=== PATIENT | female | born 1965 | race Caucasian/White ===

== ENCOUNTER 2017-02-21 11:59 | Inpatient (IN) ==
[2017-02-21] MEDS ORDERED: 0.9 % Sodium Chloride 1,000 ML IVC ONE ×3 (12:15→15:14)
--- NOTE | 2017-02-21 12:40 | Emergency Department Note ---
Disposition Clinical Impression: Lactic acidosis Umbilical hernia Qualifiers: Obstruction and gangrene presence: without obstruction or gangrene Qualified Code(s): K42.9 - Umbilical hernia without obstruction or gangrene Disposition: Admitted As Inpatient Condition: Good Time of Disposition: 15:36 Abdominal Pain HPI - General Chief Complaint: ED Abdominal Pain Stated Complaint: abd pain Time Seen by Provider: 02/21/17 12:14 Source: patient Mode of arrival: ambulatory Limitations: no limitations Nursing Notes Reviewed: Yes Vital Signs Reviewed: Yes - History of Present Illness HPI Narrative: 51 [place] old female presnets to the ED with complaints of umbilical hernia pain. She has had a cholecystectomy in the past by Dr. Bergeron a few years ago and has started to feel is come out. It is reducible and does not appear to be strangulated or incarcerated. Atinet vital signs are stable and she states that she has some nausea associated with it. Marija states that her children have had hernias in the past and they think it is simliar to what they have had. She has nausea now. she is able ot pass stool and gas without a prblems. Denies heamturia, bloody stools or fevers. Pain Scale: 8 - Related Data Home Medications Medication Instructions Recorded Confirmed Lisinopril [Zestril] 20 mg PO DAILY 11/09/14 11/09/14 Metformin [Glucophage] 500 mg PO BIDWM 11/09/14 11/09/14 Metoprolol [Lopressor] 25 mg PO BID 11/09/14 11/09/14 l-Norgest/E.estradiol-E.estrad 1 each PO 11/09/14 11/09/14 [Seasonique 0.15-0.03-0.01 Tab] Previous Rx's Medication Instructions Recorded GuaiFENesin ER [Mucinex] 1,200 mg PO BID #20 tbbp.12hr 05/10/15 Albuterol Sulfate [Albuterol 2 puff IH Q4HR PRN #1 unit 05/27/15 Inhaler] Amoxicillin/Clavulanate [Augmentin] 875 mg PO BIDWM #20 tablet 05/27/15 Fluconazole [Diflucan] 150 mg PO Q72H #3 tablet 05/27/15 Ipratropium/Albuterol Neb [Duoneb] 3 ml IH Q4HR PRN #100 vial.neb 05/27/15 Nebulizer Accessories [Pillow Mask] 1 each MC PRN PRN #1 each 05/27/15 Promethazine/Codeine 5 ml PO Q4HR PRN #120 ml 05/27/15 [Phenergan/Codeine] Allergies Allergy/AdvReac Type Severity Reaction Status Date / Time meloxicam Allergy Hives Verified 02/21/17 12:11 metoclopramide [From Reglan] Allergy Hives Verified 02/21/17 12:11 morphine Allergy Fever Verified 02/21/17 12:11 ondansetron Allergy Hives Verified 02/21/17 12:11 [From Zofran (as hydrochloride)] Constitutional: Denies: fever, chills, weakness, weight change Eyes: Denies: eye pain, eye discharge, vision change ENT ED: Denies: ear pain, throat pain, dental pain, hearing loss, epistaxis, congestion, dysphagia Cardiovascular: Denies: chest pain, palpitations, dyspnea on exertion, edema, syncope Respiratory: Denies: cough, dyspnea, wheezes, hemoptysis, stridor Gastrointestinal: Reports: abdominal pain, nausea. Denies: vomiting, diarrhea, constipation, hematemesis, melena, hematochezia Genitourinary: Denies: dysuria, frequency, hematuria, discharge Musculoskeletal: Denies: back pain, neck pain, arthralgia, myalgia Integumentary: Denies: rash, abrasion, lesions Neurological: Denies: headache, weakness, numbness, paresthesias, confusion, abnormal gait, vertigo Psychiatric: Denies: anxiety, depression, suicidal thoughts, homicidal thoughts , auditory hallucinations, visual hallucinations Endocrine: Denies: fatigue Hematological/Lymphatic: Denies: easy bleeding, easy bruising Allergic/Immunologic: Denies: facial swelling, urticaria Abdominal Pain PMH - Past Medical History Medical history: Reports: diabetes, hypertension, other Female Surgical History: Reports: other ORGANISATION AND [employer] 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 Psychiatric history: Reports: no psych history - Social History Smoking status: Never smoker Alcohol use: Reports: none Drug use: Reports: none Physical Exam - General Limitations: no limitations General appearance: alert - Head Head exam: atraumatic, normocephalic, normal inspection - Eye Eye exam: Present: normal appearance, PERRL, EOMI - Expanded Eye Exam Pupils: Bilateral: reactive - ENT ENT exam: normal exam, normal oropharynx, mucous membranes moist - Expanded ENT Exam External ear exam: Present: normal external inspection Mouth exam: Present: normal external inspection Teeth exam: Present: normal inspection Throat exam: Present: normal inspection - Neck Neck exam: Present: normal inspection, full ROM, trachea midline - Chest Chest inspection: Present: normal inspection, symmetric chest wall rise - Respiratory Respiratory exam: Present: normal lung sounds bilaterally - Cardiovascular Cardiovascular exam: Present: regular rate, normal rhythm, normal heart sounds - Abdominal Exam Abdominal exam: Present: soft, Non-Tender, hernia (umbilical at the 0200 position, felt during a cough and reducible. ). Absent: tenderness, distention , guarding, rebound, rigidity Abdominal tenderness: Present: mild (periumbilical) - Extremities Exam Extremities exam: Present: normal inspection, full ROM. Absent: tenderness, pedal edema - Expanded Upper Extremity Exam Shoulder exam: Present: normal inspection, full ROM Arm exam: Present: normal inspection, full ROM Elbow exam: Present: normal inspection, full ROM Forearm/Wrist exam: Present: normal inspection, full ROM Hand exam: Present: normal inspection, full ROM Vascular exam: Normal: capillary refill, radial pulse - Expanded Lower Extremity Exam Hip/Pelvis exam: Present: normal inspection, full ROM Upper leg exam: Present: normal inspection, full ROM Knee exam: Present: normal inspection, full ROM Lower leg exam: Present: normal inspection, full ROM Ankle exam: Present: normal inspection, full ROM Foot/toe exam: Present: normal inspection, full ROM Neurovascular/Tendon exam: Absent: motor deficit, sensory deficit, tendon deficit - Back Exam Back exam: Present: normal inspection, full ROM. Absent: tenderness - Neurological Exam Neurological exam: Present: alert, oriented X3 - Expanded Neurological Exam Patient oriented to: Present: person, place, time Coma Scale Eye Opening: Spontaneous Coma Scale Motor Response: Obeys Commands Coma Scale Verbal Response: Oriented Coma Scale Total: 15 - Psychiatric Psychiatric exam: Present: normal affect, normal mood - Skin Skin exam: Present: warm, dry, intact, normal color Course Course Narrative: we will do lab work and ABCT, zofran/IVF for thearpy - Consultations Consultation #1: discussed case with radiologist to address the umbilical hernia finding and to address whether there is a possible obstruction vs. gut evaluation. He staets that it does not appear there is a transition point and that there does not appear to be an obstruction or necrotci bowel or strangulatin/incarceration to the bowel. I will still admit it to medicine and consult with surgery due to incresd lactic acid Time: 14:34 Consultation #2: discussed case with Jose Luisisrrael and she has taken a look at the ABCT herself and stats it appers it is fatty tissue that is entrapped. She states that she will see the patinet in consult with admission to medicine. Time: 15:35 Vital Signs Temperature 99 F 02/21/17 12:11 Pulse Rate 88 02/21/17 12:11 Respiratory Rate 20 02/21/17 12:11 Blood Pressure 119/79 02/21/17 12:11 O2 Sat by Pulse Oximetry 97 02/21/17 12:11 Temperature 99 F 02/21/17 12:11 Pulse Rate 89 02/21/17 15:17 Respiratory Rate 18 02/21/17 15:17 Blood Pressure 104/63 02/21/17 15:17 O2 Sat by Pulse Oximetry 98 02/21/17 15:17 Oxygen Delivery Oxygen Delivery Room Air Abdominal Pain - Lab Data Result diagrams: 02/21/17 12:40 02/21/17 12:40 Lab Results 02/21/17 02/21/17 02/21/17 Range/Units 12:40 12:40 12:40 WBC 8.6 (4.3-11.1) K/mcL RBC 5.06 H (3.82-4.97) M/mcL Hgb 13.8 (11.5-15.4) g/dL Hct 44.1 (35.3-44.9) % MCV 87.2 (83.0-100.0) fL MCH 27.3 L (28.0-33.3) pg MCHC 31.3 L (31.6-35.5) g/dL RDW 14.5 (11.5-14.5) % Plt Count 275 (140-400) K/mcL MPV 9.5 (9.4-12.4) fL Immature Gran % 0.3 (0-4) % Seg Neutrophils % 65.1 % Lymphocytes % 25.6 % Monocytes % 7.4 % Eosinophils % 1.3 % Basophils % 0.3 % Neutrophils # 5.6 (1.6-8.9) K/mcL Lymphocytes # 2.2 (0.6-4.6) K/mcL Monocytes # 0.6 (0.0-1.3) K/mcL Eosinophils # 0.1 (0.0-0.6) K/mcL Basophils # 0.0 (0.0-0.2) K/mcL Sodium 135 L (136-145) mEq/L Potassium 4.7 H (3.5-4.5) mEq/L Chloride 100 (98-109) mEq/L Carbon Dioxide 19 (19-29) mEq/L BUN 17 (7-20) mg/dL Creatinine 0.71 (0.57-1.11) mg/dL Est GFR ( Amer) > 60 (> 60) Est GFR (Non-Af Amer) > 60 (> 60) BUN/Creatinine Ratio 24 (6-26) Glucose 200 H (70-99) mg/dL Calculated Osmolality 287 (280-300) Lactic Acid 5.7 H* (0.5-2.2) mmol/L Calcium 9.6 (8.6-10.8) mg/dL Total Bilirubin 0.2 (0.2-1.2) mg/dL Direct Bilirubin 0.1 (0.0-0.5) mg/dL Indirect Bilirubin 0.1 (0.0-1.2) mg/dL AST 14 (5-34) Units/L ALT 13 (0-55) Units/L Alkaline Phosphatase 80 (38-126) Units/L Serum Total Protein 7.3 (6.0-8.3) g/dL Albumin 3.1 L (3.5-5.0) g/dL Globulin 4.2 H (2.4-3.5) g/dL Albumin/Globulin Ratio 0.7 L (1.1-2.2) Amylase 72 (25-125) Units/L Lipase 66 (8-78) Units/L Urine Color (Yellow) Urine Clarity (Clear) Urine pH (5.0-8.0) pH Units Ur Specific Drain (1.010-1.025) Urine Protein (Neg-Trace) mg/dL Urine Glucose (UA) (Normal) mg/dL Urine Ketones (Negative) mg/dL Urine Blood (Negative) Urine Nitrite (Negative) Urine Bilirubin (Negative) Urine Urobilinogen (Normal) mg/dL Ur Leukocyte Esterase (Negative) Urine Microscopic RBC (0-3) per hpf Urine Microscopic WBC (0-3) per hpf Ur Squamous Epith Cells (None-Few) per lpf Urine Bacteria (None-Few) per hpf Hyaline Casts (None-Few) per lpf Ur Culture Indicated? (NO) 02/21/17 Range/Units 12:48 WBC (4.3-11.1) K/mcL RBC (3.82-4.97) M/mcL Hgb (11.5-15.4) g/dL Hct (35.3-44.9) % MCV (83.0-100.0) fL MCH (28.0-33.3) pg MCHC (31.6-35.5) g/dL RDW (11.5-14.5) % Plt Count (140-400) K/mcL MPV (9.4-12.4) fL Immature Gran % (0-4) % Seg Neutrophils % % Lymphocytes % % Monocytes % % Eosinophils % % Basophils % % Neutrophils # (1.6-8.9) K/mcL Lymphocytes # (0.6-4.6) K/mcL Monocytes # (0.0-1.3) K/mcL Eosinophils # (0.0-0.6) K/mcL Basophils # (0.0-0.2) K/mcL Sodium (136-145) mEq/L Potassium (3.5-4.5) mEq/L Chloride (98-109) mEq/L Carbon Dioxide (19-29) mEq/L BUN (7-20) mg/dL Creatinine (0.57-1.11) mg/dL Est GFR ( Amer) (> 60) Est GFR (Non-Af Amer) (> 60) BUN/Creatinine Ratio (6-26) Glucose (70-99) mg/dL Calculated Osmolality (280-300) Lactic Acid (0.5-2.2) mmol/L Calcium (8.6-10.8) mg/dL Total Bilirubin (0.2-1.2) mg/dL Direct Bilirubin (0.0-0.5) mg/dL Indirect Bilirubin (0.0-1.2) mg/dL AST (5-34) Units/L ALT (0-55) Units/L Alkaline Phosphatase (38-126) Units/L Serum Total Protein (6.0-8.3) g/dL Albumin (3.5-5.0) g/dL Globulin (2.4-3.5) g/dL Albumin/Globulin Ratio (1.1-2.2) Amylase (25-125) Units/L Lipase (8-78) Units/L Urine Color Dark Yellow (Yellow) Urine Clarity Clear (Clear) Urine pH 6.0 (5.0-8.0) pH Units Ur Specific Drain > 1.030 H (1.010-1.025) Urine Protein 100 H (Neg-Trace) mg/dL Urine Glucose (UA) 250 H (Normal) mg/dL Urine Ketones Negative (Negative) mg/dL Urine Blood Negative (Negative) Urine Nitrite Negative (Negative) Urine Bilirubin Small H (Negative) Urine Urobilinogen Normal (Normal) mg/dL Ur Leukocyte Esterase Negative (Negative) Urine Microscopic RBC 3-5 H (0-3) per hpf Urine Microscopic WBC 0-3 (0-3) per hpf Ur Squamous Epith Cells Many H (None-Few) per lpf Urine Bacteria None Seen (None-Few) per hpf Hyaline Casts None Seen (None-Few) per lpf Ur Culture Indicated? NO (NO)
[2017-02-21] MEDS ORDERED: Metoclopramide 10 MG/2 ML VIAL IVP ONE (12:41)
[2017-02-21] MEDS ORDERED: *HR* Promethazine 25 MG/ML VIAL IVP ONE (12:48)
[2017-02-21 13:00] LABS: Basophils % 0.3 %; Eosinophils # 0.1 K/mcL (0.0-0.6); Eosinophils % 1.3 %; Hematocrit 44.1 % (35.3-44.9); Hemoglobin 13.8 g/dL (11.5-15.4); Immature Granulocytes % 0.3 % (0-4); Lymphocytes # 2.2 K/mcL (0.6-4.6); Lymphocytes % 25.6 %; Mean Corpuscular HGB Conc 31.3 g/dL (31.6-35.5); Mean Corpuscular Hemoglobin 27.3 pg (28.0-33.3); Mean Corpuscular Volume 87.2 fL (83.0-100.0); Mean Platelet Volume 9.5 fL (9.4-12.4); Monocytes # 0.6 K/mcL (0.0-1.3); Monocytes % 7.4 %; Neutrophils # 5.6 K/mcL (1.6-8.9); Platelet Count 275 K/mcL (140-400); Red Blood Count 5.06 M/mcL (3.82-4.97); Red Cell Distribution Width 14.5 % (11.5-14.5); Segmented Neutrophils % 65.1 %
[2017-02-21 13:06] LABS: Bilirubin,Urine Small (Negative); Blood,Urine Negative (Negative); Clarity,Urine Clear (Clear); Color,Urine Dark Yellow (Yellow); Glucose,Urine (UA) 250 mg/dL (Normal); Ketones,Urine Negative (Negative); Leukocyte Esterase,Urine Negative (Negative); Nitrite,Urine Negative (Negative); Protein,Urine 100 mg/dL (Neg-Trace); Specific Gravity,Urine > 1.030 (1.010-1.025); Urobilinogen,Urine Normal (Normal)
[2017-02-21 13:08] LABS: Bacteria,Urine None Seen per hpf (None-Few); Hyaline Casts,Urine None Seen per lpf (None-Few); Squamous Epithelial Cell,Urine Many per lpf (None-Few); WBC,Urine 0-3 per hpf (0-3)
[2017-02-21 13:14] LABS: Alanine Aminotransferase 13 Units/L (0-55); Albumin 3.1 g/dL (3.5-5.0); Albumin/Globulin Ratio 0.7 (1.1-2.2); Alkaline Phosphatase 80 Units/L (38-126); Amylase 72 Units/L (25-125); Aspartate Amino Transferase 14 Units/L (5-34); BUN/Creatinine Ratio 24 (6-26); Bilirubin,Direct 0.1 mg/dL (0.0-0.5); Bilirubin,Indirect 0.1 mg/dL (0.0-1.2); Bilirubin,Total 0.2 mg/dL (0.2-1.2); Blood Urea Nitrogen 17 mg/dL (7-20); Calcium 9.6 mg/dL (8.6-10.8); Carbon Dioxide 19 mEq/L (19-29); Chloride 100 mEq/L (98-109); Globulin 4.2 g/dL (2.4-3.5); Glucose 200 mg/dL (70-99); Lipase 66 Units/L (8-78); Osmolality,Calculated 287 (280-300); Potassium 4.7 mEq/L (3.5-4.5); Sodium 135 mEq/L (136-145); Total Protein 7.3 g/dL (6.0-8.3); eGFR For African Americans > 60 (> 60); eGFR For Non-African Americans > 60 (> 60)
[2017-02-21] MEDS ORDERED: *HR* FentaNYL (PF) 100 MCG/2 ML VIAL IVP ONE (13:55)
--- NOTE | 2017-02-21 15:40 | General Surgery Consult Note ---
<Letitia Camarillo - Last Filed: 02/21/17 15:49> Date of Encounter: 02/21/17 Time of Encounter: 15:15 Assessment and Plan (1) Umbilical hernia Current Visit: Yes Status: Acute No acute inflammatory changes noted on CT scan Supportive care and pain control Empiric IV antibiotics- Zosyn Serial abdominal exams IV fluids May have clear liquids as tolerated NPO after midnight Repeat am labs Qualifiers: Obstruction and gangrene presence: without obstruction or gangrene Qualified Code(s): K42.9 - Umbilical hernia without obstruction or gangrene (2) Lactic acidosis Current Visit: Yes Status: Acute IV fluids Repeat per hospitalist (3) Hyperlipidemia Current Visit: Yes Status: Chronic Qualifiers: Hyperlipidemia type: unspecified Qualified Code(s): E78.5 - Hyperlipidemia , unspecified (4) Obesity (BMI 30-39.9) Current Visit: Yes Status: Chronic (5) Thoracic aortic aneurysm Current Visit: Yes Status: Chronic Followed per Dr. Pimentel as outpatient Qualifiers: Presence of rupture: without rupture Qualified Code(s): I71.2 - Thoracic aortic aneurysm, without rupture (6) Adnexal mass Current Visit: Yes Status: Acute Consider pelvic ultrasound for further evaluation of adnexal mass (left) [employer] to evaluate for further concerns Management per hospitalist (7) History of hypertension Current Visit: No Status: Chronic Currently normotensive Management per hospitalist (8) Non-insulin dependent type 2 diabetes mellitus Current Visit: No Status: Chronic BS- 200 Management per hospitalist History of Present Illness Consult date: 02/21/17 Reason for consult: abdominal pain Requesting physician: Anisa Diane History of present illness: Mrs. Carpenter is a very pleasant 51-year-old female who presented to the office today with a three-day history of umbilical discomfort. She states that the pain came on suddenly approximately 3 days ago and has progressively worsened. She states that the pain is sharp and stabbing and is focused in the umbilical region and does radiate around to bilateral sides. She denies any aggravating or alleviating factors. She has never experienced pain like this in the past. She does report significant nausea which she attributes to the significant amount of pain she is experiencing. Denies any vomiting. She has no appetite at this time. She states that she does have diarrhea but this is chronic for her. She states that she has IBD and has diarrhea approximately 3 times per day. She denies any fevers or chills. She denies any shortness of breath or chest pains. She denies any difficulty with urination. She is diabetic and states that her blood sugars have been running in the 140s. She has had a CAT scan which shows an umbilical hernia without significant inflammatory changes. We have been asked to see and evaluate the patient for recommendations. Past Med Surg Social Fam HX - Past Medical History Source: patient, old records reviewed Medical history: aortic aneurysm (Ascending thoracic aortic aneurysm- Followed by Dr. Pimentel), diabetes (Type 2- non insulin dependent), GERD, hyperlipidemia, hypertension, other (Obesity; Fibromyalgia) Psychiatric history: anxiety, depression - Past Surgical History Surgical History: appendectomy, cholecystectomy, other ( X 2; colonoscopy 3 years ago (normal)) - Social History Smoking Status: Never smoker Smokeless Tobacco Status: No Alcohol use: none Drug use: none Occupational status: employed Activity Level: Independent ambulation - Family History Mother Living Status: Still Living Hx Family Cancer: Yes (breast cancer (40's)) Hx Family GI Disorders: Yes (Colon polyps) Hx Family Endocrine Disorder: Yes (diabeties) Father Living Status: Age at : 76 Cause of : Sepsis Hx Family Endocrine Disorder: Yes (Diabetes Mellitus) Brother Living Status: Age at : 54 Cause of : Liver cancer Hx Family Cancer: Yes (Liver cancer) Daughter Living Status: Still Living Hx Family Cardiac Disorders: Yes (Heart arrhythmia) Son Living Status: Still Living Hx Family Musculoskeletal Disorders: Yes (DDD) Medications and Allergies Lisinopril [Zestril] 20 mg PO DAILY 11/09/14 [History] Metformin [Glucophage] 1,000 mg PO BIDWM 11/09/14 [History] Metoprolol [Lopressor] 25 mg PO BID 11/09/14 [History] Aripiprazole [Abilify] 2.5 mg PO DAILY 02/21/17 [History] Aspirin [Lo-Dose Aspirin EC] 81 mg PO DAILY 02/21/17 [History] Atorvastatin [Lipitor] 40 mg PO HS 02/21/17 [History] Canagliflozin [Invokana] 300 mg PO DAILY 02/21/17 [History] DULoxetine [Cymbalta] 90 mg PO DAILY 02/21/17 [History] Exenatide Microspheres [Bydureon Pen] 2 mg SQ QWEEK 02/21/17 [History] HYDROcodone/Acet 5/325 mg [[place] 5-325 mg] 1 tab PO Q8H 02/21/17 [History] Norethindrone-E.estradiol-Iron [Lo Loestrin Fe 1-10 Tablet] 1 tab PO DAILY 02/21 [History] [place]-3 Acid Ethyl Esters [Lovaza] 1 gm PO DAILY 02/21/17 [History] Omeprazole [PriLOSEC] 20 mg PO DAILY 02/21/17 [History] Triamterene/Hydrochlorothiazid [Dyazide 37.5-25 Capsule] 1 cap PO DAILY [History] 3 Allergy/AdvReac Type Severity Reaction Status Date / Time meloxicam Allergy Hives Verified 02/21/17 12:11 metoclopramide [From Reglan] Allergy Hives Verified 02/21/17 12:11 morphine Allergy Fever Verified 02/21/17 12:11 ondansetron Allergy Hives Verified 02/21/17 12:11 [From Zofran (as hydrochloride)] Review of Systems All systems PM: reviewed and no additional remarkable complaints except as stated (in the HPI) All systems PM: A 10-system review of systems was performed and is negative for pertinent findings except as documented above in the HPI. General Surgery Exam Initial Vital Signs Temp Pulse Resp BP Pulse Ox 99 F 88 20 119/79 97 02/21/17 12:11 02/21/17 12:11 02/21/17 12:11 02/21/17 12:11 02/21/17 12:11 - General physical appearance well developed, well nourished, moderate pain - Eyes PERRL, normal ocular movement - ENT normal mucosa, atraumatic, normocephalic - Neck trachea midline - Respiratory normal respiratory effort, clear to auscultation - Cardiovascular Cardiovascular exam: Present: RRR - Abdomen Abdomen general surgery: Present: bowel sounds present, soft, tender ( Perumbilical) - Integumentary Integumentary general surgery: Present: warm and dry - Neurologic Present: CN 2-12 grossly intact - Musculoskeletal Present: normal gait, normal posture - Psychiatric Psychiatric general surgery: Present: appropriate, oriented to person, oriented to place, oriented to time, speech is normal, memory intact Exam Initial Vital Signs Temp Pulse Resp BP Pulse Ox 99 F 88 20 119/79 97 02/21/17 12:11 02/21/17 12:11 02/21/17 12:11 02/21/17 12:11 02/21/17 12:11 Results - Labs 02/21/17 12:40 02/21/17 12:40 Abnormal lab results RBC 5.06 M/mcL (3.82-4.97) H 02/21/17 12:40 MCH 27.3 pg (28.0-33.3) L 02/21/17 12:40 MCHC 31.3 g/dL (31.6-35.5) L 02/21/17 12:40 Sodium 135 mEq/L (136-145) L 02/21/17 12:40 Potassium 4.7 mEq/L (3.5-4.5) H 02/21/17 12:40 Glucose 200 mg/dL (70-99) H 02/21/17 12:40 Lactic Acid 5.7 mmol/L (0.5-2.2) H* 02/21/17 12:40 Albumin 3.1 g/dL (3.5-5.0) L 02/21/17 12:40 Globulin 4.2 g/dL (2.4-3.5) H 02/21/17 12:40 Albumin/Globulin Ratio 0.7 (1.1-2.2) L 02/21/17 12:40 Ur Specific [place] > 1.030 (1.010-1.025) H 02/21/17 12:48 Urine Protein 100 mg/dL (Neg-Trace) H 02/21/17 12:48 Urine Glucose (UA) 250 mg/dL (Normal) H 02/21/17 12:48 Urine Bilirubin Small (Negative) H 02/21/17 12:48 Urine Microscopic RBC 3-5 per hpf (0-3) H 02/21/17 12:48 Ur Squamous Epith Cells Many per lpf (None-Few) H 02/21/17 12:48 All other labs normal. - Imaging Additional studies: Abdomen/Pelvis CT 02/21/17 12:15 IMPRESSION: 1. No acute findings identified in the abdomen and pelvis. 2. 4.7 cm cystic lesion in the left adnexa. Consider ovarian cyst or less likely, cystic ovarian neoplasm in the differential. Further assessment with dedicated pelvic ultrasound may be helpful. D/ / Nate Humphries MD / Nate Humphries MD Interpreting Provider: Nate Humphries MD Consult Discharge Plan - Plan Referrals: Marbin Ruvalcaba MD [Primary Care Provider] - - Attending Attestation For this encounter, I have reviewed the GEM TECHNICIAN or PA documentation, treatment plan, and medical decision making; and I have had face to face time with this patient. <Brittnee Shahid - Last Filed: 02/23/17 12:14> Date of Encounter: 02/22/17 Assessment and Plan (1) Incarcerated umbilical hernia Current Visit: Yes Status: Chronic discussed with patient she has an incarcerated umbilical hernia, will plan open repair, due to elevated lactate on admission am a concerned regarding omental ischemia, may not put mesh in place, hernia defect appears small, will plan open primary repair incarcerated umbilical hernia, possible mesh, risks and benefits discussed and she wishes to proceed ok diet ambulate prn pain control Past Med Surg Social Fam HX - Family History Mother Race: Family Member Ethnicity: Non- Living Status: Still Living Hx Family Cardiac Disorders: Yes (HTN) Hx Family Cancer: Yes (Breast cancer (40's)) Hx Family GI Disorders: Yes (Colon pre-cancerous polyps) Hx Family Endocrine Disorder: Yes (DM) Father Living Status: Age at : 76 Cause of : Sepsis Hx Family Cardiac Disorders: Yes (CAD, HTN) Hx Family Endocrine Disorder: Yes (Diabetes Mellitus) Brother Race: Family Member Ethnicity: Non- Living Status: Age at : 54 Cause of : Liver cancer, bone cancer Hx Family Cancer: Yes (Liver cancer, bone cancer) Daughter Race: Family Member Ethnicity: Non- Living Status: Still Living Hx Family Cardiac Disorders: Yes (Heart arrhythmia) Son Race: Family Member Ethnicity: Non- Living Status: Still Living Hx Family Musculoskeletal Disorders: Yes (DDD) Sister Race: Family Member Ethnicity: Non- Living Status: Still Living Hx Family Cardiac Disorders: Yes (HTN) Hx Family Endocrine Disorder: Yes (DM) Review of Systems All systems PM: A 10-system review of systems was performed and is negative for pertinent findings except as documented above in the HPI. General Surgery Exam Initial Vital Signs Temp Pulse Resp BP Pulse Ox 99 F 88 20 119/79 97 02/21/17 12:11 02/21/17 12:11 02/21/17 12:11 02/21/17 12:11 02/21/17 12:11 - General physical appearance well nourished, no distress, moderate pain, obese - Eyes PERRL, normal ocular movement - ENT normal mucosa, normocephalic - Neck trachea midline - Respiratory normal expansion, normal respiratory effort - Cardiovascular Cardiovascular exam: Present: RRR - Abdomen Abdomen general surgery: Present: bowel sounds present, soft, tender. Absent: distended, guarding, rebound - Integumentary Integumentary general surgery: Present: warm and dry - Neurologic Present: CN 2-12 grossly intact - Musculoskeletal Present: normal gait, normal posture - Psychiatric Psychiatric general surgery: Present: A&Ox3, speech is normal Exam Initial Vital Signs Temp Pulse Resp BP Pulse Ox 99 F 88 20 119/79 97 02/21/17 12:11 02/21/17 12:11 02/21/17 12:11 02/21/17 12:11 02/21/17 12:11 Results - Labs 02/23/17 04:15 02/23/17 04:15 Abnormal lab results MCH 27.9 pg (28.0-33.3) L 02/23/17 04:15 MCHC 30.9 g/dL (31.6-35.5) L 02/23/17 04:15 RDW 14.7 % (11.5-14.5) H 02/23/17 04:15 Glucose 159 mg/dL (70-99) H 02/23/17 04:15 POC Glucose 137 (58-89) H 02/23/17 08:08 Hemoglobin A1c 7.4 % (-5.6) H 02/21/17 12:40 Magnesium 1.3 mg/dL (1.6-2.6) L 02/22/17 07:00 Albumin 2.9 g/dL (3.5-5.0) L 02/23/17 04:15 Globulin 3.6 g/dL (2.4-3.5) H 02/23/17 04:15 Albumin/Globulin Ratio 0.8 (1.1-2.2) L 02/23/17 04:15 Triglycerides 737 mg/dL (< 150) H 02/22/17 07:00 Cholesterol 286 mg/dL (< 200) H 02/22/17 07:00 HDL Cholesterol 38 mg/dL (40-59) L 02/22/17 07:00 Cholesterol/HDL Ratio 7.5 (0-4.9) H 02/22/17 07:00 Ur Specific [place] > 1.030 (1.010-1.025) H 02/21/17 12:48 Urine Protein 100 mg/dL (Neg-Trace) H 02/21/17 12:48 Urine Glucose (UA) 250 mg/dL (Normal) H 02/21/17 12:48 Urine Bilirubin Small (Negative) H 02/21/17 12:48 Urine Microscopic RBC 3-5 per hpf (0-3) H 02/21/17 12:48 Ur Squamous Epith Cells Many per lpf (None-Few) H 02/21/17 12:48 Diabetes panel 02/23/17 Range/Units 04:15 Sodium 136 (136-145) mEq/L Potassium 4.4 (3.5-4.5) mEq/L Chloride 103 (98-109) mEq/L Carbon Dioxide 23 (19-29) mEq/L BUN 13 (7-20) mg/dL Creatinine 0.71 (0.57-1.11) mg/dL Glucose 159 H (70-99) mg/dL Calcium 9.4 (8.6-10.8) mg/dL AST 15 (5-34) Units/L ALT 17 (0-55) Units/L Alkaline Phosphatase 77 (38-126) Units/L Albumin 2.9 L (3.5-5.0) g/dL Calcium panel 02/23/17 Range/Units 04:15 Calcium 9.4 (8.6-10.8) mg/dL Albumin 2.9 L (3.5-5.0) g/dL Pituitary panel 02/23/17 Range/Units 04:15 Sodium 136 (136-145) mEq/L Potassium 4.4 (3.5-4.5) mEq/L Chloride 103 (98-109) mEq/L Carbon Dioxide 23 (19-29) mEq/L BUN 13 (7-20) mg/dL Creatinine 0.71 (0.57-1.11) mg/dL Glucose 159 H (70-99) mg/dL Calcium 9.4 (8.6-10.8) mg/dL Adrenal panel 02/23/17 Range/Units 04:15 Sodium 136 (136-145) mEq/L Potassium 4.4 (3.5-4.5) mEq/L Chloride 103 (98-109) mEq/L Carbon Dioxide 23 (19-29) mEq/L BUN 13 (7-20) mg/dL Creatinine 0.71 (0.57-1.11) mg/dL Glucose 159 H (70-99) mg/dL Calcium 9.4 (8.6-10.8) mg/dL Total Bilirubin 0.2 (0.2-1.2) mg/dL AST 15 (5-34) Units/L ALT 17 (0-55) Units/L Alkaline Phosphatase 77 (38-126) Units/L Albumin 2.9 L (3.5-5.0) g/dL All other labs normal. - Imaging CT scan - abdomen: report reviewed, image reviewed CT scan - pelvis: report reviewed, image reviewed - Attending Attestation I have personally performed a face to face evaluation on this patient. I have reviewed and agree with the care plan. History and Exam by me shows:
[2017-02-21] MEDS ORDERED: Piperacillin/Tazobactam 3.375 GM/200 ML BAG IVPB SCH (16:13)
--- NOTE | 2017-02-21 16:23 | Event Note ---
Date of Encounter: 02/21/17 Time of Encounter: 16:20 Seen and evaluated with MARIELENA Hardin 51 F with Obesity, DM, Known thoracica teodoro aneurysm She presented with 3 days history of sever abdominal pain in the maine-umbilical region which radiates to her left adnexal region. She is currently pain-free at time of evaluation. Examination vital signs are stable, abdomen is not acute, vague tenderness maine- umbilical region. No palpable masses due to obesity. Chest is Clear to auscultation bilaterally heart sounds S1 and S2. No pedal edema. Labs and imaging reviewed CBC is unremarkable lactic acidosis with a lactate of 5.7 mild hyponatremia secondary to hyperglycemia. Urine analysis with concentrated urine. Abdomen and pelvis CT reveals a left 4.6cm ovarian Cyst. No evidence of colitis, enteritis, or any bowel problems. Assessment and plan Lactic Acidosis: Continue IV fluid hydration and repeat lactate now and continue to monitor. Abdominal pain: Abdomen is currently not acute, no evidence of bowel ischemia or necrosis. BUN/creatinine is within normal limits. Patient denies any bleeding per rectum or melena stools. General surgery evaluation noted and appreciated. Abdominal exams. Abdomen pain is probably due to fat necrosis. Diabetes: possibly uncontrolled, check A1c, sliding scale insulin, resume patient's home medications. Rest of details are as in MARIELENA Hardin's documentation, which reflects our plan of care
[2017-02-21] MEDS ORDERED: Naloxone 0.4 MG/ML INJ IVP PRN (16:35)
[2017-02-21] MEDS ORDERED: Acetaminophen 325 MG TABLET PO PRN (16:35)
[2017-02-21] MEDS ORDERED: D5% in Water 1,000 ML IVC PRN (16:52)
[2017-02-21] MEDS ORDERED: Dextrose Gel 15 GM PO PRN ×2 (16:52)
[2017-02-21] MEDS ORDERED: *HR* Dextrose 50 % in Water (Syg) 50 ML SYRINGE IVP PRN (16:52)
[2017-02-21 17:37] LABS: Hemoglobin A1C 7.4 %
--- NOTE | 2017-02-21 17:54 | Internal Med History&Physical ---
<Tevin Hardin - Last Filed: 02/21/17 18:37> Date of Encounter: 02/21/17 Time of Encounter: 16:15 Assessment and Plan (1) Abdominal pain Current visit: Yes Status: Acute Acute abdominal pain that pt. states began two days ago and is worse around umbilical area d/t umbilical hernia. Area size of a medium potato is present to the left of umbilicus and is tender to palpation. Pt. reports some nausea and reduce appetite w/symptoms. Pt. denies unusual bleeding. No evidence of bowel ischemia or necrosis on CT. Pt. denies Clear liquid diet and NPO @ midnight. Stair-step pain medication for pain mgmt. IVP Phenergan for nausea and continue pts. Prilosec. Surgical consult ordered and we appreciate the evaluation. Pt. discussed w/Dr. Nayak who is in agreement w/plan of care. Pt. is at moderate risk for further morbidity based on current sx, hx, and risk factors. Observation. Qualifiers: Abdominal location: lower abdomen, unspecified Qualified Code(s): R10.30 - Lower abdominal pain, unspecified (2) Lactic acidosis Current visit: Yes Status: Acute Acute lactic acidosis likely r/t fat necrosis. Initial lactic acid 5.7 on admission. F/u lactic 2.6. Will repeat lactic acid in a.m. labs. Pt. received IV fluid boluses in ED. Continue IV 0.9 NS @ 100 mL/HR. Clear liquid diet. NPO @ midnight. (3) Adnexal mass Current visit: Yes Status: Acute CT of the abdomen/pelvis today shows 4.7 cm cystic lesion in the left adnexa. Consider ovarian cyst or less likely, cystic ovarian neoplasm in the differential. Further assessment with dedicated pelvic ultrasound may be helpful. No acute findings identified in the abdomen or pelvis. US of pelvis/ transvaginal Doppler non-ob ordered. Will consider OB consult based on US results. (4) Diabetes Current visit: Yes Status: Chronic Hx of chronic diabetes controlled by metformin, Invokana, and Exenatide injections every Monday. Pt. reports she will not need Exenatide until next Monday. Will hold metformin and continue Invokana. Add low-dose correction sliding scale insulin and hypoglycemic protocol. BG checks ACHS. A1c in a.m. labs. Qualifiers: Diabetes mellitus type: type 2 Diabetes mellitus complication status: with unspecified complications Diabetes mellitus nursing home insulin use: without nursing home use Qualified Code(s): E11.8 - Type 2 diabetes mellitus with unspecified complications (5) HTN (hypertension) Current visit: Yes Status: Chronic Hx of chronic HTN. Monitor pt. and VS. Continue patient's lisinopril and metoprolol. Qualifiers: Hypertension type: essential hypertension Qualified Code(s): I10 - Essential (primary) hypertension (6) HLD (hyperlipidemia) Current visit: Yes Status: Chronic Hx of chronic HLD. Lipid panel in a.m. labs. Continue patient's Lipitor. Qualifiers: Hyperlipidemia type: pure hypercholesterolemia Qualified Code(s): E78.00 - Pure hypercholesterolemia, unspecified; E78.0 - Pure hypercholesterolemia (7) GERD (gastroesophageal reflux disease) Current visit: Yes Status: Chronic Hx of chronic GERD. IVP phenergan 12.5 mg Q6 PRN. Continue pts. Prilosec. Qualifiers: Esophagitis presence: esophagitis presence not specified Qualified Code(s) : K21.9 - Gastro-esophageal reflux disease without esophagitis (8) Thoracic aortic aneurysm without rupture Current visit: Yes Status: Chronic Stable. Pt. is followed by Dr. Pimentel on OP basis. (9) DVT prophylaxis Current visit: Yes Status: Acute Lovenox 40 mg 0600 for DVT prophylaxis. Monitor pt. for signs of bleeding. Internal Medicine - H&P: HPI Chief complaint: Abdominal pain Admitted From: Emergency Dept Plans for Post Hospital Care: Home History of present illness: Ms. Carpenter is a 51 year old female with medical hx of diabetes controlled with oral antihyperglycemic medications, GERD, aortic aneurysm, HLD, HTN, and IBSD presents to ED with chief complaint lower abdominal pain that began 2 days ago and patient describes his abdominal tightness. Patient also describes area sinus potato around her umbilicus which is tender to palpation. Pt. states that she makes stool and passes gas w/o problem. Reports diarrhea d/t IBSD and some nausea w/sx but denies recent illness, vomiting, fever, chills, hematuria, hematochezia, melena, chest pain, shortness of breath, palpitations, changes in vision, headache, cough, numbness, tingling, dizziness, lightheadedness, pre- syncope, or syncope. Past Med Surg Social Fam HX - Past Medical History Source: patient, old records reviewed, obtained from family Medical history: aortic aneurysm, diabetes, GERD, hyperlipidemia, hypertension, other Psychiatric history: anxiety, depression - Past Surgical History Surgical History: appendectomy, cholecystectomy, other (Left knee scope) - Social History Smoking Status: Never smoker Smokeless Tobacco Status: No Alcohol use: none Drug use: none Current living situation: Home, With Family Activity Level: Independent ambulation Recent Out of Country Travel Within the Last 8 Weeks: No Exposure or Possible Exposure to Illness During Travel: No - Family History Father Living Status: Age at : 76 Cause of : Sepsis Hx Family Cardiac Disorders: Yes (CAD, HTN) Hx Family Endocrine Disorder: Yes (Diabetes Mellitus) Brother Race: Family Member Ethnicity: Non- Living Status: Age at : 54 Cause of : Liver cancer, bone cancer Hx Family Cancer: Yes (Liver cancer, bone cancer) Daughter Race: Family Member Ethnicity: Non- Living Status: Still Living Hx Family Cardiac Disorders: Yes (Heart arrhythmia) Son Race: Family Member Ethnicity: Non- Living Status: Still Living Hx Family Musculoskeletal Disorders: Yes (DDD) Mother Race: Family Member Ethnicity: Non- Living Status: Still Living Hx Family Cardiac Disorders: Yes (HTN) Hx Family Cancer: Yes (Breast cancer (40's)) Hx Family GI Disorders: Yes (Colon pre-cancerous polyps) Hx Family Endocrine Disorder: Yes (DM) Sister Race: Family Member Ethnicity: Non- Living Status: Still Living Hx Family Cardiac Disorders: Yes (HTN) Hx Family Endocrine Disorder: Yes (DM) Internal Medicine - H&P: Meds Lisinopril [Zestril] 20 mg PO DAILY 11/09/14 [History] Metformin [Glucophage] 1,000 mg PO BIDWM 11/09/14 [History] Metoprolol [Lopressor] 25 mg PO BID 11/09/14 [History] Aripiprazole [Abilify] 2.5 mg PO DAILY 02/21/17 [History] Aspirin [Lo-Dose Aspirin EC] 81 mg PO DAILY 02/21/17 [History] Atorvastatin [Lipitor] 40 mg PO HS 02/21/17 [History] Canagliflozin [Invokana] 300 mg PO DAILY 02/21/17 [History] DULoxetine [Cymbalta] 90 mg PO DAILY 02/21/17 [History] Exenatide Microspheres [Bydureon Pen] 2 mg SQ QWEEK 02/21/17 [History] HYDROcodone/Acet 5/325 mg [[place] 5-325 mg] 1 tab PO Q8H 02/21/17 [History] Norethindrone-E.estradiol-Iron [Lo Loestrin Fe 1-10 Tablet] 1 tab PO DAILY 02/21 [History] Nye-3 Acid Ethyl Esters [Lovaza] 1 gm PO DAILY 02/21/17 [History] Omeprazole [PriLOSEC] 20 mg PO DAILY 02/21/17 [History] Triamterene/Hydrochlorothiazid [Dyazide 37.5-25 Capsule] 1 cap PO DAILY [History] 3 Allergy/AdvReac Type Severity Reaction Status Date / Time meloxicam Allergy Hives Verified 02/21/17 12:11 metoclopramide [From Reglan] Allergy Hives Verified 02/21/17 12:11 morphine Allergy Fever Verified 02/21/17 12:11 ondansetron Allergy Hives Verified 02/21/17 12:11 [From Zofran (as hydrochloride)] All Systems PM: A 10-system review of systems was performed and is negative for pertinent findings except as documented above in the HPI. - Constitutional Constitutional: no chills, no fever(s), no night sweats - EENT Eyes: no change in vision, no discharge, no pain, no photophobia Ears: no ear discharge, no ear pain, no tinnitus Nose, mouth and throat: no dysphagia, no nasal discharge, no neck pain, no sore throat - Breasts Breasts: as per HPI - Cardiovascular Cardiovascular ROS IM: no chest pain, no diaphoresis, no dyspnea, no lightheadedness, no palpitations, no syncope - Respiratory Respiratory: no cough, no dyspnea, no wheezing, no excessive phlegm production - Gastrointestinal Gastrointestinal: as per HPI, abdominal pain, diarrhea, nausea - Genitourinary Genitourinary: no change in urinary stream, no dysuria, no flank pain, no hematuria Menstruation: as per HPI - Musculoskeletal Musculoskeletal ROS IM: no numbness, no tingling - Integumentary Integumentary IM: no rash, no unusual bruising - Neurological Neurological ROS: no confusion, no convulsions, no focal weakness, no numbness, no tingling, no tremor(s) - Psychiatric Psychiatric: as per HPI - Endocrine Endocrine IM: as per HPI - Hematologic/Lymphatic Hematologic/Lymphatic: no easy bruising - Allergic/Immunologic Allergic/Immunologic: as per HPI - Constitutional Vitals: Temp Pulse Resp BP Pulse Ox 99.2 F 86 16 113/70 94 02/21/17 16:59 02/21/17 16:59 02/21/17 16:59 02/21/17 16:59 02/21/17 16:59 General appearance: Present: cooperative, A&O X 3, pleasant, no acute distress, answers questions appropriately - Head Head exam: Present: atraumatic, normal inspection, normocephalic - Eye Eye exam: Present: PERRL, conjuntiva pink, sclera anicteric Pupils: Present: PERRL - ENT ENT exam: Present: normal exam, normal external ear exam - Neck Neck exam general surgery: Present: normal inspection, supple, trachea midline. Absent: lymphadenopathy - Respiratory Respiratory exam: Present: CTAB. Absent: accessory muscle use, rales, rhonchi, wheezes - Cardiovascular Cardiovascular exam: Present: RRR, +S1, +S2. Absent: diastolic murmur, gallop, rubs, systolic murmur - GI/Abdominal GI/Abdominal exam: Present: guarding, normal bowel sounds, soft, tenderness, no peritoneal signs. Absent: distended - Rectal Rectal exam: Present: deferred - Additional comments: exam deferred. - Extremities Exam Extremities exam: Present: warm, radial pulses palpable and symmetrical. Absent : calf tenderness, cyanotic, pedal edema - Back Exam Back exam: Present: normal inspection - Neurological Exam Neurological exam: Present: CN II-XII intact, oriented X3, no focal deficits. Absent: pronater drift, facial droop, speech deficit - Psychiatric Psychiatric exam: Present: normal affect, normal mood - Skin Skin exam: Present: dry, intact Internal Med - H&P Results - Labs CBC & Chem 7: 02/21/17 12:40 02/21/17 12:40 - Diagnostic Studies CT scan - abdomen Additional comments: Impressions Abdomen/Pelvis CT 02/21/17 12:15 IMPRESSION: 1. No acute findings identified in the abdomen and pelvis. 2. 4.7 cm cystic lesion in the left adnexa. Consider ovarian cyst or less likely, cystic ovarian neoplasm in the differential. Further assessment with dedicated pelvic ultrasound may be helpful. D/ / Nate Humphries MD / Nate Humphries MD Interpreting Provider: Nate Humphries MD <Víctor Nayak T - Last Filed: 02/22/17 07:45> Date of Encounter: 02/22/17 Internal Medicine - H&P: HPI History of present illness: Ms. Carpenter is a 51 year old female All Systems PM: A 10-system review of systems was performed and is negative for pertinent findings except as documented above in the HPI. - Constitutional Vitals: Temp Pulse Resp BP Pulse Ox 98.0 F 89 18 112/71 94 02/22/17 04:30 02/22/17 04:30 02/22/17 04:30 02/22/17 04:30 02/22/17 04:30 Internal Med - H&P Results - Labs CBC & Chem 7: 02/22/17 07:00 02/22/17 07:00 Labs: Short CBC 02/22/17 Range/Units 07:00 WBC 6.6 (4.3-11.1) K/mcL Hgb 12.7 (11.5-15.4) g/dL Hct 41.2 (35.3-44.9) % Plt Count 226 (140-400) K/mcL Neutrophils # 3.5 (1.6-8.9) K/mcL BMP 02/22/17 07:00 Sodium 136 Potassium 4.4 Chloride 104 Carbon Dioxide 21 BUN 13 Creatinine 0.65 Glucose 115 H Calcium 8.4 L Liver Function 02/22/17 Range/Units 07:00 Total Bilirubin 0.3 (0.2-1.2) mg/dL AST 28 (5-34) Units/L ALT 18 (0-55) Units/L Alkaline Phosphatase 78 (38-126) Units/L Albumin 2.8 L (3.5-5.0) g/dL - Impressions ITS Impressions Abdomen/Pelvis/Transvag US 02/21/17 19:00 IMPRESSION: Unilocular left ovarian cyst measuring 4.0 cm maximally. The lesion is most certainly benign. Given the patient is postmenopausal, a 1 year follow-up study is recommended to ensure stability. Otherwise unremarkable pelvic ultrasound. Nonvisualization of the right ovary. D/ / 02/21/2017 19:53:12 Reed Wesley MD / kaycee Interpreting Provider: Reed Wesley MD - Attending Attestation Encounter was on 02/21 See my event note on same day for details
[2017-02-21] MEDS: 0.9 % Sodium Chloride 1,000 ML IVC SCH (20:37)
[2017-02-21] MEDS: *HR* HYDROcodone/Acet 5/325 mg TABLET PO PRN (20:38)
[2017-02-21] MEDS: *HR* Promethazine 25 MG/ML VIAL IVP PRN (20:39)
[2017-02-21] MEDS: Insulin LISPRO 300 UNITS/3 ML VIAL SQ SCH (20:49)
[2017-02-21] MEDS: *HR* HYDROmorphone (PF) 1 MG/ML SYRINGE IVP PRN (23:45)
[2017-02-22] MEDS: *HR* Enoxaparin 40 MG/0.4 ML SYRINGE SQ SCH (02:43)
[2017-02-22] MEDS: *HR* Promethazine 25 MG/ML VIAL IVP PRN ×3 (03:56→21:17)
[2017-02-22] MEDS: 0.9 % Sodium Chloride 1,000 ML IVC SCH ×2 (04:02→23:30)
[2017-02-22] MEDS: *HR* HYDROmorphone (PF) 1 MG/ML SYRINGE IVP PRN ×4 (04:05→23:30)
[2017-02-22 07:08] LABS: Hematocrit 41.2 % (35.3-44.9); Hemoglobin 12.7 g/dL (11.5-15.4); Mean Corpuscular HGB Conc 30.8 g/dL (31.6-35.5); Mean Corpuscular Hemoglobin 27.4 pg (28.0-33.3); Mean Corpuscular Volume 88.8 fL (83.0-100.0); Mean Platelet Volume 9.3 fL (9.4-12.4); Platelet Count 226 K/mcL (140-400); Red Blood Count 4.64 M/mcL (3.82-4.97); Red Cell Distribution Width 14.7 % (11.5-14.5); Segmented Neutrophils % 53.1 %
[2017-02-22 07:09] LABS: Basophils % 0.5 %; Eosinophils # 0.1 K/mcL (0.0-0.6); Eosinophils % 2.1 %; Immature Granulocytes % 0.5 % (0-4); Lymphocytes # 2.4 K/mcL (0.6-4.6); Monocytes # 0.5 K/mcL (0.0-1.3); Monocytes % 6.8 %; Neutrophils # 3.5 K/mcL (1.6-8.9)
[2017-02-22 07:24] LABS: Alanine Aminotransferase 18 Units/L (0-55); Albumin 2.8 g/dL (3.5-5.0); Albumin/Globulin Ratio 0.8 (1.1-2.2); Alkaline Phosphatase 78 Units/L (38-126); Aspartate Amino Transferase 28 Units/L (5-34); BUN/Creatinine Ratio 20 (6-26); Bilirubin,Total 0.3 mg/dL (0.2-1.2); Blood Urea Nitrogen 13 mg/dL (7-20); Calcium 8.4 mg/dL (8.6-10.8); Carbon Dioxide 21 mEq/L (19-29); Chloride 104 mEq/L (98-109); Chol/HDL Ratio 7.5 (0-4.9); Cholesterol 286 mg/dL (< 200); Globulin 3.6 g/dL (2.4-3.5); Glucose 115 mg/dL (70-99); HDL Cholesterol 38 mg/dL (40-59); Magnesium 1.3 mg/dL (1.6-2.6); Osmolality,Calculated 283 (280-300); Potassium 4.4 mEq/L (3.5-4.5); Total Protein 6.4 g/dL (6.0-8.3); Triglycerides 737 mg/dL (< 150); eGFR For African Americans > 60 (> 60); eGFR For Non-African Americans > 60 (> 60)
[2017-02-22 07:31] LABS: Sodium 136 mEq/L (136-145)
[2017-02-22] MEDS: Insulin LISPRO 300 UNITS/3 ML VIAL SQ SCH ×4 (07:35→21:18)
[2017-02-22] MEDS: (Canagliflozin [Invokana] 300 MG) PO SCH (09:47)
[2017-02-22] MEDS: Aspirin Enteric Coated 81 MG Tablet PO SCH (09:47)
[2017-02-22] MEDS: ARIPiprazole 5 MG TABLET PO SCH (09:47)
[2017-02-22] MEDS: Lisinopril 20 MG TABLET PO SCH (09:47)
[2017-02-22] MEDS: (Omega-3 Acid Ethyl Esters [Lovaza] 1 GM) PO SCH (09:48)
[2017-02-22] MEDS: NORETHINDRONE E ESTRADIOL IRON PO SCH (09:48)
--- NOTE | 2017-02-22 09:51 | Internal Med Progress Note ---
Date of Encounter: 02/22/17 Time of Encounter: 09:46 - Assessment and plan (1) Lactic acidosis Current Visit: Yes Status: Resolved Assessment and plan: Resolved, lactate is WNL this morning Possibly due to fat necrosis vs MEtformin use Continue IVF at 100c/hr (2) Abdominal pain Current Visit: Yes Status: Acute Assessment and plan: Possibly due to fat necrosis, her pain is supraumbilical, her umbilicus is inverted No inflammatory causes on CT amylase, lipase WNL Continue to monitor Continue pain control Clears only, as tolerated Surgery evaluation from 02/21 is noted , pending today. Qualifiers: Abdominal location: periumbilical Qualified Code(s): R10.33 - Periumbilical pain (3) Cyst of left ovary Current Visit: Yes Status: Acute Assessment and plan: Benign per USS. For repeat imaging in one year, patient is educated, follow up with own [facility] as out-patient (4) Diabetes Current Visit: Yes Status: Chronic Assessment and plan: A1C 7.4 Continue SSI FA q6h till patient is tolerating po Continue home meds, except Metformin Qualifiers: Diabetes mellitus type: type 2 Diabetes mellitus complication status: with unspecified complications Diabetes mellitus intermediate teacher insulin use: without skilled nursing use Qualified Code(s): E11.8 - Type 2 diabetes mellitus with unspecified complications (5) HTN (hypertension) Current Visit: Yes Status: Chronic Assessment and plan: Controlled, continue current meds Qualifiers: Hypertension type: essential hypertension Qualified Code(s): I10 - Essential (primary) hypertension (6) HLD (hyperlipidemia) Current Visit: Yes Status: Chronic Assessment and plan: Uncontrolled, with hypertriglyceridemia on labs this morning, continue atorvastatin Qualifiers: Hyperlipidemia type: pure hypercholesterolemia Qualified Code(s): E78.00 - Pure hypercholesterolemia, unspecified; E78.0 - Pure hypercholesterolemia (7) DVT prophylaxis Current Visit: Yes Status: Acute Assessment and plan: Heparin SQ (8) GERD (gastroesophageal reflux disease) Current Visit: Yes Status: Chronic Assessment and plan: Continue home meds Qualifiers: Esophagitis presence: esophagitis presence not specified Qualified Code(s) : K21.9 - Gastro-esophageal reflux disease without esophagitis (9) Thoracic aortic aneurysm without rupture Current Visit: Yes Status: Chronic Assessment and plan: Follow up with Dr. Pimentel as out-patient - Subjective Interval history: Seen and examined at bedside 51 F DM on Metformin, admitted to observation for abdominal pain and lactic acidosis Patient has no n/v, she has no undue diarrhea, as she has Irritable bowel syndrome-diarrhea type, she says her BM is at her normal She had a BM this morning, no fever or chills Work up with Abd CT unremarkable for colitis/enteritis/ileitis Left ovarian cyst found on CT, showed on Tranvaginal USS to be likely benign, with recommendations to follow up with repeat imaging in one year Patient's abdomen is not acute, she still has some tenderness in her maine- umbilical region as well as some nickel sized thickening to the left of her umbilicus. I do not believe she needs any antibiotics at this time Surgery consult 02/21/17 appreciated, no current indication for OR today per their evaluation on 02/21. Evaluation today is pending at my time of eval Her labs are WNL this morning and her lactic acidosis is resolved We will start on clears only as tolerated - Constitutional Vitals: Temp Pulse Resp BP Pulse Ox 98.1 F 93 16 116/79 96 02/22/17 07:57 02/22/17 07:57 02/22/17 07:57 02/22/17 07:57 02/22/17 07:57 General appearance: Present: cooperative, A&O X 3, pleasant, no acute distress, obese, answers questions appropriately - Head Head exam: Present: atraumatic, normocephalic - Eye Eye exam: Present: PERRL, conjuntiva pink, sclera anicteric Pupils: Present: PERRL - Neck Neck exam general surgery: Present: supple, trachea midline. Absent: lymphadenopathy - Respiratory Respiratory exam: Present: CTAB. Absent: accessory muscle use, rales, rhonchi, wheezes - Cardiovascular Cardiovascular exam: Present: RRR, +S1, +S2. Absent: diastolic murmur, gallop, rubs, systolic murmur - GI/Abdominal GI/Abdominal exam: Present: normal bowel sounds, soft, tenderness (vague supraumbilical tenderness, worse on supraumbilical and left region. no palpable masses. ), no peritoneal signs. Absent: distended - Extremities Exam Extremities exam: Present: warm, radial pulses palpable and symmetrical. Absent : calf tenderness, cyanotic, pedal edema - Neurological Exam Neurological exam: Present: alert, CN II-XII intact, oriented X3, no focal deficits. Absent: pronater drift, facial droop, speech deficit - Skin Skin exam: Present: dry, intact Internal Medicine: Result - Labs CBC & Chem 7: 02/22/17 07:00 02/22/17 07:00 Labs: Short CBC 02/22/17 Range/Units 07:00 WBC 6.6 (4.3-11.1) K/mcL Hgb 12.7 (11.5-15.4) g/dL Hct 41.2 (35.3-44.9) % Plt Count 226 (140-400) K/mcL Neutrophils # 3.5 (1.6-8.9) K/mcL BMP 02/22/17 07:00 Sodium 136 Potassium 4.4 Chloride 104 Carbon Dioxide 21 BUN 13 Creatinine 0.65 Glucose 115 H Calcium 8.4 L Liver Function 02/22/17 Range/Units 07:00 Total Bilirubin 0.3 (0.2-1.2) mg/dL AST 28 (5-34) Units/L ALT 18 (0-55) Units/L Alkaline Phosphatase 78 (38-126) Units/L Albumin 2.8 L (3.5-5.0) g/dL - Impressions Impressions Abdomen/Pelvis/Transvag US 02/21/17 19:00 IMPRESSION: Unilocular left ovarian cyst measuring 4.0 cm maximally. The lesion is most certainly benign. Given the patient is postmenopausal, a 1 year follow-up study is recommended to ensure stability. Otherwise unremarkable pelvic ultrasound. Nonvisualization of the right ovary. D/ / 02/21/2017 19:53:12 Reed Wesley MD / kaycee Interpreting Provider: Reed Wesley MD Consult Discharge Plan - Plan Referrals: Marbin Ruvalcaba MD [Primary Care Provider] -
[2017-02-22] MEDS: *HR* HYDROcodone/Acet 5/325 mg TABLET PO PRN ×2 (11:17→21:16)
--- NOTE | 2017-02-22 11:43 | General Surgery Progress Note ---
<Letitia Camarillo - Last Filed: 02/22/17 12:48> Date of Encounter: 02/22/17 Time of Encounter: 11:00 - Assessment and Plan (1) Umbilical hernia Current Visit: Yes Status: Acute No acute inflammatory changes noted on CT scan Supportive care and pain control Empiric IV antibiotics- Zosyn (discontinued per the hospitalist) Serial abdominal exams IV fluids- saline lock now, restart fluids at midnight Diabetic diet NPO after midnight Plan for umbilical hernia repair with Dr. Shahid in the next 24-48 hours Qualifiers: Obstruction and gangrene presence: without obstruction or gangrene Qualified Code(s): K42.9 - Umbilical hernia without obstruction or gangrene (2) Lactic acidosis Current Visit: Yes Status: Acute Resolved- 2.6>2.2 (3) Hyperlipidemia Current Visit: Yes Status: Chronic Qualifiers: Hyperlipidemia type: unspecified Qualified Code(s): E78.5 - Hyperlipidemia , unspecified (4) Obesity (BMI 30-39.9) Current Visit: Yes Status: Chronic (5) Thoracic aortic aneurysm Current Visit: Yes Status: Chronic Followed per Dr. Pimentel as outpatient Qualifiers: Presence of rupture: without rupture Qualified Code(s): I71.2 - Thoracic aortic aneurysm, without rupture (6) Adnexal mass Current Visit: Yes Status: Acute Unilocular left ovarian cyst measuring 4.0 cm maximally. The lesion is most certainly benign. Given the patient is postmenopausal, a 1 year follow-up study is recommended to ensure stability. Outpatient follow-up with STOCK SAW OPERATOR (scheduled to see her STOCK SAW OPERATOR on 03/10/17) (7) History of hypertension Current Visit: No Status: Chronic Currently normotensive Management per hospitalist (8) Non-insulin dependent type 2 diabetes mellitus Current Visit: No Status: Chronic BS- improved today Management per hospitalist Subjective Patient reports: no new complaints, still having pain (unchanged), voiding w/o difficulty, flatus, afebrile Objective Vital Signs - Last 8 Hours Temp Pulse Resp BP Pulse Ox 02/22/17 07:57 98.1 F 93 16 116/79 96 02/22/17 04:30 98.0 F 89 18 112/71 94 Intake and Output 02/21/17 02/22/17 02/22/17 23:59 07:59 15:59 Intake Total 1120 / 1120 1000 / 1000 Output Total 600 / 600 Balance 1120 / 1120 400 / 400 Intake: IV Fluids 1000 / 1000 0.9 % Sodium Chloride 1,000 ML 1000 / 1000 @ 100 mls/hr IVC .Q10H CHAY Rx#: [id number] Oral 1120 / 1120 0 / 0 Output: Urine 600 / 600 Other: Stool Consistency liquid # Bowel Movements 2 Blood Glucose* 131 121 147 - General physical appearance well developed, well nourished, moderate pain - Eyes normal ocular movement - ENT normal mucosa, atraumatic, normocephalic - Neck Neck exam: trachea midline - Respiratory normal respiratory effort, clear to auscultation - Cardiovascular Cardiovascular exam: Present: RRR - Abdomen Abdomen: Present: bowel sounds present, soft, tender (perumbilical) - Neurologic CN 2-12 grossly intact - Psychiatric oriented to time, oriented to person, oriented to place, speech is normal, memory intact - Labs 02/22/17 07:00 02/22/17 07:00 Diabetes panel 02/22/17 Range/Units 07:00 Sodium 136 (136-145) mEq/L Potassium 4.4 (3.5-4.5) mEq/L Chloride 104 (98-109) mEq/L Carbon Dioxide 21 (19-29) mEq/L BUN 13 (7-20) mg/dL Creatinine 0.65 (0.57-1.11) mg/dL Glucose 115 H (70-99) mg/dL Calcium 8.4 L (8.6-10.8) mg/dL AST 28 (5-34) Units/L ALT 18 (0-55) Units/L Alkaline Phosphatase 78 (38-126) Units/L Albumin 2.8 L (3.5-5.0) g/dL Triglycerides 737 H (< 150) mg/dL HDL Cholesterol 38 L (40-59) mg/dL Calcium panel 02/22/17 Range/Units 07:00 Calcium 8.4 L (8.6-10.8) mg/dL Albumin 2.8 L (3.5-5.0) g/dL Pituitary panel 02/22/17 Range/Units 07:00 Sodium 136 (136-145) mEq/L Potassium 4.4 (3.5-4.5) mEq/L Chloride 104 (98-109) mEq/L Carbon Dioxide 21 (19-29) mEq/L BUN 13 (7-20) mg/dL Creatinine 0.65 (0.57-1.11) mg/dL Glucose 115 H (70-99) mg/dL Calcium 8.4 L (8.6-10.8) mg/dL Adrenal panel 02/22/17 Range/Units 07:00 Sodium 136 (136-145) mEq/L Potassium 4.4 (3.5-4.5) mEq/L Chloride 104 (98-109) mEq/L Carbon Dioxide 21 (19-29) mEq/L BUN 13 (7-20) mg/dL Creatinine 0.65 (0.57-1.11) mg/dL Glucose 115 H (70-99) mg/dL Calcium 8.4 L (8.6-10.8) mg/dL Total Bilirubin 0.3 (0.2-1.2) mg/dL AST 28 (5-34) Units/L ALT 18 (0-55) Units/L Alkaline Phosphatase 78 (38-126) Units/L Albumin 2.8 L (3.5-5.0) g/dL Consult Discharge Plan - Plan Referrals: Marbin Ruvalcaba MD [Primary Care Provider] - - Attending Attestation For this encounter, I have reviewed the FLYING TEACHER or PA documentation, treatment plan, and medical decision making; and I have had face to face time with this patient. <Brittnee Shahid - Last Filed: 02/23/17 12:09> Date of Encounter: 02/22/17 - Assessment and Plan (1) Incarcerated umbilical hernia Current Visit: Yes Status: Chronic discussed with patient that her symptoms are not improving and she has an incarcerated umbilical hernia, will plan open repair with likely primary closure (CT scan viewed by myself and defect is very small), possible mesh, risks and benefit discussed and she wishes to proceed ok for diet today, npo midnight pain medication prn OOB ambulate as able to tolerate Subjective Patient reports: no new complaints, still having pain, tolerating liquids well, voiding w/o difficulty, flatus Objective Vital Signs - Last 8 Hours Temp Pulse Resp BP Pulse Ox 02/23/17 08:00 97.6 F 87 16 106/71 95 02/23/17 04:40 98.5 F 88 15 104/68 96 Intake and Output 02/22/17 02/23/17 02/23/17 23:59 07:59 15:59 Intake Total 50 / 50 0 / 0 0 / 0 Output Total 0 / 0 300 / 300 Balance 50 / 50 0 / 0 -300 / -300 Intake: IV Fluids 50 / 50 Magnesium Sulfate Premix 2gm/ 50 / 50 50mL 2 gm In 50 ml @ 48.077 mls /hr IVPB ONCE ONE Rx#: [id number] Oral 0 / 0 0 / 0 Output: Urine 0 / 0 300 / 300 Other: Meal NPO Weight 106.5 kg Blood Glucose* 174 145 137 Patient Weight 02/23/17 23:59 Weight 106.5 kg - General physical appearance well developed, well nourished, moderate pain, obese - Eyes normal ocular movement - ENT normal mucosa, normocephalic - Respiratory normal expansion, normal respiratory effort - Cardiovascular Cardiovascular exam: Present: RRR - Abdomen Abdomen: Present: bowel sounds present, soft, tender - Integumentary no growths - Neurologic CN 2-12 grossly intact - Musculoskeletal normal posture - Psychiatric oriented to time, oriented to person, speech is normal, memory intact - Labs 02/23/17 04:15 02/23/17 04:15 Diabetes panel 02/23/17 Range/Units 04:15 Sodium 136 (136-145) mEq/L Potassium 4.4 (3.5-4.5) mEq/L Chloride 103 (98-109) mEq/L Carbon Dioxide 23 (19-29) mEq/L BUN 13 (7-20) mg/dL Creatinine 0.71 (0.57-1.11) mg/dL Glucose 159 H (70-99) mg/dL Calcium 9.4 (8.6-10.8) mg/dL AST 15 (5-34) Units/L ALT 17 (0-55) Units/L Alkaline Phosphatase 77 (38-126) Units/L Albumin 2.9 L (3.5-5.0) g/dL Calcium panel 02/23/17 Range/Units 04:15 Calcium 9.4 (8.6-10.8) mg/dL Albumin 2.9 L (3.5-5.0) g/dL Pituitary panel 02/23/17 Range/Units 04:15 Sodium 136 (136-145) mEq/L Potassium 4.4 (3.5-4.5) mEq/L Chloride 103 (98-109) mEq/L Carbon Dioxide 23 (19-29) mEq/L BUN 13 (7-20) mg/dL Creatinine 0.71 (0.57-1.11) mg/dL Glucose 159 H (70-99) mg/dL Calcium 9.4 (8.6-10.8) mg/dL Adrenal panel 02/23/17 Range/Units 04:15 Sodium 136 (136-145) mEq/L Potassium 4.4 (3.5-4.5) mEq/L Chloride 103 (98-109) mEq/L Carbon Dioxide 23 (19-29) mEq/L BUN 13 (7-20) mg/dL Creatinine 0.71 (0.57-1.11) mg/dL Glucose 159 H (70-99) mg/dL Calcium 9.4 (8.6-10.8) mg/dL Total Bilirubin 0.2 (0.2-1.2) mg/dL AST 15 (5-34) Units/L ALT 17 (0-55) Units/L Alkaline Phosphatase 77 (38-126) Units/L Albumin 2.9 L (3.5-5.0) g/dL - Attending Attestation I have personally performed a face to face evaluation on this patient. I have reviewed and agree with the care plan. History and Exam by me shows:
[2017-02-22] MEDS ORDERED: 0.9 % Sodium Chloride 1,000 ML IVC SCH (11:45)
[2017-02-23 04:51] LABS: Alanine Aminotransferase 17 Units/L (0-55); Albumin 2.9 g/dL (3.5-5.0); Albumin/Globulin Ratio 0.8 (1.1-2.2); Alkaline Phosphatase 77 Units/L (38-126); Aspartate Amino Transferase 15 Units/L (5-34); BUN/Creatinine Ratio 18 (6-26); Bilirubin,Total 0.2 mg/dL (0.2-1.2); Blood Urea Nitrogen 13 mg/dL (7-20); Calcium 9.4 mg/dL (8.6-10.8); Carbon Dioxide 23 mEq/L (19-29); Chloride 103 mEq/L (98-109); Globulin 3.6 g/dL (2.4-3.5); Glucose 159 mg/dL (70-99); Osmolality,Calculated 285 (280-300); Potassium 4.4 mEq/L (3.5-4.5); Sodium 136 mEq/L (136-145); Total Protein 6.5 g/dL (6.0-8.3); eGFR For African Americans > 60 (> 60); eGFR For Non-African Americans > 60 (> 60)
[2017-02-23 05:06] LABS: Basophils # 0.1 K/mcL (0.0-0.2); Basophils % 0.7 %; Eosinophils # 0.1 K/mcL (0.0-0.6); Eosinophils % 1.8 %; Hematocrit 41.8 % (35.3-44.9); Hemoglobin 12.9 g/dL (11.5-15.4); Immature Granulocytes % 0.6 % (0-4); Lymphocytes # 2.4 K/mcL (0.6-4.6); Lymphocytes % 34.6 %; Mean Corpuscular HGB Conc 30.9 g/dL (31.6-35.5); Mean Corpuscular Hemoglobin 27.9 pg (28.0-33.3); Mean Corpuscular Volume 90.3 fL (83.0-100.0); Mean Platelet Volume 9.5 fL (9.4-12.4); Monocytes # 0.5 K/mcL (0.0-1.3); Monocytes % 7.5 %; Neutrophils # 3.7 K/mcL (1.6-8.9); Platelet Count 210 K/mcL (140-400); Red Blood Count 4.63 M/mcL (3.82-4.97); Red Cell Distribution Width 14.7 % (11.5-14.5); Segmented Neutrophils % 54.8 %
[2017-02-23] MEDS: *HR* Promethazine 25 MG/ML VIAL IVP PRN ×3 (05:40→20:15)
[2017-02-23] MEDS: *HR* HYDROmorphone (PF) 1 MG/ML SYRINGE IVP PRN ×3 (05:40→14:05)
[2017-02-23] MEDS: *HR* Enoxaparin 40 MG/0.4 ML SYRINGE SQ SCH (05:47)
[2017-02-23] MEDS: Insulin LISPRO 300 UNITS/3 ML VIAL SQ SCH ×2 (07:00→12:00)
--- NOTE | 2017-02-23 08:51 | Internal Med Progress Note ---
Date of Encounter: 02/23/17 Time of Encounter: 08:49 - Assessment and plan (1) Lactic acidosis Current Visit: Yes Status: Resolved Assessment and plan: Resolved, lactate is WNL this morning Possibly due to fat necrosis vs MEtformin use Continue IVF till post-op (2) Abdominal pain Current Visit: Yes Status: Acute Assessment and plan: Possibly due to fat necrosis, her pain is supraumbilical, her umbilicus is inverted No inflammatory causes on CT amylase, lipase WNL Continue to monitor Continue pain control PEr surgery, for umbilical hernai repair today, Qualifiers: Abdominal location: periumbilical Qualified Code(s): R10.33 - Periumbilical pain (3) Cyst of left ovary Current Visit: Yes Status: Acute Assessment and plan: Benign per USS. For repeat imaging in one year, patient is educated, follow up with own MANAGER OF DEVELOPMENT as out-patient, sha has an upcoming appointment with her MANAGER OF DEVELOPMENT She also has a hx of PCOS (4) Diabetes Current Visit: Yes Status: Chronic Assessment and plan: A1C 7.4 Continue SSI FA q6h till patient is tolerating po Continue home meds, except Metformin Qualifiers: Diabetes mellitus type: type 2 Diabetes mellitus complication status: with unspecified complications Diabetes mellitus prison insulin use: without prison use Qualified Code(s): E11.8 - Type 2 diabetes mellitus with unspecified complications (5) HTN (hypertension) Current Visit: Yes Status: Chronic Assessment and plan: Controlled, continue current meds Qualifiers: Hypertension type: essential hypertension Qualified Code(s): I10 - Essential (primary) hypertension (6) HLD (hyperlipidemia) Current Visit: Yes Status: Chronic Assessment and plan: Uncontrolled, with hypertriglyceridemia on labs this morning, continue atorvastatin Qualifiers: Hyperlipidemia type: pure hypercholesterolemia Qualified Code(s): E78.00 - Pure hypercholesterolemia, unspecified; E78.0 - Pure hypercholesterolemia (7) DVT prophylaxis Current Visit: Yes Status: Acute Assessment and plan: Heparin SQ (8) GERD (gastroesophageal reflux disease) Current Visit: Yes Status: Chronic Assessment and plan: Continue home meds Qualifiers: Esophagitis presence: esophagitis presence not specified Qualified Code(s) : K21.9 - Gastro-esophageal reflux disease without esophagitis (9) Thoracic aortic aneurysm without rupture Current Visit: Yes Status: Chronic Assessment and plan: Follow up with Dr. Pimentel as out-patient - Subjective Interval history: Seen and examined at bedside 51 F DM on Metformin, admitted to observation for abdominal pain and lactic acidosis Patient has no n/v, she has no undue diarrhea, as she has Irritable bowel syndrome-diarrhea type, she says her BM is at her normal She had a BM this morning, no fever or chills Work up on admission with Abd CT unremarkable for colitis/enteritis/ileitis Left ovarian cyst found on CT, showed on Tranvaginal USS to be likely benign, with recommendations to follow up with repeat imaging in one year Patient's abdomen is not acute, she still has some tenderness in her maine- umbilical region as well as some nickel sized thickening to the left of her umbilicus. She is hemodynamically stable, labs are WNL, Figersticks are WNL for a controlled diabetic she is awaiting surgery for this afternoon She has no new complains - Constitutional Vitals: Temp Pulse Resp BP Pulse Ox 97.6 F 87 16 106/71 95 02/23/17 08:00 02/23/17 08:00 02/23/17 08:00 02/23/17 08:00 02/23/17 08:00 General appearance: Present: cooperative, A&O X 3, pleasant, no acute distress, obese, answers questions appropriately - Head Head exam: Present: atraumatic, normocephalic - Eye Eye exam: Present: PERRL, conjuntiva pink, sclera anicteric Pupils: Present: PERRL - Neck Neck exam general surgery: Present: supple, trachea midline. Absent: lymphadenopathy - Respiratory Respiratory exam: Present: CTAB. Absent: accessory muscle use, rales, rhonchi, wheezes - Cardiovascular Cardiovascular exam: Present: RRR, +S1, +S2. Absent: diastolic murmur, gallop, rubs, systolic murmur - GI/Abdominal GI/Abdominal exam: Present: normal bowel sounds, soft, tenderness (mild periumbilical, umbilicus is inverted, no guarding, abdomen is soft, BS is present), no peritoneal signs. Absent: distended - Extremities Exam Extremities exam: Present: warm, radial pulses palpable and symmetrical. Absent : calf tenderness, cyanotic, pedal edema - Neurological Exam Neurological exam: Present: alert, CN II-XII intact, oriented X3, no focal deficits. Absent: pronater drift, facial droop, speech deficit - Skin Skin exam: Present: dry, intact Internal Medicine: Result - Labs CBC & Chem 7: 02/23/17 04:15 02/23/17 04:15 Labs: Short CBC 02/23/17 Range/Units 04:15 WBC 6.8 (4.3-11.1) K/mcL Hgb 12.9 (11.5-15.4) g/dL Hct 41.8 (35.3-44.9) % Plt Count 210 (140-400) K/mcL Neutrophils # 3.7 (1.6-8.9) K/mcL BMP 02/23/17 04:15 Sodium 136 Potassium 4.4 Chloride 103 Carbon Dioxide 23 BUN 13 Creatinine 0.71 Glucose 159 H Calcium 9.4 Liver Function 02/23/17 Range/Units 04:15 Total Bilirubin 0.2 (0.2-1.2) mg/dL AST 15 (5-34) Units/L ALT 17 (0-55) Units/L Alkaline Phosphatase 77 (38-126) Units/L Albumin 2.9 L (3.5-5.0) g/dL - Impressions Impressions Abdomen/Pelvis/Transvag US 02/21/17 19:00 IMPRESSION: Unilocular left ovarian cyst measuring 4.0 cm maximally. The lesion is most certainly benign. Given the patient is postmenopausal, a 1 year follow-up study is recommended to ensure stability. Otherwise unremarkable pelvic ultrasound. Nonvisualization of the right ovary. D/ / 02/21/2017 19:53:12 Reed Wesley MD / [email or web address] Interpreting Provider: Reed Wesley MD Consult Discharge Plan - Plan Referrals: Marbin Ruvalcaba MD [Primary Care Provider] -
[2017-02-23] MEDS: Lisinopril 20 MG TABLET PO SCH (09:36)
[2017-02-23] MEDS: Aspirin Enteric Coated 81 MG Tablet PO SCH (09:36)
[2017-02-23] MEDS: ARIPiprazole 5 MG TABLET PO SCH (09:36)
[2017-02-23] MEDS: (Omega-3 Acid Ethyl Esters [Lovaza] 1 GM) PO SCH (09:38)
[2017-02-23] MEDS: NORETHINDRONE E ESTRADIOL IRON PO SCH (09:38)
[2017-02-23] MEDS: (Canagliflozin [Invokana] 300 MG) PO SCH (09:42)
[2017-02-23] MEDS: 0.9 % Sodium Chloride 1,000 ML IVC SCH (14:06)
--- NOTE | 2017-02-23 15:07 | Anesthesia Evaluation PreOp ---
Date of Encounter: 02/23/17 Time of Encounter: 15:04 - Past History Planned Operation: umbilical hernia repair Cardiac History: HTN, Other (stable small thoracic aneurysm. Followed by Dr. Pimentel) Pulmonary History: Snore, KEVIN Dx (By history, no formal sleep study, no CPAP) CORPORATE MANAGER History: Denies Any Significant HX Other Medical History: Diabetes Type II, GERD Anesthesia History: No Prior Anesthetic Complications, Past Anesthesia Alcohol Use: none Drug use: none Medications and Allergies Lisinopril [Zestril] 20 mg PO DAILY 11/09/14 [History] Metformin [Glucophage] 1,000 mg PO BIDWM 11/09/14 [History] Metoprolol [Lopressor] 25 mg PO BID 11/09/14 [History] Aripiprazole [Abilify] 2.5 mg PO DAILY 02/21/17 [History] Aspirin [Lo-Dose Aspirin EC] 81 mg PO DAILY 02/21/17 [History] Atorvastatin [Lipitor] 40 mg PO HS 02/21/17 [History] Canagliflozin [Invokana] 300 mg PO DAILY 02/21/17 [History] DULoxetine [Cymbalta] 90 mg PO DAILY 02/21/17 [History] Exenatide Microspheres [Bydureon Pen] 2 mg SQ QWEEK 02/21/17 [History] HYDROcodone/Acet 5/325 mg [[place] 5-325 mg] 1 tab PO Q8H 02/21/17 [History] Norethindrone-E.estradiol-Iron [Lo Loestrin Fe 1-10 Tablet] 1 tab PO DAILY 02/21 [History] Chamberlain-3 Acid Ethyl Esters [Lovaza] 1 gm PO DAILY 02/21/17 [History] Omeprazole [PriLOSEC] 20 mg PO DAILY 02/21/17 [History] Triamterene/Hydrochlorothiazid [Dyazide 37.5-25 Capsule] 1 cap PO DAILY [History] 3 Allergy/AdvReac Type Severity Reaction Status Date / Time meloxicam Allergy Hives Verified 02/21/17 12:11 metoclopramide [From Reglan] Allergy Hives Verified 02/21/17 12:11 morphine Allergy Fever Verified 02/21/17 12:11 ondansetron Allergy Hives Verified 02/21/17 12:11 [From Zofran (as hydrochloride)] - Meds/Allergy Pre-op Review Medications Reviewed: Yes Allergies Reviewed: Yes Beta Blockers on Current Med List: Yes (last dose 0914) Anesthesia Results - Labs 02/23/17 04:15 02/23/17 04:15 Anesthesia Exam Selected Entries 02/23/17 12:25 Temperature 99 F Pulse Rate 85 Respiratory Rate 16 Blood Pressure 108/73 O2 Sat by Pulse Oximetry 94 Weight: 106 kg NPO (# of Hours): over 8 hours - HEENT Pupil (Motor): Pupils equal Mallampati: III Teeth: Normal Oral Opening: Less than or equal to 3 - Cardiac Rhythm: Regular Murmur: None - Pulmonary Breath Sounds: bilateral Clear Respiratory Effort: Symmetrical Anesthesia Assess/Plan ASA Score: 3 Modified Maida Scale for Level of Consciousness: Cooperative, oriented, and tranquil Anesthetic Plan: General Monitoring Plan: Standard Monitors Recovery Plan: PACU
[2017-02-23] MEDS ORDERED: *HR* Midazolam HCl 2 MG/2 ML VIAL ONE (16:18)
[2017-02-23] MEDS ORDERED: Neostigmine Methylsulfate 3 MG/3 ML SYRINGE ONE (16:18)
[2017-02-23] MEDS ORDERED: Ondansetron 4 MG/2 ML VIAL ONE (16:18)
[2017-02-23] MEDS ORDERED: Dexamethasone 4 MG/ML VIAL ONE ×2 (16:18→16:58)
[2017-02-23] MEDS ORDERED: Lidocaine -MPF 4% 5 ML AMPUL ONE (16:18)
[2017-02-23] MEDS ORDERED: *HR* FentaNYL (PF) 100 MCG/2 ML VIAL ONE (16:18)
[2017-02-23] MEDS ORDERED: *HR* Succinylcholine 200 MG/10 ML VIAL IVP ONE (16:18)
[2017-02-23] MEDS ORDERED: Lidocaine -MPF 2% 2 ML VIAL ONE (16:18)
[2017-02-23] MEDS ORDERED: *HR* Rocuronium Bromide 50 MG/5 ML VIAL ONE (16:18)
[2017-02-23] MEDS ORDERED: *HR* Propofol 200 MG/20 ML VIAL IVP ONE ×2 (16:18→16:51)
[2017-02-23] MEDS ORDERED: CeFAZolin Premix DUPLEX 2,000 MG/50 ML BAG IVPB ONE (16:22)
[2017-02-23] MEDS ORDERED: *HR* HYDROmorphone (PF) 1 MG/ML SYRINGE IVP PRN ×2 (17:13→18:56)
[2017-02-23] MEDS ORDERED: *HR* Promethazine 25 MG/ML VIAL IVP PRN (17:13)
[2017-02-23] MEDS ORDERED: EPHEDrine 50 MG/ML VIAL ONE (17:27)
[2017-02-23] MEDS ORDERED: *HR* HYDROmorphone 2 MG/ML SYRINGE ONE (17:33)
--- NOTE | 2017-02-23 17:42 | Operative Note ---
Date of procedure: 02/23/17 Pre-op diagnosis: incarcerated umbilical hernia Post-op diagnosis: same Procedure: Open primary repair of incarcerated umbilical hernia Anesthesia: GETA, local Local Anesthetics: 0.5% Sensorcaine HCL SubQ (cc) (30) Surgeon: Brittnee Shahid Estimated blood loss (cc): 3 Specimen: hernia sac Condition: stable Disposition: PACU Procedure in Detail: Patient was brought to the operating suite and placed supine on the operating table. Sign in was performed and everyone was in agreement. Anesthesia was induced and patient was endotracheally intubated by anesthesia without incident. The abdomen was prepped and draped in the usual sterile fashion. Timeout was performed again everyone was in agreement. An infraumbilical semicircular incision through the skin and the subcutaneous tissues made with a 15 blade. We dissected through the subcutaneous tissue to the anterior abdominal wall fascia as well as the umbilical hernia with the Bovie. The hernia sac was opened with the Bovie and clear sterile fluid resulted. The hernia sac was amputated at the level of the fascia with the Bovie. Any bleeding points were stopped with the Bovie. The subcutaneous fat surrounding the hernia defect was cleared for an area of approximately 1 cm circumferentially. The hernia defect was closed primarily with 3 separate 0 Nurolon [id number] stitches. The wound was copiously irrigated with sterile saline. The umbilicus was tacked back down to the fascia with a 3-0 Vicryl [id number]-he-aiiwi stitch. The subcutaneous tissue was reapproximated with 3-0 Vicryl interrupted stitches. The skin was closed with a 4-0 Monocryl running subcuticular stitch. Steri-Strips were applied to the wound. 2 x 2 gauze was placed in the umbilicus as well as 4 x 4 gauze and Medipore tape applied as a dressing. Patient tolerated the procedure well and all lap and instrument counts were correct at the end of the case. Patient was awoken by anesthesia and extubated in the OR without incident. She was taken to PACU in stable condition.
[2017-02-23] MEDS ORDERED: Dextrose Gel 15 GM PO PRN ×2 (18:56)
[2017-02-23] MEDS ORDERED: D5% in Water 1,000 ML IVC PRN (18:56)
[2017-02-23] MEDS ORDERED: Naloxone 0.4 MG/ML INJ IVP PRN (18:56)
[2017-02-23] MEDS ORDERED: 0.9 % Sodium Chloride 1,000 ML IVC SCH (18:56)
[2017-02-23] MEDS ORDERED: *HR* Dextrose 50 % in Water (Syg) 50 ML SYRINGE IVP PRN (18:56)
[2017-02-23] MEDS: *HR* OxyCODONE/APAP 5/325 TABLET PO PRN (20:23)
[2017-02-23] MEDS ORDERED: Insulin LISPRO 300 UNITS/3 ML VIAL SQ SCH (21:00)
[2017-02-24] MEDS: *HR* OxyCODONE/APAP 5/325 TABLET PO PRN ×3 (00:20→09:21)
[2017-02-24] MEDS: *HR* Promethazine 25 MG/ML VIAL IVP PRN ×2 (02:15→09:25)
[2017-02-24 05:40] LABS: Basophils % 0.2 %; Hematocrit 39.1 % (35.3-44.9); Hemoglobin 12.1 g/dL (11.5-15.4); Immature Granulocytes % 0.4 % (0-4); Lymphocytes # 1.3 K/mcL (0.6-4.6); Lymphocytes % 14.7 %; Mean Corpuscular HGB Conc 30.9 g/dL (31.6-35.5); Mean Corpuscular Hemoglobin 27.2 pg (28.0-33.3); Mean Corpuscular Volume 87.9 fL (83.0-100.0); Mean Platelet Volume 9.7 fL (9.4-12.4); Monocytes # 0.5 K/mcL (0.0-1.3); Monocytes % 5.5 %; Neutrophils # 7.2 K/mcL (1.6-8.9); Platelet Count 255 K/mcL (140-400); Red Blood Count 4.45 M/mcL (3.82-4.97); Red Cell Distribution Width 14.6 % (11.5-14.5); Segmented Neutrophils % 79.2 %
[2017-02-24] MEDS ORDERED: *HR* Enoxaparin 40 MG/0.4 ML SYRINGE SQ SCH (06:00)
[2017-02-24 06:09] LABS: Alanine Aminotransferase 21 Units/L (0-55); Albumin 2.9 g/dL (3.5-5.0); Albumin/Globulin Ratio 0.8 (1.1-2.2); Alkaline Phosphatase 113 Units/L (38-126); Aspartate Amino Transferase 27 Units/L (5-34); BUN/Creatinine Ratio 16 (6-26); Bilirubin,Total 0.3 mg/dL (0.2-1.2); Blood Urea Nitrogen 13 mg/dL (7-20); Carbon Dioxide 19 mEq/L (19-29); Chloride 102 mEq/L (98-109); Globulin 3.7 g/dL (2.4-3.5); Glucose 233 mg/dL (70-99); Osmolality,Calculated 288 (280-300); Potassium 4.4 mEq/L (3.5-4.5); Sodium 135 mEq/L (136-145); Total Protein 6.6 g/dL (6.0-8.3); eGFR For African Americans > 60 (> 60); eGFR For Non-African Americans > 60 (> 60)
[2017-02-24 06:35] VITALS: BP 99/64
[2017-02-24] MEDS ORDERED: Insulin LISPRO 300 UNITS/3 ML VIAL SQ SCH (07:30)
[2017-02-24] MEDS ORDERED: (Omega-3 Acid Ethyl Esters [Lovaza] 1 GM) PO SCH (09:00)
[2017-02-24] MEDS ORDERED: (Canagliflozin [Invokana] 300 MG) PO SCH (09:00)
[2017-02-24] MEDS ORDERED: NORETHINDRONE E ESTRADIOL IRON PO SCH (09:00)
[2017-02-24] MEDS ORDERED: Aspirin Enteric Coated 81 MG Tablet PO SCH (09:00)
[2017-02-24] MEDS ORDERED: Lisinopril 20 MG TABLET PO SCH (09:00)
[2017-02-24] MEDS ORDERED: ARIPiprazole 5 MG TABLET PO SCH (09:00)
--- NOTE | 2017-02-24 09:50 | General Surgery Progress Note ---
Date of Encounter: 02/24/17 Time of Encounter: 09:30 - Assessment and Plan (1) Umbilical hernia Current Visit: Yes Status: Acute POD #1 Open primary repair of incarcerated umbilical hernia with Dr. Shahid Diabetic diet Supportive care and pain control Ambulate hallways TID May discharge from a surgical standpoint when medically ready See surgical discharge instructions F/U in the outpatient surgical office as scheduled Qualifiers: Obstruction and gangrene presence: without obstruction or gangrene Qualified Code(s): K42.9 - Umbilical hernia without obstruction or gangrene (2) Lactic acidosis Current Visit: Yes Status: Resolved Resolved- 2.6>2.2 (3) Hyperlipidemia Current Visit: Yes Status: Chronic Qualifiers: Hyperlipidemia type: unspecified Qualified Code(s): E78.5 - Hyperlipidemia , unspecified (4) Obesity (BMI 30-39.9) Current Visit: Yes Status: Chronic (5) Thoracic aortic aneurysm Current Visit: Yes Status: Chronic Followed per Dr. Pimentel as outpatient Qualifiers: Presence of rupture: without rupture Qualified Code(s): I71.2 - Thoracic aortic aneurysm, without rupture (6) Adnexal mass Current Visit: Yes Status: Acute Unilocular left ovarian cyst measuring 4.0 cm maximally. The lesion is most certainly benign. Given the patient is postmenopausal, a 1 year follow-up study is recommended to ensure stability. Outpatient follow-up with TOOL DESIGNER (scheduled to see her TOOL DESIGNER on 03/10/17) (7) History of hypertension Current Visit: No Status: Chronic Currently normotensive Management per hospitalist (8) Non-insulin dependent type 2 diabetes mellitus Current Visit: No Status: Chronic Management per hospitalist Subjective Patient reports: no new complaints, feels better, still having pain (Expected postsurgical pain), tolerating a regular diet, voiding w/o difficulty, flatus, bowel movement, afebrile Objective Vital Signs - Last 8 Hours Temp Pulse Resp BP Pulse Ox 02/24/17 06:34 98.0 F 88 16 99/64 94 02/24/17 04:46 98.8 F 93 18 144/63 94 Intake and Output 02/23/17 02/24/17 02/24/17 23:59 07:59 15:59 Intake Total 50 / 50 0 / 0 240 / 240 Output Total 3 / 3 500 / 500 Balance 47 / 47 -500 / -500 240 / 240 Intake: IV Fluids 50 / 50 Ancef Premix DUPLEX 2,000 mg In 50 / 50 50 ml @ 100 mls/hr IVPB ONCE ONE Rx#:[id number] Oral 0 / 0 240 / 240 Output: Urine 500 / 500 Estimated Blood Loss Other: Meal NPO Breakfast Percent of Meal Consumed 100% Blood Glucose* 176 175 - General physical appearance well developed, well nourished, no distress - Eyes normal ocular movement - ENT normal mucosa, atraumatic, normocephalic - Neck Neck exam: trachea midline - Respiratory normal respiratory effort, clear to auscultation - Cardiovascular Cardiovascular exam: Present: RRR - Abdomen Abdomen: Present: bowel sounds present, soft, tender (Expected postoperative tenderness) - Incision Incision: Present: clean and dry, intact - Neurologic CN 2-12 grossly intact - Psychiatric oriented to time, oriented to person, oriented to place, speech is normal, memory intact - Labs 02/24/17 04:32 02/24/17 04:32 Diabetes panel 02/24/17 Range/Units 04:32 Sodium 135 L (136-145) mEq/L Potassium 4.4 (3.5-4.5) mEq/L Chloride 102 (98-109) mEq/L Carbon Dioxide 19 (19-29) mEq/L BUN 13 (7-20) mg/dL Creatinine 0.79 (0.57-1.11) mg/dL Glucose 233 H (70-99) mg/dL Calcium 9.0 (8.6-10.8) mg/dL AST 27 (5-34) Units/L ALT 21 (0-55) Units/L Alkaline Phosphatase 113 (38-126) Units/L Albumin 2.9 L (3.5-5.0) g/dL Calcium panel 02/24/17 Range/Units 04:32 Calcium 9.0 (8.6-10.8) mg/dL Albumin 2.9 L (3.5-5.0) g/dL Pituitary panel 02/24/17 Range/Units 04:32 Sodium 135 L (136-145) mEq/L Potassium 4.4 (3.5-4.5) mEq/L Chloride 102 (98-109) mEq/L Carbon Dioxide 19 (19-29) mEq/L BUN 13 (7-20) mg/dL Creatinine 0.79 (0.57-1.11) mg/dL Glucose 233 H (70-99) mg/dL Calcium 9.0 (8.6-10.8) mg/dL Adrenal panel 02/24/17 Range/Units 04:32 Sodium 135 L (136-145) mEq/L Potassium 4.4 (3.5-4.5) mEq/L Chloride 102 (98-109) mEq/L Carbon Dioxide 19 (19-29) mEq/L BUN 13 (7-20) mg/dL Creatinine 0.79 (0.57-1.11) mg/dL Glucose 233 H (70-99) mg/dL Calcium 9.0 (8.6-10.8) mg/dL Total Bilirubin 0.3 (0.2-1.2) mg/dL AST 27 (5-34) Units/L ALT 21 (0-55) Units/L Alkaline Phosphatase 113 (38-126) Units/L Albumin 2.9 L (3.5-5.0) g/dL - VTE Documentation of Mechanical Device: Intermittent pneumatic compression device Consult Discharge Plan - Plan Additional Instructions: #1 may shower 02/24/17, no tub bath for 2 weeks #2 wash incisions with soap and water and pat dry daily; apply 2X2 to umbilical region and tape to secure daily after shower. #3 no lifting, pushing, pulling more than 15 pounds for the next 2 weeks #4 no driving until off narcotics for 24 hours and able to safely react in the car #5 may climb stairs Referrals: Marbin Ruvalcaba MD [Primary Care Provider] - Letitia Camarillo CNP [Advanced Practice Nurse] - 03/09/17 9:15 am (Surgery follow-up) Meliza Snyder CNP [Advanced Practice Nurse] - (TOOL DESIGNER follow-up as previously scheduled) Prescriptions: OxyCODONE/APAP 5/325 [Percocet 5/325 MG] 1 each PO Q4HR PRN #30 tablet PRN Reason: Pain Promethazine [Phenergan] 25 mg PO Q8HR PRN #30 tablet PRN Reason: Nausea Docusate [Colace] 100 mg PO BID #30 capsule - Attending Attestation For this encounter, I have reviewed the CUPBOARD BUILDER or PA documentation, treatment plan, and medical decision making; and I have had face to face time with this patient.
--- NOTE | 2017-02-24 10:12 | Discharge Summary ---
Date of Encounter: 02/24/17 Time of Encounter: 10:09 - Discharge Diagnosis (1) Lactic acidosis Priority: Primary Status: Resolved (2) Abdominal pain Priority: Primary Status: Resolved Qualifiers: Abdominal location: periumbilical Qualified Code(s): R10.33 - Periumbilical pain (3) Cyst of left ovary Priority: Secondary Status: Chronic (4) Diabetes Priority: Secondary Status: Chronic Qualifiers: Diabetes mellitus type: type 2 Diabetes mellitus complication status: with unspecified complications Diabetes mellitus assisted insulin use: without intermediate manager use Qualified Code(s): E11.8 - Type 2 diabetes mellitus with unspecified complications (5) HTN (hypertension) Priority: Secondary Status: Chronic Qualifiers: Hypertension type: essential hypertension Qualified Code(s): I10 - Essential (primary) hypertension (6) HLD (hyperlipidemia) Priority: Secondary Status: Chronic Qualifiers: Hyperlipidemia type: pure hypercholesterolemia Qualified Code(s): E78.00 - Pure hypercholesterolemia, unspecified; E78.0 - Pure hypercholesterolemia (7) DVT prophylaxis Priority: Primary Status: Acute (8) GERD (gastroesophageal reflux disease) Priority: Secondary Status: Chronic Qualifiers: Esophagitis presence: esophagitis presence not specified Qualified Code(s) : K21.9 - Gastro-esophageal reflux disease without esophagitis (9) Thoracic aortic aneurysm without rupture Priority: Secondary Status: Chronic - Discharge Medications Home Medications: Lisinopril [Zestril] 20 mg PO DAILY 11/09/14 [History] Metformin [Glucophage] 1,000 mg PO BIDWM 11/09/14 [History] Metoprolol [Lopressor] 25 mg PO BID 11/09/14 [History] Aripiprazole [Abilify] 2.5 mg PO DAILY 02/21/17 [History] Aspirin [Lo-Dose Aspirin EC] 81 mg PO DAILY 02/21/17 [History] Atorvastatin [Lipitor] 40 mg PO HS 02/21/17 [History] Canagliflozin [Invokana] 300 mg PO DAILY 02/21/17 [History] DULoxetine [Cymbalta] 90 mg PO DAILY 02/21/17 [History] Exenatide Microspheres [Bydureon Pen] 2 mg SQ QWEEK 02/21/17 [History] Norethindrone-E.estradiol-Iron [Lo Loestrin Fe 1-10 Tablet] 1 tab PO DAILY 02/21 [History] [place]-3 Acid Ethyl Esters [Lovaza] 1 gm PO DAILY 02/21/17 [History] Omeprazole [PriLOSEC] 20 mg PO DAILY 02/21/17 [History] Triamterene/Hydrochlorothiazid [Dyazide 37.5-25 Capsule] 1 cap PO DAILY [History] Docusate [Colace] 100 mg PO BID #30 capsule 02/24/17 [Rx] OxyCODONE/APAP 5/325 [Percocet 5/325 MG] 1 each PO Q4HR PRN #30 tablet 02/24/17 [Rx] Promethazine [Phenergan] 25 mg PO Q8HR PRN #30 tablet 02/24/17 [Rx] Allergies/Adverse Reactions: 3 Allergy/AdvReac Type Severity Reaction Status Date / Time meloxicam Allergy Hives Verified 02/21/17 12:11 metoclopramide [From Reglan] Allergy Hives Verified 02/21/17 12:11 morphine Allergy Fever Verified 02/21/17 12:11 ondansetron Allergy Hives Verified 02/21/17 12:11 [From Zofran (as hydrochloride)] Procedures/tests Complete & Pending: Procedures Performed prior 72 hours Category Date Time Status US pelvis transvag dopp non ob [US] Stat Exams 02/21/17 19:00 Completed Date of admission: 02/21/17 15:28 Primary care physician: Marbin Ruvalcaba MD Consults: 02/22/17 12:23 Consult to Invasive Line Access Team [CONS] Routine Reason for Consult: poor access Line Type: EPIV Discharging clinician: Víctor Nayak Anticipated date of discharge: 02/24/17 - Patient Status Disposition: Home, Self-Care Condition: Good Functional capacity at discharge: independent ambulation Overall status at discharge: patient is progressing back to baseline - Discharge Instructions Instructions: Umbilical Hernia (DC) Follow Up With: Meliza Snyder CNP [Advanced Practice Nurse] - (PHYSICAL THERAPY TECHNICIAN follow-up as previously scheduled) Letitia Camarillo CNP [Advanced Practice Nurse] - 03/09/17 9:15 am (Surgery follow-up) Marbin Ruvalcaba MD [Primary Care Provider] - Additional Instructions: #1 may shower 02/24/17, no tub bath for 2 weeks #2 wash incisions with soap and water and pat dry daily; apply 2X2 to umbilical region and tape to secure daily after shower. #3 no lifting, pushing, pulling more than 15 pounds for the next 2 weeks #4 no driving until off narcotics for 24 hours and able to safely react in the car #5 may climb stairs - Diet and Activity Activity: resume usual activities as tolerated Diet: diabetic diet, low fat, low cholesterol, low salt diet Interval History: See below Hospital course: Ms. Carpenter is a 51 year old female was admitted to the hospital to observation following a complaint of severe periumbilical abdominal pain. She has a past medical history of diabetes mellitus controlled, A1c of 7.4. She also has a past medical history of hypertension, hyperlipidemia, and GERD. Thoracic aortic aneurysm without rupture. Workup revealed lactic acidosis and An incidental finding of a benign left ovarian cyst. Patient has a history of polycystic ovarian syndrome and is following up routinely with her firefighting equipment specialist. Patient had a iumbilical hernia repair, today is postoperative day 1. She is seen and evaluated at the bedside, she is able to tolerate a diet and she is ambulatory. She denies new complaints. She is stable to be discharged home. Presenting lactic acidosis has resolved. Plan of care discussed with patient, who verbalized understanding. Follow-up with surgery, follow up with primary care physician, firefighting equipment specialist. - Time Spent with Patient Total time spent providing and/or coordinating discharge services: Less than 30 minutes - Constitutional Vitals: Temp Pulse Resp BP Pulse Ox 98.0 F 88 16 99/64 94 02/24/17 06:34 02/24/17 06:34 02/24/17 06:34 02/24/17 06:34 02/24/17 06:34 General appearance: Present: cooperative, A&O X 3, pleasant, no acute distress, obese, answers questions appropriately - Head Head exam: Present: atraumatic, normocephalic - Eye Eye exam: Present: PERRL, conjuntiva pink, sclera anicteric Pupils: Present: PERRL - Neck Neck exam general surgery: Present: supple, trachea midline. Absent: lymphadenopathy - Respiratory Respiratory exam: Present: CTAB. Absent: accessory muscle use, rales, rhonchi, wheezes - Cardiovascular Cardiovascular exam: Present: RRR, +S1, +S2. Absent: diastolic murmur, gallop, rubs, systolic murmur - GI/Abdominal GI/Abdominal exam: Present: normal bowel sounds, soft, no peritoneal signs. Absent: distended, tenderness Additional comments: Periumbilical dressing is clean and dry. - Extremities Exam Extremities exam: Present: warm, radial pulses palpable and symmetrical. Absent : calf tenderness, cyanotic, pedal edema - Neurological Exam Neurological exam: Present: alert, CN II-XII intact, oriented X3, no focal deficits. Absent: pronater drift, facial droop, speech deficit - Skin Skin exam: Present: dry, intact - VTE Documentation of Mechanical Device: Intermittent pneumatic compression device
== END 2017-02-24 11:00 | disposition home or self-care (01) | DRG 354 ==
LOC: 3ANU 11:59 → EMEROO 11:59 → SUATTDRO 15:28 → 3ANU 16:01
PROVIDERS: ADMIT Internal Medicine; ATTEND Internal Medicine

== ENCOUNTER 2017-08-13 15:13 | Observation (INO) ==
[2017-08-13] MEDS ORDERED: Isovue-370 500 ML INFUS..BTL IV ONE (15:21)
[2017-08-13] MEDS ORDERED: Aspirin 81 MG TAB.CHEW PO ONE (15:56)
[2017-08-13] MEDS ORDERED: Nitroglycerin 0.4 MG TAB.SUBL SL PRN (16:04)
--- NOTE | 2017-08-13 16:11 | Emergency Department Note ---
Disposition Clinical Impression: Chest pain Qualifiers: Chest pain type: other chest pain Qualified Code(s): R07.89 - Other chest pain Disposition: Admitted As Inpatient Condition: Good General Adult HPI - General Chief complaint: ED Chest Pain Stated complaint: Chest pain Source: patient Nursing Notes Reviewed: Yes Vital Signs Reviewed: Yes - History of Present Illness HPI Narrative: 51-year-old female past medical history of type 2 diabetes mellitus, thoracic aortic aneurysm, hypertension, hyperlipidemia, myocardial infarction in both mother and father, presents emergency Department with 1 day of chest pain. Patient states that at 4 AM today, and she starts piercing some chest pressure on the left side of her chest, reported being very tight, reported having a sensation of the room is spinning with it as well as having numbness and paresthesias of her fingers of both upper extremities. Patient states it is intermittent in nature, but has occurred multiple times in the last 12 hours. Patient came because it started getting worse. Patient also associates diaphoresis and nausea with her symptoms as well. Patient does also report increasing weight loss medication 3 days ago as well and does not know if this could be contributing to it. Patient has not had aspirin today. Pain Scale: 9 - Related Data Home Medications Medication Instructions Recorded Confirmed Lisinopril [Zestril] 20 mg PO DAILY 11/09/14 02/21/17 Metformin [Glucophage] 1,000 mg PO BIDWM 11/09/14 02/21/17 Metoprolol [Lopressor] 25 mg PO BID 11/09/14 02/21/17 Aripiprazole [Abilify] 2.5 mg PO DAILY 02/21/17 02/21/17 Aspirin [Lo-Dose Aspirin EC] 81 mg PO DAILY 02/21/17 02/21/17 Atorvastatin [Lipitor] 40 mg PO HS 02/21/17 02/21/17 Canagliflozin [Invokana] 300 mg PO DAILY 02/21/17 02/21/17 DULoxetine [Cymbalta] 90 mg PO DAILY 02/21/17 02/21/17 Exenatide Microspheres [Bydureon 2 mg SQ QWEEK 02/21/17 02/21/17 Pen] Norethindrone-E.estradiol-Iron [Lo 1 tab PO DAILY 02/21/17 02/21/17 Loestrin Fe 1-10 Tablet] [place]-3 Acid Ethyl Esters [Lovaza] 1 gm PO DAILY 02/21/17 02/21/17 Omeprazole [PriLOSEC] 20 mg PO DAILY 02/21/17 02/21/17 Triamterene/Hydrochlorothiazid 1 cap PO DAILY 02/21/17 02/21/17 [Dyazide 37.5-25 Capsule] Previous Rx's Medication Instructions Recorded Docusate [Colace] 100 mg PO BID #30 capsule 02/24/17 OxyCODONE/APAP 5/325 [Percocet 1 each PO Q4HR PRN #30 tablet 02/24/17 5/325 MG] Promethazine [Phenergan] 25 mg PO Q8HR PRN #30 tablet 02/24/17 Allergies Allergy/AdvReac Type Severity Reaction Status Date / Time meloxicam Allergy Hives Verified 08/13/17 15:20 metoclopramide [From Reglan] Allergy Hives Verified 08/13/17 15:20 morphine Allergy Fever Verified 08/13/17 15:20 ondansetron Allergy Hives Verified 08/13/17 15:20 [From Zofran (as hydrochloride)] All systems ED: reviewed and negative except as stated. Review of Systems: As Per HPI Constitutional: Denies: fever Cardiovascular: Reports: chest pain Respiratory: Denies: cough, dyspnea, wheezes Gastrointestinal: Reports: nausea. 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 Absent: scleral icterus - ENT ENT exam: normal exam, normal oropharynx - Neck Neck exam: Present: trachea midline. Absent: tenderness, meningismus - Chest Chest inspection: Present: symmetric chest wall rise - Respiratory Respiratory exam: Present: normal lung sounds bilaterally. Absent: respiratory distress, accessory muscle use - Cardiovascular Cardiovascular exam: Present: regular rate, normal rhythm, normal heart sounds - Abdominal Exam Abdominal exam: Present: soft, Non-Tender. Absent: distention, guarding, rebound - Back Exam Back exam: Present: full ROM - Neurological Exam Neurological exam: Present: alert, oriented X3, CN II-XII intact, other (GCS 15) - Psychiatric Psychiatric exam: Present: normal affect, normal mood - Skin Skin exam: Present: warm, dry, intact, normal color Course Vital Signs Temperature 98.7 F 08/13/17 15:15 Pulse Rate 86 08/13/17 15:15 Respiratory Rate 20 08/13/17 15:15 Blood Pressure 127/80 08/13/17 15:15 O2 Sat by Pulse Oximetry 96 08/13/17 15:15 Temperature 98.7 F 08/13/17 15:18 Pulse Rate 92 08/13/17 16:21 Respiratory Rate 16 08/13/17 16:21 Blood Pressure 101/65 08/13/17 16:21 O2 Sat by Pulse Oximetry 96 08/13/17 16:21 Oxygen Delivery Oxygen Delivery Room Air Medical Decision Making - [facility] Narrative Medical decision making narrative: 51-year-old female presents to the emergency department with concern for chest pain, dizziness, numbness and paresthesias over the last 12 hours. At this time , we are concerned for acute coronary syndrome as well as stable instability with patient's thoracic aortic aneurysm. Electrocardiogram is obtained as I reveal any evidence of ischemia or Taylor- Parkinson's White, Brugada syndrome, hypertrophic cardiomyopathy. Chest x-ray does not reveal any new changes We are also obtaining CTA of the chest. Patient will be given sublingual nitroglycerin to see if this helps with her symptoms. She is also going to be given Phenergan for her nausea. Patient was given 325 mg chewable aspirin. Nitroglycerin did not help her chest pain. Patient was given 50 g of fentanyl IV and this took care of the chest pain. Phenergan helped with her nausea. Chest CTA did not reveal any evidence of pulmonary embolus or issues with the thoracic aortic aneurysm. Troponin was within normal limits. Patient has normal creatinine function as well. Electrolytes are normal. Patient admitted to the hospitalist for further evaluation and observation for patient's chest pain. Patient hemodynamically stable and not in acute distress at time of admission. Patient and agree with plan. Chest X-Ray 08/13/17 15:19 IMPRESSION: Stable portable study. D/ / Maria Luz Sinha Cha, MD / Maria Luz Sinha Cha, MD Interpreting Provider: Maria Luz Sinha Cha, MD Chest CTA 08/13/17 17:30 IMPRESSION: No evidence of pulmonary embolism or acute pulmonary abnormality. D/ / Chase Meneses MD / Chase Meneses MD Interpreting Provider: Chase Meneses MD Chest X-Ray 08/13/17 15:19 IMPRESSION: Stable portable study. D/ / Maria Luz Sinha Cha, MD / Maria Luz Sinha Cha, MD Interpreting Provider: Maria Luz Sinha Cha, MD - Lab Data Result diagrams: 08/13/17 16:03 08/13/17 16:03 Lab Results 08/13/17 08/13/17 08/13/17 Range/Units 16:03 16:03 16:03 WBC 8.0 (4.3-11.1) K/mcL RBC 4.68 (3.82-4.97) M/mcL Hgb 13.1 (11.5-15.4) g/dL Hct 40.6 (35.3-44.9) % MCV 86.8 (83.0-100.0) fL MCH 28.0 (28.0-33.3) pg MCHC 32.3 (31.6-35.5) g/dL RDW 15.0 H (11.5-14.5) % Plt Count 296 (140-400) K/mcL MPV 9.7 (9.4-12.4) fL Immature Gran % 0.4 (0-4) % Seg Neutrophils % 65.4 % Lymphocytes % 25.6 % Monocytes % 7.0 % Eosinophils % 1.1 % Basophils % 0.5 % Neutrophils # 5.2 (1.6-8.9) K/mcL Lymphocytes # 2.0 (0.6-4.6) K/mcL Monocytes # 0.6 (0.0-1.3) K/mcL Eosinophils # 0.1 (0.0-0.6) K/mcL Basophils # 0.0 (0.0-0.2) K/mcL Immature Plt Fraction 2.5 (1.1-6.1) % Sodium 135 L (136-145) mEq/L Potassium 4.5 (3.5-5.1) mEq/L Chloride 101 (98-107) mEq/L Carbon Dioxide 20 L (23-29) mEq/L BUN 23 H (6-20) mg/dL Creatinine 0.80 (0.60-1.20) mg/dL Est GFR ( Amer) > 60 (> 60) Est GFR (Non-Af Amer) > 60 (> 60) BUN/Creatinine Ratio 29 H (6-26) Glucose 122 H (70-105) mg/dL Calculated Osmolality 285 (280-300) Calcium 9.5 (8.6-10.3) mg/dL Troponin I < 0.03 (< 0.04) ng/mL B-Natriuretic Peptide 9 (Less than 100) pg/mL - EKG Data EKG #1 EKG attestation: Yes I reviewed and interpreted this EKG. EKG results narrative: 15:19 Ventricular rate 83 bpm, LA interval 149 ms, QRS duration 89 ms, QT 366 ms, QTC 406 ms, normal axis. Sinus rhythm with a ventricular rate of 82 bpm. There is no evidence of any ischemic ST changes noted on this electrocardiogram. No evidence of Leighann- Parkinson-White syndrome, hypertrophic cardiomyopathy, Brugada syndrome, or any other arrhythmia. This EKG was done in comparison with the previous one obtained on 05/27/2014
[2017-08-13] MEDS ORDERED: Nitroglycerin 0.4 MG TAB.SUBL SL ONE (16:14)
[2017-08-13 16:29] LABS: Basophils % 0.5 %; Eosinophils # 0.1 K/mcL (0.0-0.6); Eosinophils % 1.1 %; Hematocrit 40.6 % (35.3-44.9); Hemoglobin 13.1 g/dL (11.5-15.4); Immature Granulocytes % 0.4 % (0-4); Immature Platelets 2.5 % (1.1-6.1); Lymphocytes % 25.6 %; Mean Corpuscular HGB Conc 32.3 g/dL (31.6-35.5); Mean Corpuscular Volume 86.8 fL (83.0-100.0); Mean Platelet Volume 9.7 fL (9.4-12.4); Monocytes # 0.6 K/mcL (0.0-1.3); Neutrophils # 5.2 K/mcL (1.6-8.9); Platelet Count 296 K/mcL (140-400); Red Blood Count 4.68 M/mcL (3.82-4.97); Segmented Neutrophils % 65.4 %
[2017-08-13 16:36] LABS: BUN/Creatinine Ratio 29 (6-26); Blood Urea Nitrogen 23 mg/dL (6-20); Calcium 9.5 mg/dL (8.6-10.3); Carbon Dioxide 20 mEq/L (23-29); Chloride 101 mEq/L (98-107); Glucose 122 mg/dL (70-105); Osmolality,Calculated 285 (280-300); Potassium 4.5 mEq/L (3.5-5.1); Sodium 135 mEq/L (136-145); eGFR For African Americans > 60 (> 60); eGFR For Non-African Americans > 60 (> 60)
[2017-08-13 16:37] LABS: Troponin I < 0.03 ng/mL (< 0.04)
[2017-08-13] MEDS ORDERED: *HR* FentaNYL (PF) 100 MCG/2 ML VIAL IVP ONE (16:41)
--- NOTE | 2017-08-13 18:35 | Emergency Department Note ---
Disposition Clinical Impression: Chest pain Qualifiers: Chest pain type: other chest pain Qualified Code(s): R07.89 - Other chest pain Disposition: Admitted As Inpatient Condition: Good General Adult HPI - General Chief complaint: ED Chest Pain Stated complaint: Chest pain Source: patient - History of Present Illness Pain Scale: 9 - Related Data Home Medications Medication Instructions Recorded Confirmed Lisinopril [Zestril] 20 mg PO DAILY 11/09/14 02/21/17 Metformin [Glucophage] 1,000 mg PO BIDWM 11/09/14 02/21/17 Metoprolol [Lopressor] 25 mg PO BID 11/09/14 02/21/17 Aripiprazole [Abilify] 2.5 mg PO DAILY 02/21/17 02/21/17 Aspirin [Lo-Dose Aspirin EC] 81 mg PO DAILY 02/21/17 02/21/17 Atorvastatin [Lipitor] 40 mg PO HS 02/21/17 02/21/17 Canagliflozin [Invokana] 300 mg PO DAILY 02/21/17 02/21/17 DULoxetine [Cymbalta] 90 mg PO DAILY 02/21/17 02/21/17 Exenatide Microspheres [Bydureon 2 mg SQ QWEEK 02/21/17 02/21/17 Pen] Norethindrone-E.estradiol-Iron [Lo 1 tab PO DAILY 02/21/17 02/21/17 Loestrin Fe 1-10 Tablet] [place]-3 Acid Ethyl Esters [Lovaza] 1 gm PO DAILY 02/21/17 02/21/17 Omeprazole [PriLOSEC] 20 mg PO DAILY 02/21/17 02/21/17 Triamterene/Hydrochlorothiazid 1 cap PO DAILY 02/21/17 02/21/17 [Dyazide 37.5-25 Capsule] Previous Rx's Medication Instructions Recorded Docusate [Colace] 100 mg PO BID #30 capsule 02/24/17 OxyCODONE/APAP 5/325 [Percocet 1 each PO Q4HR PRN #30 tablet 02/24/17 5/325 MG] Promethazine [Phenergan] 25 mg PO Q8HR PRN #30 tablet 02/24/17 Allergies Allergy/AdvReac Type Severity Reaction Status Date / Time meloxicam Allergy Hives Verified 08/13/17 15:20 metoclopramide [From Reglan] Allergy Hives Verified 08/13/17 15:20 morphine Allergy Fever Verified 08/13/17 15:20 ondansetron Allergy Hives Verified 08/13/17 15:20 [From Zofran (as hydrochloride)] Constitutional: Denies: fever Cardiovascular: Reports: chest pain Respiratory: Denies: cough, dyspnea, wheezes Gastrointestinal: Reports: nausea. 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 - Social History Smoking Status: Never smoker Smokeless Tobacco Status: No Alcohol use: Reports: none Drug use: Reports: none Physical Exam - General General appearance: alert, in no apparent distress Course Vital Signs Temperature 98.7 F 08/13/17 15:15 Pulse Rate 86 08/13/17 15:15 Respiratory Rate 20 08/13/17 15:15 Blood Pressure 127/80 08/13/17 15:15 O2 Sat by Pulse Oximetry 96 08/13/17 15:15 Temperature 98.7 F 08/13/17 15:18 Pulse Rate 87 08/13/17 19:02 Respiratory Rate 16 08/13/17 19:02 Blood Pressure 106/74 08/13/17 19:02 O2 Sat by Pulse Oximetry 96 08/13/17 19:02 Oxygen Delivery Oxygen Delivery Room Air Medical Decision Making - Lab Data Result diagrams: 08/13/17 16:03 08/13/17 16:03 Lab Results 08/13/17 08/13/17 08/13/17 Range/Units 16:03 16:03 16:03 WBC 8.0 (4.3-11.1) K/mcL RBC 4.68 (3.82-4.97) M/mcL Hgb 13.1 (11.5-15.4) g/dL Hct 40.6 (35.3-44.9) % MCV 86.8 (83.0-100.0) fL MCH 28.0 (28.0-33.3) pg MCHC 32.3 (31.6-35.5) g/dL RDW 15.0 H (11.5-14.5) % Plt Count 296 (140-400) K/mcL MPV 9.7 (9.4-12.4) fL Immature Gran % 0.4 (0-4) % Seg Neutrophils % 65.4 % Lymphocytes % 25.6 % Monocytes % 7.0 % Eosinophils % 1.1 % Basophils % 0.5 % Neutrophils # 5.2 (1.6-8.9) K/mcL Lymphocytes # 2.0 (0.6-4.6) K/mcL Monocytes # 0.6 (0.0-1.3) K/mcL Eosinophils # 0.1 (0.0-0.6) K/mcL Basophils # 0.0 (0.0-0.2) K/mcL Immature Plt Fraction 2.5 (1.1-6.1) % Sodium 135 L (136-145) mEq/L Potassium 4.5 (3.5-5.1) mEq/L Chloride 101 (98-107) mEq/L Carbon Dioxide 20 L (23-29) mEq/L BUN 23 H (6-20) mg/dL Creatinine 0.80 (0.60-1.20) mg/dL Est GFR ( Amer) > 60 (> 60) Est GFR (Non-Af Amer) > 60 (> 60) BUN/Creatinine Ratio 29 H (6-26) Glucose 122 H (70-105) mg/dL Calculated Osmolality 285 (280-300) Calcium 9.5 (8.6-10.3) mg/dL Troponin I < 0.03 (< 0.04) ng/mL B-Natriuretic Peptide 9 (Less than 100) pg/mL Attestation Statement - Attestation Attestation: I examined this patient and my medical decision-making was reviewed with the Resident Physician, Dr. Meehan. I agree with the documented findings, disposition and treatment plan as described except to the extent set forth below. Patient is a 51-year-old female with a history of hypertension hyperlipidemia and diabetes mellitus who presents to the emergency department with intermittent episodes of left-sided chest discomfort since last night. Initial episode occurred at rest and lasted for a few minutes and resolve spontaneously and patient states that it has been happening off and on intermittently like that since. No aggravating or alleviating factors to the onset of the pain there is no radiation of the pain it is associated with shortness of breath diaphoresis and lightheadedness. Patient was also concerned she reports having a known thoracic aortic aneurysm and has not been evaluated by vascular surgery over the past 3 years. Patient states that she has had no prior cardiac evaluation for chest pain in the past although numerous risk factors as well as strong family history. I agree with patient's physical exam findings as documented. Vital signs are stable on arrival patient's in no acute distress and reports a 9 out of 10 chest discomfort on initial evaluation. She received aspirin and nitroglycerin trial on her episodes seem less frequent although she is describing intermittent episodes on reevaluation she is pain- free but states that episodes come every 5-10 minutes last for about 10 seconds and resolved. Patient had EKG performed which was normal sinus rhythm with no acute ischemia appreciated this was compared to prior EKG. Lab Tory evaluation was unremarkable overall portal chest x-ray was obtained which did not show any concerning findings it was no acute process patient went for CTA to reevaluate her thoracic aortic aneurysm. CTA of the chest was unremarkable. Patient's been hemodynamically stable and pain-free for the last 30 minutes on serial re-evaluations. Due to her risk factors, initial heart score equals 6, we will bring her in for further cardiac evaluation and management. Case was discussed with hospitalist who accepted the patient for admission.
[2017-08-13] MEDS ORDERED: *HR* Dextrose 50 % in Water (Syg) 50 ML SYRINGE IVP PRN (19:26)
[2017-08-13] MEDS ORDERED: Dextrose Gel 15 GM/37.5 ML TUBE PO PRN ×2 (19:26)
[2017-08-13] MEDS ORDERED: Ondansetron 4 MG/2 ML VIAL IVP PRN (19:26)
[2017-08-13] MEDS ORDERED: OXYCODONE Oral CONC 10 MG/0.5 ML ORAL.SYG SL PRN ×2 (19:26)
[2017-08-13] MEDS ORDERED: D5% in Water 1,000 ML IVC PRN (19:26)
[2017-08-13] MEDS ORDERED: Naloxone 0.4 MG/ML INJ IVP PRN (19:26)
--- NOTE | 2017-08-13 19:32 | Internal Med History&Physical ---
Date of Encounter: 08/13/17 Time of Encounter: 19:30 Internal Medicine - H&P: HPI Chief complaint: Chest pain Admitted From: Emergency Dept History of present illness: Ms. Carpenter is a 51 year old female with a past medical history of diabetes type 2 not insulin-dependent, hypertension, hyperlipidemia who came to emergency room complaining of left-sided pressure-like chest pain that started at 4 AM on and off 9 out of 10 in intensity lasting up to 30 seconds with several episodes throughout the day. Patient said that she felt dizzy at some point and diaphoretic. She has a known thoracic aortic aneurysm for which she had a CTA of the chest which did not show any PE or change in her aneurysm. Patient is pain-free at the moment but mentions that he is not sure whether nitroglycerin helped or not. Glucose is 122 and sodium is 135. She has a history of myocardial infarction in both her father her mother in grandparents. Past Med Surg Social Fam HX - Past Medical History Medical history: aortic aneurysm (Thoracic), diabetes (Not insulin-dependent), GERD, hyperlipidemia, hypertension, other (Left ovarian cyst, irritable bowel syndrome) Additional medical history: thoracic aorta aneurysm Psychiatric history: anxiety, depression - Past Surgical History Surgical History: appendectomy, cholecystectomy, other (Left knee scope, hernia repair) Additional surgical history: Left knee repair - Social History Smoking Status: Never smoker Smokeless Tobacco Status: No Alcohol use: none Drug use: none - Family History Father Living Status: Hx Family Cardiac Disorders: Yes (CAD, HTN) Hx Family Endocrine Disorder: Yes (Diabetes Mellitus) Brother Family Member Ethnicity: Non- Living Status: Hx Family Cancer: Yes (Liver cancer, bone cancer) Daughter Family Member Ethnicity: Non- Living Status: Still Living Hx Family Cardiac Disorders: Yes (Heart arrhythmia) Son Family Member Ethnicity: Non- Living Status: Still Living Sister Family Member Ethnicity: Non- Living Status: Still Living Hx Family Cardiac Disorders: Yes (HTN) Hx Family Endocrine Disorder: Yes (DM) Mother Family Member Ethnicity: Non- Living Status: Still Living Hx Family Cardiac Disorders: Yes (HTN) Hx Family Cancer: Yes (Breast cancer (40's)) Hx Family GI Disorders: Yes (Colon pre-cancerous polyps) Hx Family Endocrine Disorder: Yes (DM) - Additional Family History Additional family history: Father and mother with diabetes and myocardial infarction's on their 50s Internal Medicine - H&P: Meds Lisinopril [Zestril] 20 mg PO DAILY 11/09/14 [History] Metformin [Glucophage] 1,000 mg PO BIDWM 11/09/14 [History] Metoprolol [Lopressor] 25 mg PO BID 11/09/14 [History] Aripiprazole [Abilify] 2.5 mg PO DAILY 02/21/17 [History] Aspirin [Lo-Dose Aspirin EC] 81 mg PO DAILY 02/21/17 [History] Atorvastatin [Lipitor] 40 mg PO HS 02/21/17 [History] Canagliflozin [Invokana] 300 mg PO DAILY 02/21/17 [History] DULoxetine [Cymbalta] 90 mg PO DAILY 02/21/17 [History] Exenatide Microspheres [Bydureon Pen] 2 mg SQ QWEEK 02/21/17 [History] Norethindrone-E.estradiol-Iron [Lo Loestrin Fe 1-10 Tablet] 1 tab PO DAILY 02/21 [History] [place]-3 Acid Ethyl Esters [Lovaza] 1 gm PO DAILY 02/21/17 [History] Omeprazole [PriLOSEC] 20 mg PO DAILY 02/21/17 [History] Triamterene/Hydrochlorothiazid [Dyazide 37.5-25 Capsule] 1 cap PO DAILY [History] Docusate [Colace] 100 mg PO BID #30 capsule 02/24/17 [Rx] OxyCODONE/APAP 5/325 [Percocet 5/325 MG] 1 each PO Q4HR PRN #30 tablet 02/24/17 [Rx] Promethazine [Phenergan] 25 mg PO Q8HR PRN #30 tablet 02/24/17 [Rx] 3 Allergy/AdvReac Type Severity Reaction Status Date / Time meloxicam Allergy Hives Verified 08/13/17 15:20 metoclopramide [From Reglan] Allergy Hives Verified 08/13/17 15:20 morphine Allergy Fever Verified 08/13/17 15:20 ondansetron Allergy Hives Verified 08/13/17 15:20 [From Zofran (as hydrochloride)] All Systems PM: A 10-system review of systems was performed and is negative for pertinent findings except as documented above in the HPI. Review of systems: No chest or shortness of breath at the moment, other systems out of the 10 reviewed were negative - Constitutional Vitals: Temp Pulse Resp BP Pulse Ox 98.7 F 87 16 106/74 96 08/13/17 15:18 08/13/17 19:02 08/13/17 19:02 08/13/17 19:02 08/13/17 19:02 General appearance: Present: A&O X 3, morbidly obese - Head Head exam: Present: atraumatic, normocephalic - Eye Eye exam: Present: PERRL, conjuntiva pink, sclera anicteric Pupils: Present: PERRL - Neck Neck exam general surgery: Present: supple, trachea midline. Absent: lymphadenopathy - Respiratory Respiratory exam: Present: CTAB. Absent: accessory muscle use, rales, rhonchi, wheezes - Cardiovascular Cardiovascular exam: Present: RRR, +S1, +S2. Absent: diastolic murmur, gallop, rubs, systolic murmur - GI/Abdominal GI/Abdominal exam: Present: normal bowel sounds, soft, no peritoneal signs. Absent: distended, tenderness - Extremities Exam Extremities exam: Present: warm, radial pulses palpable and symmetrical. Absent : calf tenderness, cyanotic, pedal edema - Neurological Exam Neurological exam: Present: CN II-XII intact, oriented X3, no focal deficits. Absent: pronater drift, facial droop, speech deficit - Skin Skin exam: Present: dry, intact Internal Med - H&P Results - Labs CBC & Chem 7: 08/13/17 16:03 08/13/17 16:03 - Assessment and plan (1) Chest pain Current Visit: Yes Status: Acute Assessment and plan: Unknown etiology Continue aspirin, Lipitor, check lipid panel in the morning Hold metoprolol for stress test Telemetry, follow troponins, order stress test and echocardiogram for the morning Consider cardiology consult if needed Omeprazole for GI prophylaxis and Lovenox for DVT prophylaxis. The patient will be admitted for observation. Full code. Time spent on this admission 40 minutes. Qualifiers: Chest pain type: other chest pain Qualified Code(s): R07.89 - Other chest pain; R07.8 - Other chest pain (2) Diabetes Current Visit: No Status: Chronic Assessment and plan: Insulin sliding scale Qualifiers: Diabetes mellitus type: type 2 Diabetes mellitus salvage determiner insulin use: without fpc use Diabetes mellitus complication status: with unspecified complications Qualified Code(s): E11.8 - Type 2 diabetes mellitus with unspecified complications (3) GERD (gastroesophageal reflux disease) Current Visit: No Status: Chronic Qualifiers: Esophagitis presence: esophagitis presence not specified Qualified Code(s) : K21.9 - Gastro-esophageal reflux disease without esophagitis (4) HLD (hyperlipidemia) Current Visit: No Status: Chronic Qualifiers: Hyperlipidemia type: pure hypercholesterolemia Qualified Code(s): E78.00 - Pure hypercholesterolemia, unspecified; E78.0 - Pure hypercholesterolemia (5) HTN (hypertension) Current Visit: No Status: Chronic Assessment and plan: Stable Qualifiers: Hypertension type: essential hypertension Qualified Code(s): I10 - Essential (primary) hypertension (6) Thoracic aortic aneurysm without rupture Current Visit: No Status: Chronic Assessment and plan: No change, follow-up as an outpatient - Time Spent With Patient Total time spent is greater than 50% in coordination of care (as documented) at patient's floor/unit and/or counseling patient:
[2017-08-13] MEDS: *HR* OxyCODONE/APAP 5/325 TABLET PO PRN (20:45)
[2017-08-13] MEDS: *HR* Promethazine 25 MG/ML VIAL IVP PRN (21:15)
[2017-08-13] MEDS: 0.9 % Sodium Chloride 1,000 ML IVC SCH (21:16)
[2017-08-13] MEDS: *HR* Enoxaparin 40 MG/0.4 ML SYRINGE SQ SCH (21:16)
[2017-08-13] MEDS: Insulin LISPRO 300 UNITS/3 ML VIAL SQ SCH ×2 (21:25→21:26)
[2017-08-14] MEDS: *HR* OxyCODONE/APAP 5/325 TABLET PO PRN ×4 (01:15→21:41)
[2017-08-14 04:48] LABS: Troponin I < 0.03 ng/mL (< 0.04)
[2017-08-14] MEDS: *HR* Enoxaparin 40 MG/0.4 ML SYRINGE SQ SCH (05:41)
[2017-08-14 05:55] LABS: BUN/Creatinine Ratio 30 (6-26); Blood Urea Nitrogen 23 mg/dL (6-20); Calcium 9.3 mg/dL (8.6-10.3); Carbon Dioxide 22 mEq/L (23-29); Chloride 101 mEq/L (98-107); Chol/HDL Ratio 9.7 (0-4.9); Cholesterol 358 mg/dL (< 200); Glucose 151 mg/dL (70-105); HDL Cholesterol 37 mg/dL (40-59); Osmolality,Calculated 285 (280-300); Sodium 134 mEq/L (136-145); Triglycerides 1942 mg/dL (< 150); eGFR For African Americans > 60 (> 60); eGFR For Non-African Americans > 60 (> 60)
[2017-08-14] MEDS ORDERED: Regadenoson 0.4 MG/5 ML SYRINGE IVP ONE (06:02)
[2017-08-14] MEDS: Insulin LISPRO 300 UNITS/3 ML VIAL SQ SCH ×4 (07:42→22:48)
[2017-08-14 09:28] LABS: Estimated Average Glucose 169 mg/dl; Hemoglobin A1C 7.5 %
[2017-08-14] MEDS: Aspirin Enteric Coated 81 MG Tablet PO SCH (10:10)
[2017-08-14] MEDS: Lisinopril 20 MG TABLET PO SCH (10:10)
[2017-08-14] MEDS: ARIPiprazole 5 MG TABLET PO SCH (10:10)
[2017-08-14] MEDS: *HR* Promethazine 25 MG/ML VIAL IVP PRN ×3 (10:12→21:44)
[2017-08-14 10:34] LABS: Lipase 75 Units/L (11-82)
[2017-08-14] MEDS: 0.9 % Sodium Chloride 1,000 ML IVC SCH (13:31)
--- NOTE | 2017-08-14 17:21 | Electrocardiograph Report ---
[place] [id number] Test Date: 2017-08-13 Pat Name: Basia Carpenter Department: 103 Room: 3B Gender: F Administrative Support Assoc: BOY : 1965 Requested By: Ebenezer Meehan Order Number: [id number] Reading MD: Kelly Bronson Measurements Intervals [place] Rate: 83 P: 12 [place]: 149 QRS: 2 QRSD: 89 T: 25 QT: 366 QTc: 406 Interpretive Statements SINUS RHYTHM LOW QRS VOLTAGE IN PRECORDIAL LEADS [QRS DEFLECTION < 1.0 mV IN CHEST LEADS] Electronically Signed On 08-14-2017 17:20:01 EDT by Kelly Bronson
--- NOTE | 2017-08-14 18:10 | Internal Med Progress Note ---
Date of Encounter: 08/14/17 Time of Encounter: 18:09 - Assessment and plan (1) Chest pain Current Visit: Yes Status: Acute Assessment and plan: Presented with left-sided chest pain of unknown etiology Continuing to report intermittent diaphoresis and dizziness with chest pain Risk factors include morbid obesity, HTN, HLD, severe hypertriglyceridemia Patient reports she is noncompliant with her Lipitor regimen No ECG changes concerning for ischemia, Troponins negative 2, TTE LVEF 60%, mild left ventricular diastolic dysfunction, normal right ventricular structure and function, no significant valvular dysfunction, no pulmonary hypertension, descending aorta size upper limits of normal, 3.8 cm no change from prior. Stress test in the morning-regardless of stress test, if chest pain continues with patient's risk factors she may benefit from cardio consult and C Continue aspirin, Lipitor Hold metoprolol for am stress test Telemetry Omeprazole for GI prophylaxis Lovenox for DVT prophylaxis s/l nitroglycerin when necessary for chest pain Qualifiers: Chest pain type: other chest pain Qualified Code(s): R07.89 - Other chest pain; R07.8 - Other chest pain (2) Diabetes Current Visit: Yes Status: Chronic Assessment and plan: History of type 2 diabetes, continue sliding scale insulin coverage, adjust as necessary Qualifiers: Diabetes mellitus type: type 2 Diabetes mellitus group home insulin use: without group home use Diabetes mellitus complication status: with unspecified complications Qualified Code(s): E11.8 - Type 2 diabetes mellitus with unspecified complications (3) HTN (hypertension) Current Visit: Yes Status: Chronic Assessment and plan: Stable continue to monitor, continue to hold beta balwinder for stress test in the morning Qualifiers: Hypertension type: essential hypertension Qualified Code(s): I10 - Essential (primary) hypertension (4) HLD (hyperlipidemia) Current Visit: Yes Status: Chronic Assessment and plan: HLD with hypertriglyceridemia. Total cholesterol 358, LDL TNP, VLDL TNP, HDL 37 , cholesterol/HDL ratio 9.7. Triglycerides 1942 Qualifiers: Hyperlipidemia type: pure hypercholesterolemia Qualified Code(s): E78.00 - Pure hypercholesterolemia, unspecified; E78.0 - Pure hypercholesterolemia (5) GERD (gastroesophageal reflux disease) Current Visit: Yes Status: Chronic Assessment and plan: Continue PPI Qualifiers: Esophagitis presence: esophagitis presence not specified Qualified Code(s) : K21.9 - Gastro-esophageal reflux disease without esophagitis (6) Thoracic aortic aneurysm without rupture Current Visit: Yes Status: Chronic Assessment and plan: Thoracic aortic aneurysm identified within upper limits of normal, No change from prior imaging, follow-up as an outpatient - Time Spent With Patient Total time spent is greater than 50% in coordination of care (as documented) at patient's floor/unit and/or counseling patient: 25 - 35 minutes - Subjective Interval history: Ms. Carpenter is a 51 year old female with a past medical history of diabetes type 2 not insulin-dependent, hypertension, hyperlipidemia who came to emergency room complaining of left-sided pressure-like chest pain. No acute changes overnight. Continuing to endorse mild left-sided chest discomfort. Does have some intermittent dizziness and diaphoresis with chest discomfort as well. - Constitutional Vitals: Temp Pulse Resp BP Pulse Ox 98.3 F 106 15 100/68 96 08/14/17 11:03 08/14/17 15:15 08/14/17 15:15 08/14/17 15:15 08/14/17 15:15 General appearance: Present: A&O X 3, morbidly obese - Head Head exam: Present: atraumatic, normocephalic - Eye Eye exam: Present: PERRL, conjuntiva pink, sclera anicteric Pupils: Present: PERRL - Neck Neck exam general surgery: Present: supple, trachea midline. Absent: lymphadenopathy - Respiratory Respiratory exam: Present: CTAB. Absent: accessory muscle use, rales, rhonchi, wheezes - Cardiovascular Cardiovascular exam: Present: RRR, +S1, +S2. Absent: diastolic murmur, gallop, rubs, systolic murmur - GI/Abdominal GI/Abdominal exam: Present: normal bowel sounds, soft, no peritoneal signs. Absent: distended, tenderness - Extremities Exam Extremities exam: Present: warm, radial pulses palpable and symmetrical. Absent : calf tenderness, cyanotic, pedal edema - Neurological Exam Neurological exam: Present: CN II-XII intact, oriented X3, no focal deficits. Absent: pronater drift, facial droop, speech deficit - Skin Skin exam: Present: dry, intact Internal Medicine: Result - Labs CBC & Chem 7: 08/13/17 16:03 08/14/17 04:00 Labs: BMP 08/14/17 04:00 Sodium 134 L Potassium 4.0 Chloride 101 Carbon Dioxide 22 L BUN 23 H Creatinine 0.77 Glucose 151 H Calcium 9.3 Cardiac Enzymes 08/14/17 Range/Units 04:00 Troponin I < 0.03 (< 0.04) ng/mL - Impressions Impressions Echocardiogram 08/14/17 19:24 Impressions: LVEF 60%. Mild left ventricular diastolic dysfunction. Normal right ventricular structure and function. No significant valvular dysfunction. No pulmonary hypertension. Ascending aorta size upper limits of normal, 3.8cm. Left Ventricular Wall Motion: Rest Echo Findings All wall segments showed normal motion. Findings: Study Quality * Technically adequate exam. ECG Findings * Normal sinus rhythm. Left Ventricle * LVEF 60%. * Mild left ventricular diastolic dysfunction. * Normal LV chamber size, wall thickness and function. Right Ventricle * Normal right ventricular structure and function. Left Atrium * Normal left atrial size. Right Atrium * Normal right atrial size. Aortic Valve * No aortic regurgitation. * No aortic stenosis. * Aortic valve not well visualized. Mitral Valve * No mitral regurgitation. * Normal mitral valve structure. * No mitral stenosis. Tricuspid Valve * Tricuspid valve not well visualized. * Trace tricuspid regurgitation. * Estimated RA pressure is 3 mmHg. * Estimated RVSP is 21 mmHg. * No pulmonary hypertension. Pulmonic Valve * Pulmonic valve is not well visualized. * No pulmonic stenosis. * No pulmonic regurgitation. Pulmonary Artery * Pulmonary artery not well visualized. Aorta * Normally sized aortic root. * Ascending aorta size upper limits of normal, 3.8cm. Pericardium * There is no pericardial effusion present. Interatrial Septum * No evidence of PFO by color Doppler. IVC * Normal IVC dimensions and inspiratory collapse. Consult Discharge Plan - Plan Referrals: Marbin Ruvalcaba MD [Primary Care Provider] -
[2017-08-14] MEDS: Fenofibrate 54 MG TABLET PO SCH (21:41)
[2017-08-15] MEDS: *HR* OxyCODONE/APAP 5/325 TABLET PO PRN ×5 (02:06→23:31)
[2017-08-15] MEDS: *HR* Promethazine 25 MG/ML VIAL IVP PRN ×3 (05:30→18:35)
[2017-08-15] MEDS: *HR* Enoxaparin 40 MG/0.4 ML SYRINGE SQ SCH (05:31)
[2017-08-15] MEDS: ARIPiprazole 5 MG TABLET PO SCH (08:50)
[2017-08-15] MEDS: Insulin LISPRO 300 UNITS/3 ML VIAL SQ SCH ×4 (08:51→23:25)
[2017-08-15] MEDS: Aspirin Enteric Coated 81 MG Tablet PO SCH (08:51)
[2017-08-15] MEDS: Lisinopril 20 MG TABLET PO SCH (08:51)
[2017-08-15] MEDS: Acetaminophen 325 MG TABLET PO PRN (12:03)
[2017-08-15] MEDS: Fenofibrate 54 MG TABLET PO SCH (17:25)
--- NOTE | 2017-08-15 19:19 | Internal Med Progress Note ---
Date of Encounter: 08/15/17 Time of Encounter: 10:15 - Assessment and plan (1) Chest pain Current Visit: Yes Status: Acute Assessment and plan: Patient reports continued, intermittent with decreasing frequency left chest pain that she describes as squeezing/pressure with associated nausea, dizziness , diaphoresis. Episodes last approximately 10 seconds. Due to patient's risk factors including diabetes, hyperlipidemia, hypertension, chest pain is concerning for cardiac etiology. Chest CTA is negative for PE, echocardiogram with an LVEF of 60%, mild LV DD no significant valvular dysfunction. Ascending aorta size upper limits of normal, 3.8 cm. Stress test was negative for ischemia or infarct. Cardiology has been consulted due to continued chest pain of questionable etiology. Pain is not reproducible with palpation, movement, or deep inspiration. Patient has no epigastric tenderness, nausea, vomiting, or diarrhea. Patient does have nausea with chest pain. Continue tafe registrar labs and vitals Cardiology consult pending Nothing by mouth after midnight Chest CTA 08/13/17 17:30 IMPRESSION: No evidence of pulmonary embolism or acute pulmonary abnormality. D/ / Chase Meneses MD / Chase Meneses MD Interpreting Provider: Chase Meneses MD Echocardiogram 08/14/17 19:24 Impressions: LVEF 60%. Mild left ventricular diastolic dysfunction. Normal right ventricular structure and function. No significant valvular dysfunction. No pulmonary hypertension. Ascending aorta size upper limits of normal, 3.8cm. Left Ventricular Wall Motion: Rest Echo Findings All wall segments showed normal motion. Findings: Study Quality * Technically adequate exam. ECG Findings * Normal sinus rhythm. Left Ventricle * LVEF 60%. * Mild left ventricular diastolic dysfunction. * Normal LV chamber size, wall thickness and function. Right Ventricle * Normal right ventricular structure and function. Left Atrium * Normal left atrial size. Right Atrium * Normal right atrial size. Aortic Valve * No aortic regurgitation. * No aortic stenosis. * Aortic valve not well visualized. Mitral Valve * No mitral regurgitation. * Normal mitral valve structure. * No mitral stenosis. Tricuspid Valve * Tricuspid valve not well visualized. * Trace tricuspid regurgitation. * Estimated RA pressure is 3 mmHg. * Estimated RVSP is 21 mmHg. * No pulmonary hypertension. Pulmonic Valve * Pulmonic valve is not well visualized. * No pulmonic stenosis. * No pulmonic regurgitation. Pulmonary Artery * Pulmonary artery not well visualized. Aorta * Normally sized aortic root. * Ascending aorta size upper limits of normal, 3.8cm. Pericardium * There is no pericardial effusion present. Interatrial Septum * No evidence of PFO by color Doppler. IVC * Normal IVC dimensions and inspiratory collapse. Qualifiers: Chest pain type: other chest pain Qualified Code(s): R07.89 - Other chest pain; R07.8 - Other chest pain (2) Diabetes Current Visit: Yes Status: Chronic Assessment and plan: Uncontrolled. Last A1c was 7.5% continue sliding scale insulin, Accu-Cheks before meals and at bedtime, diabetic diet. Qualifiers: Diabetes mellitus type: type 2 Diabetes mellitus senior care insulin use: without manager long term care use Diabetes mellitus complication status: with unspecified complications Qualified Code(s): E11.8 - Type 2 diabetes mellitus with unspecified complications (3) HTN (hypertension) Current Visit: Yes Status: Chronic Assessment and plan: Blood pressure is well controlled in hospital setting. Continue home medications. Qualifiers: Hypertension type: essential hypertension Qualified Code(s): I10 - Essential (primary) hypertension (4) HLD (hyperlipidemia) Current Visit: Yes Status: Chronic Assessment and plan: Triglycerides 1942, cholesterol 358, HDL is 37. Patient reports that she has been on fish oil and statin in the past. Patient will need to continue after discharge. We discussed risk factor modification. Patient verbalized understanding. Qualifiers: Hyperlipidemia type: pure hypercholesterolemia Qualified Code(s): E78.00 - Pure hypercholesterolemia, unspecified; E78.0 - Pure hypercholesterolemia (5) GERD (gastroesophageal reflux disease) Current Visit: Yes Status: Chronic Assessment and plan: Chronic. Patient denies change or increase in symptoms. Epigastric area is nontender to palpation. Continue home medications. Qualifiers: Esophagitis presence: esophagitis presence not specified Qualified Code(s) : K21.9 - Gastro-esophageal reflux disease without esophagitis (6) Thoracic aortic aneurysm without rupture Current Visit: Yes Status: Chronic Assessment and plan: Thoracic aortic aneurysm noted on echocardiogram, ascending aorta size upper limits of normal, 3.8 cm. Patient will need to follow up with vascular on outpatient basis after discharge. - Time Spent With Patient Total time spent is greater than 50% in coordination of care (as documented) at patient's floor/unit and/or counseling patient: less than 15 minutes - Subjective Interval history: Patient was seen and assessed at 10:15 AM. She reports continued, intermittent left chest pain, decreasing frequency. She describes it as a squeezing or pressure with nausea, dizziness, diaphoresis. She reports that each episode lasts approximately 10 seconds. She denies any headache or dizziness, no blurred vision. She denies any abdominal pain, nausea, vomiting, diarrhea. No peripheral edema. - Constitutional Vitals: Temp Pulse Resp BP Pulse Ox 98.1 F 97 17 102/67 96 08/15/17 15:18 08/15/17 15:18 08/15/17 15:18 08/15/17 15:18 08/15/17 15:18 General appearance: Present: cooperative, A&O X 3, morbidly obese, no acute distress, answers questions appropriately - Head Head exam: Present: atraumatic, normal inspection, normocephalic - Eye Eye exam: Present: normal appearance, conjuntiva pink, sclera anicteric - Neck Neck exam general surgery: Present: supple, trachea midline. Absent: lymphadenopathy, tenderness - Respiratory Respiratory exam: Present: CTAB. Absent: accessory muscle use, chest wall tenderness, decreased breath sounds, rales, rhonchi, wheezes - Cardiovascular Cardiovascular exam: Present: RRR, +S1, +S2. Absent: diastolic murmur, gallop, rubs, systolic murmur - GI/Abdominal GI/Abdominal exam: Present: normal bowel sounds, soft, no peritoneal signs. Absent: distended, hepatomegaly, tenderness - Extremities Exam Extremities exam: Present: normal capillary refill, normal inspection, warm, radial pulses palpable and symmetrical. Absent: calf tenderness, cyanotic, pedal edema, tenderness - Neurological Exam Neurological exam: Present: alert, oriented X3, no focal deficits. Absent: facial droop, speech deficit - Skin Skin exam: Present: dry, intact, normal color, warm. Absent: rash Internal Medicine: Result - Labs CBC & Chem 7: 08/13/17 16:03 08/14/17 04:00 Consult Discharge Plan - Plan Referrals: Marbin Ruvalcaba MD [Primary Care Provider] -
[2017-08-16] MEDS: *HR* Promethazine 25 MG/ML VIAL IVP PRN ×3 (01:02→21:50)
[2017-08-16] MEDS: *HR* Enoxaparin 40 MG/0.4 ML SYRINGE SQ SCH (05:34)
[2017-08-16] MEDS: ARIPiprazole 5 MG TABLET PO SCH (08:03)
[2017-08-16] MEDS: Aspirin Enteric Coated 81 MG Tablet PO SCH (08:03)
[2017-08-16] MEDS: Lisinopril 20 MG TABLET PO SCH (08:04)
[2017-08-16] MEDS: Insulin LISPRO 300 UNITS/3 ML VIAL SQ SCH ×4 (08:16→21:43)
--- NOTE | 2017-08-16 09:20 | Cardiology Consult Note ---
Date of Encounter: 08/16/17 Time of Encounter: 09:00 Assessment and Plan (1) Chest pain Current Visit: Yes Status: Acute Atypical chest pain symptoms, reports recent increase in Qysmia. Troponin negative. No ischemic ECG changes noted. TTE shows preserved LVEF with normal wall motion. Exercise nuclear (2-day) stress negative for ischemia or infarct. Blunted BP response. Cardiology consulted for ongoing chest discomfort despite negative work-up. Pain free upon exam. Risk factors for CAD include: HTN, HLD, obesity, DMII. Discussed medical therapy vs. [facility]; at this time she prefer to continue medical therapy with close outpatient follow-up. On asa, statin, and BB. Will change zocor to atorvastatin. Consider addition of nitrates upon discharge. Will coordinate outpatient follow-up. Qualifiers: Chest pain type: precordial pain Qualified Code(s): R07.2 - Precordial pain (2) HLD (hyperlipidemia) Current Visit: Yes Status: Chronic Yyddkhyhmrdex=0763. Change zocor to atorvastatin. Agree with addition of Tricor. Patient states was on Niacin and Lovaza in the past, recommend close outpt follow-up with PCP. Qualifiers: Hyperlipidemia type: mixed hyperlipidemia Qualified Code(s): E78.2 - Mixed hyperlipidemia (3) HTN (hypertension) Current Visit: Yes Status: Chronic Controlled as inpatient. Continue current medications. Qualifiers: Hypertension type: essential hypertension Qualified Code(s): I10 - Essential (primary) hypertension Discussion w patient/family: The assessment and plan as outlined above was discussed with the patient and/or family members who expressed understanding and agreement. All questions were answered. Thank you for involving us in the care of your patient. Please call with any questions. The patient will be discussed and reviewed with Dr. Holland; changes to be made accordingly. History of Present Illness Consult date: 08/16/17 Requesting physician: Meliza Marcial Consult reason: Chest pain Chief complaint: chest pain History of present illness: Ms. Carpenter is a 51 year old female with PMHx significant for HTN, HLD, DMII, and obesity who presented to the ED on Monday after episode of chest discomfort that awoke her from sleep around 3AM early Monday morning. Describes discomfort as sharp, left-sided with radiation to left axialla. Pain lasted for 10-15 seconds. Nothing seemed to improve or worsen symptoms. Reports no relief with NTG tabs administered in the ED. Reports recent increase in Qsymia for weight loss. Upon arrival to ED, troponin negative, no ischemic ECG changes noted. Underwent chest CTA which was negative for PE, ECHO that demonstrated normal LVEF, and 2-day exercise nuclear stress which was negative for ischemia. Cardiology consulted today for ongoing chest pain. Past Med Surg Social Fam HX - Past Medical History Attestation: Yes The following information was validated with the patient. Source: patient Medical history: aortic aneurysm, diabetes, GERD, hyperlipidemia, hypertension, other Additional medical history: thoracic aorta aneurysm Psychiatric history: anxiety, depression - Past Surgical History Surgical History: appendectomy, cholecystectomy, herniorrhaphy, other Additional surgical history: Surgical Mesh - Social History Smoking Status: Former smoker Smokeless Tobacco Status: No Alcohol use: none Drug use: none - Family History Father Living Status: Hx Family Cardiac Disorders: Yes (CAD, HTN) Hx Family Endocrine Disorder: Yes (Diabetes Mellitus) Brother Family Member Ethnicity: Non- Living Status: Hx Family Cardiac Disorders: No Hx Family Cancer: Yes (Liver cancer, bone cancer) Daughter Family Member Ethnicity: Non- Living Status: Still Living Hx Family Cardiac Disorders: Yes (Heart arrhythmia) Son Family Member Ethnicity: Non- Living Status: Still Living Sister Family Member Ethnicity: Non- Living Status: Still Living Hx Family Cardiac Disorders: Yes (HTN) Hx Family Respiratory Disorders: No Hx Family Cancer: No Hx Family GI Disorders: No Hx Family Genitourinary Disorders: No Hx Family Endocrine Disorder: Yes (DM) Hx Family Musculoskeletal Disorders: No Hx Family Neuromuscular Disorders: No Hx Family Neurologic Disorders: No Hx Family HEENT Disorders: No Hx Family Autoimmune Disorders: No Hx Family Reproductive Disorders: No Hx Family Psychosocial Disorders: No Hx Family Medical Disorders: No Mother Family Member Ethnicity: Non- Living Status: Still Living Hx Family Cardiac Disorders: Yes (HTN) Hx Family Cancer: Yes (Breast cancer (40's)) Hx Family GI Disorders: Yes (Colon pre-cancerous polyps) Hx Family Endocrine Disorder: Yes (DM) Medications and Allergies Lisinopril [Zestril] 20 mg PO DAILY 11/09/14 [History] Metformin [Glucophage] 1,000 mg PO BIDWM 11/09/14 [History] Metoprolol [Lopressor] 25 mg PO BID 11/09/14 [History] Aripiprazole [Abilify] 5 mg PO DAILY 02/21/17 [History] Aspirin [Lo-Dose Aspirin EC] 81 mg PO DAILY 02/21/17 [History] Atorvastatin [Lipitor] 40 mg PO HS 02/21/17 [History] Canagliflozin [Invokana] 300 mg PO DAILY 02/21/17 [History] DULoxetine [Cymbalta] 90 mg PO DAILY 02/21/17 [History] Exenatide Microspheres [Bydureon Pen] 2 mg SQ FR 02/21/17 [History] Norethindrone-E.estradiol-Iron [Lo Loestrin Fe 1-10 Tablet] 1 tab PO DAILY 02/21 [History] [place]-3 Acid Ethyl Esters [Lovaza] 1 gm PO DAILY 02/21/17 [History] Omeprazole [PriLOSEC] 20 mg PO DAILY 02/21/17 [History] Triamterene/Hydrochlorothiazid [Dyazide 37.5-25 Capsule] 1 cap PO DAILY [History] Promethazine [Phenergan] 25 mg PO Q8HR PRN #30 tablet 02/24/17 [Rx] HYDROcodone/Acet 5/325 mg [[place] 5-325 mg] 1 tab PO Q8H PRN 08/14/17 [History] Phentermine/Topiramate [Qsymia 7.5 mg-46 mg Capsule] 1 cap PO DAILY 08/14/17 [ History] 3 Allergy/AdvReac Type Severity Reaction Status Date / Time meloxicam Allergy Hives Verified 08/13/17 15:20 metoclopramide [From Reglan] Allergy Hives Verified 08/13/17 15:20 morphine Allergy Fever Verified 08/13/17 15:20 ondansetron Allergy Hives Verified 08/13/17 15:20 [From Zofran (as hydrochloride)] All Systems Review: The remainder of the systems were reviewed and are negative - Cardiovascular Cardiovascular: as per HPI Physical Examination Vital Signs, Last 4 Hours Temp Pulse Resp BP Pulse Ox 08/16/17 07:45 98.2 F 86 17 109/75 94 General: Conversant, Other (obese) HEENT: Atraumatic, Normocephaly Cardiac: Reg Rate and Rhythm, Normal S1 and S2 Lungs: Normal Breath Sounds Neuro: Alert and responsive Abdomen: Soft Skin: No rashes noted on visualized skin Musculoskeletal: No Chest Wall Tenderness Extremities: No Edema, Normal Pulses Results 08/13/17 16:03 08/14/17 04:00 Active Medications Acetaminophen (Tylenol) 650 mg PO Q4HR PRN PRN Reason: fever and mild pain Stop: 02/12/18 19:26 Last Admin: 08/15/17 12:03 Dose: 650 mg Aripiprazole (Abilify) 2.[address] [facility] Stop: 02/13/18 09:01 Last Admin: 08/16/17 08:03 Dose: 2.5 mg Aspirin (Aspirin Ec) [address] [facility] Stop: 02/13/18 09:01 Last Admin: 08/16/17 08:03 Dose: 81 mg Dextrose/Water (Dextrose 50% (Syg)) 25 ml IVP AD PRN PRN Reason: Hypoglycemia Stop: 02/12/18 19:27 Duloxetine HCl (Cymbalta) [address] [facility] Stop: 02/13/18 09:01 Last Admin: 08/16/17 08:04 Dose: 90 mg Enoxaparin Sodium (Lovenox) [address] [facility] PRN Reason: Protocol Stop: 02/12/18 19:27 Last Admin: 08/16/17 05:34 Dose: 40 mg Fenofibrate (Tricor) 108 mg PO QPM [facility] PRN Reason: Protocol Stop: 02/13/18 21:01 Last Admin: 08/15/17 17:25 Dose: 108 mg Glucagon (Glucagen) 1 mg IM ONCE PRN PRN Reason: Hypoglycemia Stop: 02/12/18 19:27 Glucose (Gluctose) 15 gm PO ONCE PRN PRN Reason: Hypoglycemia Stop: 02/12/18 19:27 Glucose (Gluctose) 30 gm PO ONCE PRN PRN Reason: Hypoglycemia Stop: 02/12/18 19:27 Dextrose (Dextrose 5%) 1,000 mls @ 100 mls/hr IVC .Q10H PRN PRN Reason: HYPOGLYCEMIA Stop: 02/12/18 19:27 Insulin Human Lispro (Humalog) [address] [facility] PRN Reason: Protocol Stop: 02/12/18 19:31 Last Admin: 08/16/17 08:16 Dose: 4 units Insulin Human Lispro (Humalog) [address] [facility] PRN Reason: Protocol Stop: 02/12/18 21:01 Last Admin: 08/15/17 23:25 Dose: Not Given Lisinopril (Zestril) 20 mg PO DAILY [facility] PRN Reason: Protocol Stop: 02/13/18 09:01 Last Admin: 08/16/17 08:04 Dose: 20 mg Metoprolol Tartrate (Lopressor) 25 mg PO BID [facility] Stop: 02/14/18 21:01 Last Admin: 08/16/17 08:04 Dose: 25 mg Naloxone HCl (Narcan) 0.4 mg IVP Q2MIN PRN PRN Reason: SEE COMMENTS Stop: 02/12/18 19:27 Nitroglycerin (Nitroglycerin) 0.4 mg SL Q5MIN PRN PRN Reason: Chest Pain Stop: 02/12/18 16:05 Last Admin: 08/13/17 16:19 Dose: 0.4 mg Omeprazole (Prilosec) [address] [facility] PRN Reason: Protocol Stop: 02/13/18 06:31 Last Admin: 08/16/17 05:35 Dose: 20 mg Oxycodone HCl (Oxycodone Oral Conc) 5 mg SL Q4H PRN; Protocol PRN Reason: mild to moderate pain Stop: 02/12/18 19:27 Oxycodone HCl (Oxycodone Oral Conc) 10 mg SL Q4H PRN; Protocol PRN Reason: Severe Pain Stop: 02/12/18 19:27 Oxycodone/Acetaminophen (Percocet 5/325) 1 each PO Q4HR PRN PRN Reason: Moderate Pain Stop: 02/12/18 19:24 Last Admin: 08/15/17 23:31 Dose: 1 each Promethazine HCl (Phenergan) 12.5 mg IVP Q6HR PRN PRN Reason: Nausea And Vomiting Stop: 02/12/18 21:10 Last Admin: 08/16/17 08:17 Dose: 12.5 mg Simvastatin (Zocor) [address] [facility] PRN Reason: Protocol Stop: 02/13/18 21:01 Last Admin: 08/15/17 23:24 Dose: 40 mg Triamterene/HCTZ (Dyazide) 1 each PO DAILY [facility] Stop: 02/13/18 09:01 Last Admin: 08/16/17 08:04 Dose: 1 each - Imaging and Cardiology Chest Xray: report reviewed Stress Test: report reviewed Echo: report reviewed Other Results: 12 hour tele: avg HR=90 SR. No significant event noted. - EKG Interpretation EKG results cardiology: personally reviewed Consult Discharge Plan - Plan Referrals: Marbin Ruvalcaba MD [Primary Care Provider] -
[2017-08-16] MEDS: *HR* OxyCODONE/APAP 5/325 TABLET PO PRN ×2 (09:38→13:46)
--- NOTE | 2017-08-16 13:16 | Pre-Sedation Evaluation ---
Pre-sedation evaluation - Pre-sedation checklist Date of procedure: 08/16/17 Procedure: [facility] Recent Vitals: Last Vital Signs Temp 97.2 F L 08/16/17 12:34 Pulse 86 08/16/17 12:34 Resp 16 08/16/17 12:34 BP 105/70 08/16/17 12:34 Pulse Ox 94 08/16/17 12:34 H&P (including ROS) documented in medical record: Yes Previous reaction to sedatives/anesthetics: No Dietary Status: NPO after Midnight Dentition: full dentition ASA Classification *see protocol: CLASS II-Mild systemic disease Plan of Care: Pt appropriate candidate for procedure/moderate/conscious sedation , Risks/benefits of procedure/sedation discussed w/ patient/family
[2017-08-16] MEDS ORDERED: 0.9 % Sodium Chloride 1,000 ML ONE ×3 (15:14→15:43)
[2017-08-16] MEDS ORDERED: Verapamil 5 MG/2 ML VIAL ONE (15:14)
[2017-08-16] MEDS ORDERED: ISOVUE-370 200 ML INFUS..BTL IV ONE (15:15)
[2017-08-16] MEDS ORDERED: Heparin 1,000 UNITS/500 mL 500 ML ONE (15:15)
[2017-08-16] MEDS ORDERED: Nitroglycerin 1,000 MCG/10 ML VIAL IV ONE (15:15)
[2017-08-16] MEDS ORDERED: *HR* Heparin 10,000 UNIT/10 ML VIAL ONE (15:15)
[2017-08-16] MEDS ORDERED: *HR* Promethazine 25 MG/ML VIAL ONE (15:42)
[2017-08-16] MEDS ORDERED: *HR* Midazolam HCl 2 MG/2 ML VIAL ONE ×2 (15:56→16:04)
[2017-08-16] MEDS ORDERED: *HR* FentaNYL (PF) 100 MCG/2 ML VIAL ONE (15:57)
--- NOTE | 2017-08-16 16:42 | Invasive Diagnostic Lab Proc ---
Name: Basia Carpenter Date of Study: 08/16/2017 Date: 1965 Ht: 65.0in Medical Record#: [id number] Age: 51 Wt: 268.96lb Gender: Female BSA: 2.24 Order #: [id number] BMI: 44.81 Physicians Procedure Physician: Meet Hubbard MD, [facility] Referring MD: Referring MD: Indications Indication Unstable Angina Procedures Performed Procedure L HRT ARTERY/VENTRICLE ANGIO Pre-Procedure Checklist Informed consent is complete signed and on chart. H&P is on chart. ID band is on and ID verified with patient. Patient NPO for procedure The procedure was described for the patient and questions were answered. Blood Pressure: 105/70 ECG is on chart. Rhythm: NSR Plan of Care Patient will tolerate the procedure without complications. Adequate level of comfort will be maintained. Hemodynamics will remain stable Patient will recover from procedure without complications. Respiratory function will be maintained. Cardiac rhythm will remain stable. Patient temperature will be maintained. Patient and/or family have verbalized understanding of the procedure. Patient Education Chief Complaint/Reason for Test: Cardiac Cath Developmental Category: Adult (18-64 years) Developmentally Appropriate for Age: Yes Learning Barriers: None Education Needs: Procedure Education Method: Verbal Information Taught: Cardiac Cath Educational Evaluation: Able to repeat information Intravenous Access Time IV Size Location DC'd Fluid/Drip Rate Units RN 03:45 PM Started with 20g 1 1/4" Lt Antecubital 0.9NaCl 25 ml/hr Linda Hall RN Allergies morphine metoclopramide meloxicam zofran Vital Signs Time BP (mmHg) HR (bpm) O2 Sat. RR (bpm) LOC 03:47 PM 105 / 70 86 94 % 16 5 = Fully awake and oriented or at pre-proc level 03:57 PM / % 5 = Fully awake and oriented or at pre-proc level 03:57 PM / % 4 = Oriented but drowsy 03:57 PM 151 / 79 86 98 % 04:02 PM 137 / 76 91 97 % 04:07 PM 108 / 58 95 95 % 04:12 PM 117 / 67 100 94 % 04:17 PM 128 / 67 106 95 % Procedural Medications Time Medication Dose Units Method Given By 03:53 PM Phenergan 12.5 mg Intravenous Celia Guaman RN 04:01 PM Oxygen 2 L/min nasal cannula Linda Hall RN 04:01 PM Versed 2 mg Intravenous Linda Hall RN 04:01 PM Fentanyl 25 mcg Intravenous Linda Hall RN 04:02 PM Lidocaine 2% 0.5 ml Subcutaneous Meet Hubbard MD, [facility] 04:03 PM Versed 1 mg Intravenous Linda Hall RN 04:03 PM Fentanyl 50 mcg Intravenous Linda Hall RN 04:05 PM Heparin 4000 units Nitroglycerin 200 mcg Verapamil 2.5 mg Intraarterial Meet Hubbard MD, [facility] ASA Classification: CLASS II- Mild systemic disease (i.e. well-controlled diabetes, hypertension, asthma, cigarette smoking) Roberta Score Preprocedure Postprocedure Activity 2- Moves 4 extremities sustained head lift Activity 2- Moves 4 extremities sustained head lift Circulation 2- SBP +/= 20 points of pre-anesthetic level Circulation 2- SBP +/= 20 points of pre-anesthetic level Consciousness 2- Awake and alert oriented x 3 Consciousness 2- Awake and alert oriented x 3 O2 Saturation 2- Able to maintain O2 satruation of 92% on room air O2 Saturation 2- Able to maintain O2 satruation of 92% on room air Respiratory 2- Able to deep breathe and cough well Respiratory 2- Able to deep breathe and cough well Total Score 10 Total Score 10 Contrast Agent: Isovue Diagnostic Contrast: 87 ml Total Contrast: 87 ml Fluoro Dose: 661 mGy Procedure Log Time Note Enter By 03:45 PM Time: 15:44 Phenergan 12.5 mg Intravenous Given by Celia Guaman RN 03:51 PM Case Start 03:51 PM CathStat 03:51 PM Pt arrived to general laborer 2 at 15:51 cedwards 03:51 PM Patient charges- Angio tray pack, Navilyst 3mm J, Pulse Oximetry and ACIST tubing and transducer cedwards 03:51 PM IV Supplies used: J loop Angio Cath. cedwards 03:52 PM Hair removed from procedure site in procedure lab using clippers. Bilateral groin/Right radial prepped with Chloraprep by Dontae Arango RT (R), then patient was draped. Skin intact. cedwards 03:52 PM Physician arrived 15:52 cedwards 03:52 PM Jax and tatyana completed cedwards 03:52 PM Sign in performed according to hospital policy. cedwards 03:52 PM ASA Class CLASS II- Mild systemic disease (i.e. well-controlled diabetes, hypertension, asthma, cigarette smoking) cedwards 03:52 PM Procedure start 15:52 cedwards 03:53 PM Time: 15: Phenergan 12.5 mg Intravenous Given by Celia Guaman RN cedwards :53 PM Vitals capture started with the following parameters, Patient=Adult, Interval=5 min, Initial Mhtuiuze=040 mmHg, Deflation Rate=5 mmHg, Cuff placed on Right Arm 03:56 PM Recorded ECG: HR=87 Condition=Condition 1 03:56 PM Vitals capture started with the following parameters, Patient=Adult, Interval=5 min, Initial Tfkntqtb=353 mmHg, Deflation Rate=5 mmHg, Cuff placed on Right Arm 03:57 PM Time: 15:57 Patient comfortable and pain free: Yes cedwards :57 PM Time: 15:57LOC: 5 = Fully awake and oriented or at pre-proc level cedwards 03:57 PM HR=86 bpm, RLAB=882/79 mmhg, SpO2=98.0 %, Comment=NSR 04:00 PM Pressure channel 1 zeroed. 04:01 PM Time: 16:01 Oxygen on at 2 L/min per nasal cannula by Linda Hall RN cedwards 04:01 PM Time: 16:01 Versed 1 mg Intravenous Given by Linda Hall RN cedwards 04:01 PM Time: 16:01 Fentanyl 50 mcg Intravenous Given by Linda Hall RN cedwards 04:02 PM HR=91 bpm, JBOJ=355/76 mmhg, SpO2=97.0 %, Comment=NSR 04:02 PM Clinical Presentation: Unstable angina cedwards 04:02 PM Time out performed according to hospital policy cedwards 04:03 PM Time: 16:02 0.5 ml Lidocaine 2% to right radial Subcutaneous Given by Meet Hubbard MD, [facility] cedwards 04:03 PM Time: 16:03 Versed 2 mg Intravenous Given by Linda Hall RN cedwards 04:03 PM Time: 16:03 Fentanyl 25 mcg Intravenous Given by Linda Hall RN cedwards 04:04 PM Access obtained by percutaneous puncture. 5/6Fr 11cm Terumo Glidesheath sheath placed in right Femoral artery. [id number] cedwards 04:05 PM Time: 16:05 Patient given 4,000 units Heparin, 200 mcg Nitroglycerin, and 2.5 mg Verapamil Intraarterial by Meet Hubbard MD, [facility]. This is given to reduce risk of vessel spasm and thrombosis. cedwards 04:07 PM 5Fr TIG catheter inserted over the wire [facility] cedwards 04:07 PM HR=95 bpm, TBFL=876/58 mmhg, SpO2=95.0 %, Comment=NSR 04:07 PM LCA angiography performed in multiple views. cedwards 04:10 PM Catheter removed cedwards 04:10 PM 5Fr 3DRC catheter inserted over the wire [id number] cedwards 04:11 PM Catheter removed cedwards 04:11 PM 5Fr MPA1 catheter inserted over the wire [id number] cedwards 04:12 PM NG=913 bpm, GYZD=555/67 mmhg, SpO2=94.0 %, Comment=NSR 04:12 PM Time: 15:57 Patient comfortable and pain free: Yes cedwards 04:12 PM Time: 15:57LOC: 4 = Oriented but drowsy cedwards 04:13 PM RCA angiography performed in multiple views. cedwards 04:14 PM Catheter removed cedwards 04:14 PM Coronary Dominance: Left cedwards 04:14 PM 5Fr Pigtail catheter inserted over the wire [facility] cedwards 04:15 PM Catheter selectively placed in left ventricle cedwards 04:15 PM Bolus angiogram of left Ventricle complete: 10 ml/sec for a total of 20 mls cedwards 04:16 PM Pressure channel 1 zeroed. 04:16 PM Recorded Pressure: LV, XN=820, Condition=Condition 1 (Left Ventricle) LV 79/7/10 04:16 PM Recorded Pressure: LV, Ao, UK=891, Condition=Condition 1 (Left Ventricle) LV 121/30/33, (Aorta) Ao 117/79/94 04:17 PM MB=348 bpm, BTVC=059/67 mmhg, SpO2=95 % 04:18 PM Catheter removed cedwards 04:18 PM Lesion found in LAD 30% cedwards 04:18 PM Procedure completed at 16:18 cedwards 04:19 PM Did you address LINA flow and Dominance? Yes cedwards 04:19 PM Sign out completed: Radiation Dose 660.64 mGy Fluoro Time: 3.6 Isovue 370 - 200ml contrast 87 ml given by Meet Hubbard MD, [facility]. Complications: NoneCardiac Rehab Consult needed: NoConfirmed administered medications: Yes cedwards 04:19 PM Isovue 370 - 200ml,1 Bottle(s) used. cedwards 04:19 PM 12 ml air in Vasc Band. cedwards 04:19 PM Estimated Blood Loss: minimal cedwards 04:19 PM Post ECG NSR cedwards 04:19 PM Post Blood Pressure 128/67 cedwards 04:20 PM 16:20 Post Pulses Rt Radial 2+ cedwards 04:20 PM Information taught Cardiac Cath and Vasc Band cedwards 04:20 PM Education needs Procedure, Plan of Care, and Disease Process cedwards 04:20 PM Learning barriers :None cedwards 04:20 PM Education Methods Verbal cedwards 04:20 PM Education evaluation Able to repeat information cedwards 04:20 PM Plavix, Effient or Brilinta given No cedwards 04:20 PM Delay to floor No cedwards 04:20 PM Complications: None cedwards 04:20 PM Fluoro Time: 3.6 cedwards 04:21 PM Isovue 370 - 200ml contrast [address] Hubbard. cedwards 04:21 PM Radiation Dose 660.64 mGy cedwards 04:24 PM Report given to Kristyn HAYES Pt taken to Room #53. 16:23 cedwards 04:29 PM Patient out of room: 16:29 cedwards Complications Complication None None Hemodynamics Pressures Site Systolic/A Wave Diastolic/V Wave Mean LV 79 7 10 LV 121 30 33 AO 117 79 94 Post Procedure Information Blood Pressure: 128/67 mmHg Rhythm: NSR Post procedural instructions were given Closure Device Time Device Success/Fail 08/16/2017 4:26:00 PM Mechanical Compression Successful Pulses Time Site Pre-Procedure Post-Procedure Note 08/16/2017 3:46:00 PM Bilateral DP & PT 2+ 08/16/2017 3:46:00 PM Rt Radial 2+ 08/16/2017 3:47:00 PM Lt Radial 2+ 4:20:00 PM Rt Radial 2+ Updated by Carlos Eduardo Bob RN on 08/16/2017 4:31:33 PM electronically signed on 08/16/2017 4:35:51 PM with status of Final
[2017-08-16] MEDS: Fenofibrate 54 MG TABLET PO SCH (17:05)
--- NOTE | 2017-08-16 18:22 | Internal Med Progress Note ---
Date of Encounter: 08/16/17 - Assessment and plan (1) Chest pain Current Visit: Yes Status: Acute Qualifiers: Chest pain type: precordial pain Qualified Code(s): R07.2 - Precordial pain (2) Diabetes Current Visit: Yes Status: Chronic Qualifiers: Diabetes mellitus type: type 2 Diabetes mellitus correction insulin use: without correction use Diabetes mellitus complication status: with unspecified complications Qualified Code(s): E11.8 - Type 2 diabetes mellitus with unspecified complications (3) HTN (hypertension) Current Visit: Yes Status: Chronic Qualifiers: Hypertension type: essential hypertension Qualified Code(s): I10 - Essential (primary) hypertension (4) HLD (hyperlipidemia) Current Visit: Yes Status: Chronic Qualifiers: Hyperlipidemia type: mixed hyperlipidemia Qualified Code(s): E78.2 - Mixed hyperlipidemia (5) GERD (gastroesophageal reflux disease) Current Visit: Yes Status: Chronic Qualifiers: Esophagitis presence: esophagitis presence not specified Qualified Code(s) : K21.9 - Gastro-esophageal reflux disease without esophagitis (6) Thoracic aortic aneurysm without rupture Current Visit: Yes Status: Chronic - Time Spent With Patient Total time spent is greater than 50% in coordination of care (as documented) at patient's floor/unit and/or counseling patient: - Subjective Interval history: Patient was seen and assessed at 10:15 AM. She reports continued, intermittent left chest pain, decreasing frequency. She describes it as a squeezing or pressure with nausea, dizziness, diaphoresis. She reports that each episode lasts approximately 10 seconds. She denies any headache or dizziness, no blurred vision. She denies any abdominal pain, nausea, vomiting, diarrhea. No peripheral edema. - Constitutional Vitals: Temp Pulse Resp BP Pulse Ox 97.8 F 98 16 135/81 96 08/16/17 16:45 08/16/17 18:17 08/16/17 18:17 08/16/17 18:17 08/16/17 18:17 General appearance: Present: cooperative, A&O X 3, morbidly obese, no acute distress, answers questions appropriately Internal Medicine: Result - Labs CBC & Chem 7: 08/13/17 16:03 08/14/17 04:00 Consult Discharge Plan - Plan Referrals: Marbin Ruvalcaba MD [Primary Care Provider] - 08/23/17 4:15 pm
--- NOTE | 2017-08-16 18:25 | Discharge Summary ---
- NOTES TO OUTPATIENT PROVIDER Notes to Outpatient Provider: Patient was seen and admitted for chest pain. Stress test was negative, troponins were negative, EKG was sinus rhythm. Echocardiogram showed LVEF 60%, mild LV DD no significant valvular dysfunction. Ascending aorta signs of is at the upper limits of normal, 3-8 cm. She continued chest pain throughout visit, she was taken to the [facility] and found to have lesion in LAD 30%. Cardiology discussed the importance of risk factor modification including increasing exercise, weight loss, aggressive control of cholesterol and diabetes, and hypertension. Triglycerides 1942, cholesterol 358. A1c 7.5% we have encouraged risk factor modification, patient verbalized understanding. Orders not resulted at time of discharge: Pending orders 08/13/17 19:25 NM emily perf SPECT multi [NM] Routine 08/16/17 11:21 CL Cardiac Catheterization [CL] Routine Date of Encounter: 08/16/17 Time of Encounter: 11:30 - Discharge Diagnosis (1) Chest pain Priority: Primary Status: Acute Assessment and Plan: [facility] today, lesion noted to LAD, 30%. Aggressive risk factor modification needed for diabetes, obesity, and HLD. Pt continues to have intermittent chest pain Continue ASA, Lipitor, Tricor, BB, Lisionpril Chest CTA 08/13/17 17:30 IMPRESSION: No evidence of pulmonary embolism or acute pulmonary abnormality. D/ / Chase Meneses MD / Chase Meneses MD Interpreting Provider: Chase Meneses MD Echocardiogram 08/14/17 19:24 Impressions: LVEF 60%. Mild left ventricular diastolic dysfunction. Normal right ventricular structure and function. No significant valvular dysfunction. No pulmonary hypertension. Ascending aorta size upper limits of normal, 3.8cm. Left Ventricular Wall Motion: Rest Echo Findings All wall segments showed normal motion. Findings: Study Quality * Technically adequate exam. ECG Findings * Normal sinus rhythm. Left Ventricle * LVEF 60%. * Mild left ventricular diastolic dysfunction. * Normal LV chamber size, wall thickness and function. Right Ventricle * Normal right ventricular structure and function. Left Atrium * Normal left atrial size. Right Atrium * Normal right atrial size. Aortic Valve * No aortic regurgitation. * No aortic stenosis. * Aortic valve not well visualized. Mitral Valve * No mitral regurgitation. * Normal mitral valve structure. * No mitral stenosis. Tricuspid Valve * Tricuspid valve not well visualized. * Trace tricuspid regurgitation. * Estimated RA pressure is 3 mmHg. * Estimated RVSP is 21 mmHg. * No pulmonary hypertension. Pulmonic Valve * Pulmonic valve is not well visualized. * No pulmonic stenosis. * No pulmonic regurgitation. Pulmonary Artery * Pulmonary artery not well visualized. Aorta * Normally sized aortic root. * Ascending aorta size upper limits of normal, 3.8cm. Pericardium * There is no pericardial effusion present. Interatrial Septum * No evidence of PFO by color Doppler. IVC * Normal IVC dimensions and inspiratory collapse. Qualifiers: Chest pain type: precordial pain Qualified Code(s): R07.2 - Precordial pain (2) Diabetes Priority: Secondary Status: Chronic Assessment and Plan: Uncontrolled. Last A1c was 7.5%. Attempt better glycemic control. Pt could benefit from diabetes education outpatient. Continue home medications. 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 Continue home medications. Qualifiers: Hypertension type: essential hypertension Qualified Code(s): I10 - Essential (primary) hypertension (4) HLD (hyperlipidemia) Priority: Secondary Status: Chronic Assessment and Plan: Triglycerides 1942, cholesterol 358, HDL is 37. Pt and I, as well as pt and cardiology, discussed risk factor modification. Start Tricor and continue Lipitor 40mg qhs Diet modifications and increase exercise. Qualifiers: Hyperlipidemia type: mixed hyperlipidemia Qualified Code(s): E78.2 - Mixed hyperlipidemia (5) GERD (gastroesophageal reflux disease) Priority: Secondary Status: Chronic Assessment and Plan: Continue home medications. Qualifiers: Esophagitis presence: esophagitis presence not specified Qualified Code(s) : K21.9 - Gastro-esophageal reflux disease without esophagitis (6) Thoracic aortic aneurysm without rupture Priority: Secondary Status: Chronic Assessment and Plan: Thoracic aortic aneurysm noted on echocardiogram, ascending aorta size upper limits of normal, 3.8 cm. Follow with vascular. (7) Morbid obesity Priority: Secondary Status: Chronic Assessment and Plan: Chronic. Lifestyle modifications. (8) DVT prophylaxis Priority: Secondary Status: Acute Assessment and Plan: Lovenox Hospital course: Ms. Carpenter is a 51 year old female with past medical history of obesity, hyperlipidemia, hypertension, GERD, type 2 diabetes. Patient was admitted for left chest pain that she described as a squeezing with associated shortness of breath and nausea. She also reports diaphoresis with the pain. Echocardiogram showed preserved ejection fraction and no significant valvular dysfunction, stress test was negative for ischemia or infarct. Troponins were negative. Patient continued to have chest pain and due to her number of risk factors, she was seen by cardiology. LHC was done 08/16/17 with no intervention. Patient is to continue her statin at an increased dose, (fenofibrate, aspirin, beta balwinder , and continue lisinopril 20 mg by mouth daily. Triglycerides elevated at 1942 , cholesterol 358. Patient has a follow-up appointment with primary care, she will need to follow with cardiology as scheduled. Labs and vitals are stable and within normal limits, she is stable and appropriate for discharge. Discharge discussed with: patient - Time Spent with Patient Total time spent providing and/or coordinating discharge services: Less than 30 minutes - Discharge Medications Prescriptions: Fenofibrate [Tricor] 108 mg PO QPM #30 tablet Home Medications: Lisinopril [Zestril] 20 mg PO DAILY 11/09/14 [History] Metformin [Glucophage] 1,000 mg PO BIDWM 11/09/14 [History] Metoprolol [Lopressor] 25 mg PO BID 11/09/14 [History] Aripiprazole [Abilify] 5 mg PO DAILY 02/21/17 [History] Aspirin [Lo-Dose Aspirin EC] 81 mg PO DAILY 02/21/17 [History] Atorvastatin [Lipitor] 40 mg PO HS 02/21/17 [History] Canagliflozin [Invokana] 300 mg PO DAILY 02/21/17 [History] DULoxetine [Cymbalta] 90 mg PO DAILY 02/21/17 [History] Exenatide Microspheres [Bydureon Pen] 2 mg SQ FR 02/21/17 [History] Norethindrone-E.estradiol-Iron [Lo Loestrin Fe 1-10 Tablet] 1 tab PO DAILY 02/21 [History] [place]-3 Acid Ethyl Esters [Lovaza] 1 gm PO DAILY 02/21/17 [History] Omeprazole [PriLOSEC] 20 mg PO DAILY 02/21/17 [History] Triamterene/Hydrochlorothiazid [Dyazide 37.5-25 Capsule] 1 cap PO DAILY [History] Promethazine [Phenergan] 25 mg PO Q8HR PRN #30 tablet 02/24/17 [Rx] HYDROcodone/Acet 5/325 mg [[place] 5-325 mg] 1 tab PO Q8H PRN 08/14/17 [History] Phentermine/Topiramate [Qsymia 7.5 mg-46 mg Capsule] 1 cap PO DAILY 08/14/17 [ History] Fenofibrate [Tricor] 108 mg PO QPM #30 tablet 08/16/17 [Rx] Allergies/Adverse Reactions: 3 Allergy/AdvReac Type Severity Reaction Status Date / Time meloxicam Allergy Hives Verified 08/13/17 15:20 metoclopramide [From Reglan] Allergy Hives Verified 08/13/17 15:20 morphine Allergy Fever Verified 08/13/17 15:20 ondansetron Allergy Hives Verified 08/13/17 15:20 [From Zofran (as hydrochloride)] Date of admission: 08/13/17 18:23 Primary care physician: Marbin Ruvalcaba MD Consults: 08/15/17 14:04 Consult to Cardiology [CONS] Routine Comment: Consulting Provider: Cardiology Palak Reason for Consult: Continued chest pain, left chest pain, intermittent squeezing, /pressure with nausea, dizziness, and diaphoresis. Stress and trops negative, EKG NSR without ischemic changes. CTA chest negative for PE. Time Notified: 14:06 Call Completed: Yes Discharging clinician: Meliza Marcial Anticipated date of discharge: 08/16/17 - Constitutional Vitals: Temp Pulse Resp BP Pulse Ox 97.8 F 98 16 135/81 96 08/16/17 16:45 08/16/17 18:17 08/16/17 18:17 08/16/17 18:17 08/16/17 18:17 General appearance: Present: cooperative, A&O X 3, morbidly obese, pleasant, no acute distress, answers questions appropriately - Head Head exam: Present: atraumatic, normal inspection, normocephalic - Eye Eye exam: Present: normal appearance, conjuntiva pink, sclera anicteric - Neck Neck exam general surgery: Present: supple, trachea midline. Absent: lymphadenopathy, tenderness - Respiratory Respiratory exam: Present: chest wall tenderness, CTAB. Absent: accessory muscle use, rales, respiratory distress, rhonchi, wheezes - Cardiovascular Cardiovascular exam: Present: RRR, +S1, +S2. Absent: diastolic murmur, gallop, rubs, systolic murmur - GI/Abdominal GI/Abdominal exam: Present: normal bowel sounds, soft. Absent: distended, hepatomegaly, tenderness - Extremities Exam Extremities exam: Present: normal capillary refill, normal inspection, warm, radial pulses palpable and symmetrical. Absent: calf tenderness, cyanotic, pedal edema, tenderness - Neurological Exam Neurological exam: Present: alert, oriented X3, no focal deficits. Absent: altered, facial droop, speech deficit - Skin Skin exam: Present: dry, intact, normal color, warm. Absent: rash - Patient Status Disposition: Home, Self-Care Condition: Good Functional capacity at discharge: independent ambulation Overall status at discharge: patient is back to baseline - Discharge Instructions Follow Up With: Marbin Ruvalcaba MD [Primary Care Provider] - 08/23/17 4:15 pm Additional Instructions: Please follow up with Dr. Ruvalcaba as scheduled. Return to ER as needed for any other problems or concerns. Increase your exercise, eat a lower fat/lower calorie diet, and take your medications as directed. Follow with cardiology as scheduled. Take your other home medications as directed and return to your normal activities as tolerated. - Diet and Activity Activity: increase activity as tolerated Diet: low fat, low cholesterol
[2017-08-17] MEDS: *HR* Promethazine 25 MG/ML VIAL IVP PRN ×2 (03:52→10:29)
[2017-08-17] MEDS: *HR* Enoxaparin 40 MG/0.4 ML SYRINGE SQ SCH (06:05)
[2017-08-17] MEDS: Aspirin Enteric Coated 81 MG Tablet PO SCH (08:57)
[2017-08-17] MEDS: Lisinopril 20 MG TABLET PO SCH (08:58)
[2017-08-17] MEDS: *HR* OxyCODONE/APAP 5/325 TABLET PO PRN (08:58)
[2017-08-17] MEDS: ARIPiprazole 5 MG TABLET PO SCH (08:58)
[2017-08-17] MEDS: Insulin LISPRO 300 UNITS/3 ML VIAL SQ SCH (08:59)
[2017-08-17] MEDS ORDERED: Isosorbide MONOnitrate (24 HR) 30 MG TAB.ER.24H PO SCH (11:00)
[2017-08-17 14:02] VITALS: BP 106/66
[2017-08-17] MEDS: Acetaminophen 325 MG TABLET PO PRN (14:03)
--- NOTE | 2017-08-17 14:19 | Internal Med Progress Note ---
Date of Encounter: 08/17/17 Time of Encounter: 11:15 - Assessment and plan (1) Chest pain Current Visit: Yes Status: Acute Assessment and plan: Resolved with the addition of Imdur. Vitals are stable, blood pressure tolerated well. Follow up with cardiology after discharge Chest CTA 08/13/17 17:30 IMPRESSION: No evidence of pulmonary embolism or acute pulmonary abnormality. D/ / Chase Meneses MD / Chase Meneses MD Interpreting Provider: Chase Meneses MD Echocardiogram 08/14/17 19:24 Impressions: LVEF 60%. Mild left ventricular diastolic dysfunction. Normal right ventricular structure and function. No significant valvular dysfunction. No pulmonary hypertension. Ascending aorta size upper limits of normal, 3.8cm. Left Ventricular Wall Motion: Rest Echo Findings All wall segments showed normal motion. Findings: Study Quality * Technically adequate exam. ECG Findings * Normal sinus rhythm. Left Ventricle * LVEF 60%. * Mild left ventricular diastolic dysfunction. * Normal LV chamber size, wall thickness and function. Right Ventricle * Normal right ventricular structure and function. Left Atrium * Normal left atrial size. Right Atrium * Normal right atrial size. Aortic Valve * No aortic regurgitation. * No aortic stenosis. * Aortic valve not well visualized. Mitral Valve * No mitral regurgitation. * Normal mitral valve structure. * No mitral stenosis. Tricuspid Valve * Tricuspid valve not well visualized. * Trace tricuspid regurgitation. * Estimated RA pressure is 3 mmHg. * Estimated RVSP is 21 mmHg. * No pulmonary hypertension. Pulmonic Valve * Pulmonic valve is not well visualized. * No pulmonic stenosis. * No pulmonic regurgitation. Pulmonary Artery * Pulmonary artery not well visualized. Aorta * Normally sized aortic root. * Ascending aorta size upper limits of normal, 3.8cm. Pericardium * There is no pericardial effusion present. Interatrial Septum * No evidence of PFO by color Doppler. IVC * Normal IVC dimensions and inspiratory collapse. Qualifiers: Chest pain type: precordial pain Qualified Code(s): R07.2 - Precordial pain (2) Diabetes Current Visit: Yes Status: Chronic Assessment and plan: Uncontrolled. Continue home medications. 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 Stable. Continue home medications. Qualifiers: Hypertension type: essential hypertension Qualified Code(s): I10 - Essential (primary) hypertension (4) HLD (hyperlipidemia) Current Visit: Yes Status: Chronic Assessment and plan: Continue Tricor and Lipitor 40mg qhs Diet modifications and increase exercise. Qualifiers: Hyperlipidemia type: mixed hyperlipidemia Qualified Code(s): E78.2 - Mixed hyperlipidemia (5) GERD (gastroesophageal reflux disease) Current Visit: Yes Status: Chronic Assessment and plan: Continue home medications. Stable Qualifiers: Esophagitis presence: esophagitis presence not specified Qualified Code(s) : K21.9 - Gastro-esophageal reflux disease without esophagitis (6) Thoracic aortic aneurysm without rupture Current Visit: Yes Status: Chronic Assessment and plan: Thoracic aortic aneurysm noted on echocardiogram, ascending aorta size upper limits of normal, 3.8 cm. Follow with vascular, PCP after discharge (7) Morbid obesity Current Visit: Yes Status: Chronic Assessment and plan: Chronic. Lifestyle modifications. Education discussion completed. (8) DVT prophylaxis Current Visit: Yes Status: Acute Assessment and plan: Lovenox SQ - Time Spent With Patient Total time spent is greater than 50% in coordination of care (as documented) at patient's floor/unit and/or counseling patient: less than 15 minutes - Subjective Interval history: Patient was seen and assessed at bedside 11:15 AM. She states that she is still having intermittent chest pain. Imdur was started. She denies any headache, nausea, vomiting, diarrhea, abdominal pain, or shortness of breath. Patient denied discussed her return to work. I recommended she return to work for half days until she follows up with primary care on August 25. Patient is agreeable. - Constitutional Vitals: Temp Pulse Resp BP Pulse Ox 98.2 F 96 18 106/66 98 08/17/17 14:01 08/17/17 14:01 08/17/17 14:01 08/17/17 14:01 08/17/17 14:01 General appearance: Present: cooperative, A&O X 3, morbidly obese, pleasant, no acute distress, answers questions appropriately - Head Head exam: Present: atraumatic, normal inspection, normocephalic - Eye Eye exam: Present: normal appearance, conjuntiva pink, sclera anicteric - Neck Neck exam general surgery: Present: supple, trachea midline. Absent: lymphadenopathy - Respiratory Respiratory exam: Present: CTAB. Absent: accessory muscle use, rales, rhonchi, wheezes - Cardiovascular Cardiovascular exam: Present: RRR, +S1, +S2. Absent: diastolic murmur, gallop, rubs, systolic murmur - GI/Abdominal GI/Abdominal exam: Present: normal bowel sounds, soft. Absent: distended, tenderness - Extremities Exam Extremities exam: Present: normal capillary refill, normal inspection, warm, radial pulses palpable and symmetrical. Absent: calf tenderness, cyanotic, pedal edema, tenderness - Neurological Exam Neurological exam: Present: alert, CN II-XII intact, oriented X3, no focal deficits. Absent: facial droop, speech deficit - Skin Skin exam: Present: dry, intact, normal color, warm. Absent: rash Internal Medicine: Result - Labs CBC & Chem 7: 08/13/17 16:03 08/14/17 04:00 Consult Discharge Plan - Plan Additional Instructions: Please follow up with Dr. Ruvalcaba as scheduled. Return to ER as needed for any other problems or concerns. Increase your exercise, eat a lower fat/lower calorie diet, and take your medications as directed. Follow with cardiology as scheduled. Take your other home medications as directed and return to your normal activities as tolerated. Referrals: Marbin Ruvalcaba MD [Primary Care Provider] - 08/23/17 4:15 pm Prescriptions: Fenofibrate [Tricor] 108 mg PO QPM #30 tablet
== END 2017-08-17 15:33 | disposition home or self-care (01) ==
LOC: 3BNU 15:13 → EMEROO 15:13 → SUATTDRO 18:23 → 3BNU 19:37
PROVIDERS: ADMIT Internal Medicine; ATTEND Registered Nurse

== ENCOUNTER 2019-07-05 21:01 | Inpatient (IN) ==
[2019-07-05 21:30] LABS: Basophils % 0.4 %; Eosinophils # 0.1 K/mcL (0.0-0.6); Eosinophils % 0.7 %; Hematocrit 35.7 % (35.3-44.9); Hemoglobin 11.5 g/dL (11.5-15.4); Immature Granulocytes % 0.5 % (0-4); Lymphocytes # 1.5 K/mcL (0.6-4.6); Lymphocytes % 12.9 %; Mean Corpuscular HGB Conc 32.2 g/dL (31.6-35.5); Mean Corpuscular Hemoglobin 27.1 pg (28.0-33.3); Mean Corpuscular Volume 84.2 fL (83.0-100.0); Mean Platelet Volume 10.8 fL (9.4-12.4); Monocytes # 0.9 K/mcL (0.0-1.3); Monocytes % 7.7 %; Neutrophils # 8.9 K/mcL (1.6-8.9); Platelet Count 261 K/mcL (140-400); Red Blood Count 4.24 M/mcL (3.82-4.97); Segmented Neutrophils % 77.8 %; White Blood Count 11.4 K/mcL (4.3-11.1)
[2019-07-05 21:34] LABS: INR 1.1; Prothrombin Time 12.4 Seconds (9.4-12.1)
[2019-07-05 21:41] LABS: Bilirubin,Urine Negative (Negative); Blood,Urine Negative (Negative); Clarity,Urine Clear (Clear); Color,Urine Yellow (Yellow); Glucose,Urine (UA) >=1000 mg/dL (Normal); Ketones,Urine Trace mg/dL (Negative); Leukocyte Esterase,Urine Negative (Negative); Nitrite,Urine Negative (Negative); Protein,Urine 30 mg/dL (Neg-Trace); Specific Gravity,Urine > 1.030 (1.010-1.025); Urobilinogen,Urine Normal (Normal)
[2019-07-05] MEDS ORDERED: *HR* Promethazine 25 MG/ML VIAL IVP ONE (21:43)
[2019-07-05] MEDS ORDERED: *HR* HYDROmorphone (PF) 1 MG/ML SYRINGE IVP ONE ×2 (21:43→23:55)
[2019-07-05 21:44] LABS: Bacteria,Urine None Seen per hpf (None-Few); Hyaline Casts,Urine None Seen per lpf (None-Few); RBC,Urine 0-3 per hpf (0-3); Squamous Epithelial Cell,Urine None Seen per lpf (None-Few); WBC,Urine 0-3 per hpf (0-3)
[2019-07-05] MEDS ORDERED: 0.9 % Sodium Chloride 1,000 ML IVC ONE (21:44)
[2019-07-05 21:56] LABS: Alanine Aminotransferase 11 Units/L (7-52); Albumin 3.6 g/dL (3.5-5.7); Albumin/Globulin Ratio 0.9 (1.1-2.2); Alkaline Phosphatase 136 Units/L (34-104); Aspartate Amino Transferase 9 Units/L (13-39); BUN/Creatinine Ratio 28 (6-26); Bilirubin,Indirect 0.6 mg/dL (0.0-1.0); Bilirubin,Total 0.6 mg/dL (0.3-1.0); Blood Urea Nitrogen 19 mg/dL (6-20); Calcium 9.5 mg/dL (8.6-10.3); Carbon Dioxide 24 mEq/L (23-29); Chloride 83 mEq/L (98-107); Globulin 3.8 g/dL (2.4-3.5); Glucose 577 mg/dL (70-105); Lipase 328 Units/L (11-82); Osmolality,Calculated 277 (280-300); Sodium 119 mEq/L (136-145); Total Protein 7.4 g/dL (6.4-8.9); Troponin I < 0.03 ng/mL (< 0.04); eGFR For African Americans > 60 (> 60); eGFR For Non-African Americans > 60 (> 60)
[2019-07-05] MEDS ORDERED: Isovue-370 500 ML BOTTLE IVP ONE (21:59)
[2019-07-05 22:18] LABS: VBG HCO3 27 mEq/L (21-27); VBG PCO2 41 mmHg (41-51); VBG PH 7.43 pH Units (7.32-7.42); VBG PO2 73 mmHg (25-50)
[2019-07-05] MEDS ORDERED: Insulin LISPRO 300 UNITS/3 ML VIAL SQ ONE (22:45)
[2019-07-05] MEDS ORDERED: Piperacillin/Tazobactam 3.375 GM in Water for inj. (sterile) 20 ML IVP ONE (22:47)
[2019-07-05] MEDS ORDERED: Insulin Human Regular 100 UNIT in 0.9 % Sodium Chloride 100 ML IVC SCH (23:45)
[2019-07-06] MEDS ORDERED: Naloxone 0.4 MG/ML INJ IVP PRN (02:03)
[2019-07-06] MEDS ORDERED: D5% in 0.45% NACL 1,000 ML IVC PRN (02:16)
[2019-07-06] MEDS ORDERED: D5% in 0.45% NACL w KCl 20 MEQ/1,000 ML MLS IVC PRN (02:16)
[2019-07-06] MEDS ORDERED: *HR* Dextrose 50 % in Water (Syg) 50 ML SYRINGE IVP PRN ×2 (02:16→10:09)
[2019-07-06] MEDS ORDERED: Insulin LISPRO 300 UNITS/3 ML VIAL SQ PRN (02:16)
[2019-07-06] MEDS ORDERED: 0.9 % Sodium Chloride 1,000 ML IVC SCH ×3 (02:30→05:11)
[2019-07-06] MEDS ORDERED: 0.45 % Sodium Chloride w/KCl 20 MEQ/1,000 ML MLS IVC SCH (02:30)
[2019-07-06] MEDS ORDERED: 0.9 % Sodium Chloride w KCl 20 MEQ/1,000 ML MLS IVC SCH (02:30)
[2019-07-06 02:37] LABS: BUN/Creatinine Ratio 27 (6-26); Blood Urea Nitrogen 16 mg/dL (6-20); Calcium 8.9 mg/dL (8.6-10.3); Carbon Dioxide 23 mEq/L (23-29); Chloride 91 mEq/L (98-107); Glucose 425 mg/dL (70-105); Osmolality,Calculated 279 (280-300); Potassium 3.8 mEq/L (3.5-5.1); Sodium 125 mEq/L (136-145); eGFR For African Americans > 60 (> 60); eGFR For Non-African Americans > 60 (> 60)
[2019-07-06] MEDS: 0.45 % Sodium Chloride w/KCl 20 MEQ/1,000 ML MLS IVC SCH ×3 (02:56→10:05)
[2019-07-06 03:05] LABS: Basophils % 0.3 %; Eosinophils # 0.1 K/mcL (0.0-0.6); Eosinophils % 0.8 %; Hematocrit 32.8 % (35.3-44.9); Hemoglobin 10.7 g/dL (11.5-15.4); Immature Granulocytes % 0.4 % (0-4); Lymphocytes # 1.7 K/mcL (0.6-4.6); Lymphocytes % 16.6 %; Mean Corpuscular HGB Conc 32.6 g/dL (31.6-35.5); Mean Corpuscular Hemoglobin 27.6 pg (28.0-33.3); Mean Corpuscular Volume 84.5 fL (83.0-100.0); Mean Platelet Volume 10.7 fL (9.4-12.4); Monocytes # 0.7 K/mcL (0.0-1.3); Monocytes % 6.7 %; Neutrophils # 7.5 K/mcL (1.6-8.9); Platelet Count 245 K/mcL (140-400); Red Blood Count 3.88 M/mcL (3.82-4.97); Segmented Neutrophils % 75.2 %
[2019-07-06] MEDS ORDERED: *HR* HYDROmorphone (PF) 1 MG/ML SYRINGE IVP PRN (03:07)
[2019-07-06 03:22] LABS: BUN/Creatinine Ratio 27 (6-26); Blood Urea Nitrogen 16 mg/dL (6-20); Carbon Dioxide 23 mEq/L (23-29); Chloride 91 mEq/L (98-107); Glucose 391 mg/dL (70-105); Osmolality,Calculated 277 (280-300); Potassium 3.6 mEq/L (3.5-5.1); Sodium 125 mEq/L (136-145); eGFR For African Americans > 60 (> 60); eGFR For Non-African Americans > 60 (> 60)
[2019-07-06] MEDS: *HR* HYDROmorphone (PF) 1 MG/ML SYRINGE IVP PRN ×5 (03:36→21:57)
[2019-07-06] MEDS: *HR* Promethazine 25 MG/ML VIAL IVP PRN ×2 (03:36→18:09)
[2019-07-06] MEDS: *HR* Heparin 5,000 UNIT/ML VIAL SQ SCH ×3 (05:09→23:09)
[2019-07-06] MEDS ORDERED: 0.45 % Sodium Chloride w/KCl 20 MEQ/1,000 ML MLS IVC PRN (05:16)
[2019-07-06] MEDS ORDERED: 0.9 % Sodium Chloride w KCl 20 MEQ/1,000 ML MLS IVC PRN (05:16)
[2019-07-06] MEDS ORDERED: 0.9 % Sodium Chloride 1,000 ML IVC PRN ×2 (05:16)
[2019-07-06 05:48] LABS: BUN/Creatinine Ratio 28 (6-26); Blood Urea Nitrogen 16 mg/dL (6-20); Calcium 8.6 mg/dL (8.6-10.3); Carbon Dioxide 23 mEq/L (23-29); Chloride 92 mEq/L (98-107); Glucose 254 mg/dL (70-105); Osmolality,Calculated 272 (280-300); Potassium 3.8 mEq/L (3.5-5.1); Sodium 126 mEq/L (136-145); eGFR For African Americans > 60 (> 60); eGFR For Non-African Americans > 60 (> 60)
[2019-07-06 05:49] LABS: Basophils % 0.3 %; Hemoglobin 10.3 g/dL (11.5-15.4); Red Cell Distribution Width 14.2 % (11.5-14.5)
[2019-07-06 05:51] LABS: Eosinophils # 0.1 K/mcL (0.0-0.6); Hematocrit 32.9 % (35.3-44.9); Immature Granulocytes % 0.4 % (0-4); Immature Platelets 13.8 % (1.1-6.1); Lymphocytes # 1.3 K/mcL (0.6-4.6); Lymphocytes % 12.1 %; Mean Corpuscular HGB Conc 31.3 g/dL (31.6-35.5); Mean Corpuscular Hemoglobin 26.5 pg (28.0-33.3); Mean Corpuscular Volume 84.8 fL (83.0-100.0); Mean Platelet Volume 11.3 fL (9.4-12.4); Monocytes # 0.7 K/mcL (0.0-1.3); Monocytes % 6.2 %; Neutrophils # 8.5 K/mcL (1.6-8.9); Platelet Count 184 K/mcL (140-400); Red Blood Count 3.88 M/mcL (3.82-4.97); White Blood Count 10.6 K/mcL (4.3-11.1)
[2019-07-06 05:56] LABS: Platelet Estimate Normal (Normal)
[2019-07-06 06:02] LABS: Chol/HDL Ratio 25.9 (0-4.9); Cholesterol 802 mg/dL (< 200); HDL Cholesterol 31 mg/dL (40-59); Triglycerides 2665 mg/dL (< 150)
[2019-07-06] MEDS ORDERED: Insulin Human Regular 100 UNIT in 0.9 % Sodium Chloride 100 ML IVC SCH (06:15)
[2019-07-06 07:53] LABS: Estimated Average Glucose 338 mg/dl
[2019-07-06] MEDS: PHENTERMINE PO SCH (08:50)
[2019-07-06] MEDS: TOPIRAMATE PO SCH (08:50)
[2019-07-06] MEDS: ARIPiprazole 5 MG TABLET PO SCH (08:50)
[2019-07-06] MEDS: lisinopriL 20 MG TABLET PO SCH (08:58)
[2019-07-06] MEDS: Isosorbide MONOnitrate (24 HR) 30 MG TAB.ER.24H PO SCH (08:58)
[2019-07-06] MEDS: Aspirin Enteric Coated 81 MG Tablet PO SCH (08:58)
[2019-07-06] MEDS: Insulin Human Regular 100 UNIT in 0.9 % Sodium Chloride 100 ML IVC SCH (10:45)
[2019-07-06] MEDS: Piperacillin/Tazobactam 3.375 GM in 0.9 % Sodium Chloride Mini Bag 100 ML IVPB SCH ×3 (12:30→23:08)
[2019-07-06] MEDS: Fenofibrate 54 MG TABLET PO SCH (18:02)
[2019-07-07] MEDS: 0.45 % Sodium Chloride w/KCl 20 MEQ/1,000 ML MLS IVC SCH (01:57)
[2019-07-07] MEDS: *HR* Heparin 5,000 UNIT/ML VIAL SQ SCH ×3 (04:31→20:39)
[2019-07-07] MEDS: *HR* HYDROmorphone (PF) 1 MG/ML SYRINGE IVP PRN ×2 (04:31→19:14)
[2019-07-07 06:15] LABS: INR 1.1; Prothrombin Time 12.8 Seconds (9.4-12.1)
[2019-07-07 06:23] LABS: Alanine Aminotransferase 8 Units/L (7-52); Alkaline Phosphatase 110 Units/L (34-104); Aspartate Amino Transferase 11 Units/L (13-39); BUN/Creatinine Ratio 17 (6-26); Bilirubin,Total 0.4 mg/dL (0.3-1.0); Blood Urea Nitrogen 18 mg/dL (6-20); Calcium 7.6 mg/dL (8.6-10.3); Carbon Dioxide 19 mEq/L (23-29); Chloride 95 mEq/L (98-107); Glucose 205 mg/dL (70-105); Osmolality,Calculated 268 (280-300); Phosphorous 2.9 mg/dL (2.7-4.5); Potassium 4.3 mEq/L (3.5-5.1); Sodium 125 mEq/L (136-145); eGFR For African Americans > 60 (> 60); eGFR For Non-African Americans 53 (> 60)
[2019-07-07] MEDS: Isosorbide MONOnitrate (24 HR) 30 MG TAB.ER.24H PO SCH (08:22)
[2019-07-07] MEDS: Aspirin Enteric Coated 81 MG Tablet PO SCH (08:23)
[2019-07-07] MEDS: lisinopriL 20 MG TABLET PO SCH (08:23)
[2019-07-07] MEDS: Piperacillin/Tazobactam 3.375 GM in 0.9 % Sodium Chloride Mini Bag 100 ML IVPB SCH ×3 (08:23→23:13)
[2019-07-07] MEDS: ARIPiprazole 5 MG TABLET PO SCH (08:24)
[2019-07-07] MEDS: PHENTERMINE PO SCH (08:25)
[2019-07-07] MEDS: TOPIRAMATE PO SCH (08:25)
[2019-07-07] MEDS: 0.9 % Sodium Chloride 1,000 ML IVC SCH ×2 (09:56→17:15)
[2019-07-07] MEDS: Insulin Human Regular 100 UNIT in 0.9 % Sodium Chloride 100 ML IVC SCH (10:00)
[2019-07-07] MEDS ORDERED: Calcium Gluconate 1gm/50mL 1 GM/50 ML BAG IVPB ONE (10:31)
[2019-07-07] MEDS: *HR* Promethazine 25 MG/ML VIAL IVP PRN ×2 (10:34→22:23)
[2019-07-07] MEDS: Acetaminophen 325 MG TABLET PO PRN ×2 (12:31→20:39)
[2019-07-07] MEDS: Fenofibrate 54 MG TABLET PO SCH (17:15)
[2019-07-08] MEDS: 0.9 % Sodium Chloride 1,000 ML IVC SCH ×2 (01:30→12:31)
[2019-07-08] MEDS: *HR* HYDROmorphone (PF) 1 MG/ML SYRINGE IVP PRN ×4 (01:53→21:20)
[2019-07-08] MEDS: *HR* Heparin 5,000 UNIT/ML VIAL SQ SCH ×3 (04:16→21:11)
[2019-07-08 05:25] LABS: Basophils % 0.2 %; Eosinophils # 0.2 K/mcL (0.0-0.6); Eosinophils % 1.2 %; Hematocrit 29.3 % (35.3-44.9); Immature Granulocytes % 1.5 % (0-4); Lymphocytes # 1.4 K/mcL (0.6-4.6); Lymphocytes % 11.2 %; Mean Corpuscular HGB Conc 30.7 g/dL (31.6-35.5); Mean Corpuscular Hemoglobin 26.5 pg (28.0-33.3); Mean Corpuscular Volume 86.4 fL (83.0-100.0); Mean Platelet Volume 10.4 fL (9.4-12.4); Monocytes # 0.9 K/mcL (0.0-1.3); Monocytes % 7.1 %; Neutrophils # 10.1 K/mcL (1.6-8.9); Platelet Count 277 K/mcL (140-400); Red Blood Count 3.39 M/mcL (3.82-4.97); Red Cell Distribution Width 14.6 % (11.5-14.5); Segmented Neutrophils % 78.8 %; White Blood Count 12.9 K/mcL (4.3-11.1)
[2019-07-08 05:38] LABS: Calcium 7.4 mg/dL (8.6-10.3); Magnesium 1.5 mg/dL (1.6-2.6); Phosphorous 3.9 mg/dL (2.7-4.5); Potassium 4.4 mEq/L (3.5-5.1)
[2019-07-08] MEDS: Acetaminophen 325 MG TABLET PO PRN (05:50)
[2019-07-08] MEDS: Piperacillin/Tazobactam 3.375 GM in 0.9 % Sodium Chloride Mini Bag 100 ML IVPB SCH (08:05)
[2019-07-08] MEDS: Aspirin Enteric Coated 81 MG Tablet PO SCH (08:07)
[2019-07-08] MEDS: ARIPiprazole 5 MG TABLET PO SCH (08:07)
[2019-07-08] MEDS: Isosorbide MONOnitrate (24 HR) 30 MG TAB.ER.24H PO SCH (08:39)
[2019-07-08] MEDS: Insulin Human Regular 100 UNIT in 0.9 % Sodium Chloride 100 ML IVC SCH (08:40)
[2019-07-08] MEDS ORDERED: Calcium Gluconate 1gm/50mL 1 GM/50 ML BAG IVPB ONE (08:49)
[2019-07-08] MEDS ORDERED: Insulin Human Regular 100 UNIT in 0.9 % Sodium Chloride 100 ML IVC SCH ×3 (14:27→21:06)
[2019-07-08] MEDS ORDERED: D5% in 0.9% NACL 1,000 ML IVC SCH (14:30)
[2019-07-08] MEDS: Fenofibrate 54 MG TABLET PO SCH (16:22)
[2019-07-08] MEDS: D5% in 0.9% NACL 1,000 ML IVC SCH ×2 (18:02→23:22)
[2019-07-08] MEDS: *HR* Promethazine 25 MG/ML VIAL IVP PRN (19:25)
[2019-07-08] MEDS ORDERED: *HR* Dextrose 50 % in Water (Syg) 50 ML SYRINGE IVP ONE (20:49)
[2019-07-09] MEDS: *HR* Dextrose 50 % in Water (Syg) 50 ML SYRINGE IVP PRN ×3 (02:12→07:04)
[2019-07-09] MEDS: *HR* HYDROmorphone (PF) 1 MG/ML SYRINGE IVP PRN ×3 (02:17→10:00)
[2019-07-09] MEDS ORDERED: D10% in Water 500 ML IVC SCH ×3 (03:45→14:11)
[2019-07-09 03:54] LABS: Basophils % 0.3 %; Eosinophils # 0.1 K/mcL (0.0-0.6); Eosinophils % 0.8 %; Hematocrit 28.1 % (35.3-44.9); Hemoglobin 8.6 g/dL (11.5-15.4); Immature Granulocytes % 0.9 % (0-4); Lymphocytes % 8.9 %; Mean Corpuscular HGB Conc 30.6 g/dL (31.6-35.5); Mean Corpuscular Hemoglobin 27.2 pg (28.0-33.3); Mean Corpuscular Volume 88.9 fL (83.0-100.0); Mean Platelet Volume 10.3 fL (9.4-12.4); Monocytes # 0.8 K/mcL (0.0-1.3); Monocytes % 6.7 %; Neutrophils # 9.7 K/mcL (1.6-8.9); Platelet Count 292 K/mcL (140-400); Red Blood Count 3.16 M/mcL (3.82-4.97); Red Cell Distribution Width 14.5 % (11.5-14.5); Segmented Neutrophils % 82.4 %; White Blood Count 11.7 K/mcL (4.3-11.1)
[2019-07-09 04:10] LABS: BUN/Creatinine Ratio 14 (6-26); Blood Urea Nitrogen 16 mg/dL (6-20); Calcium 7.5 mg/dL (8.6-10.3); Carbon Dioxide 19 mEq/L (23-29); Chloride 103 mEq/L (98-107); Glucose 69 mg/dL (70-105); Magnesium 1.8 mg/dL (1.6-2.6); Osmolality,Calculated 274 (280-300); Phosphorous 3.3 mg/dL (2.7-4.5); Potassium 3.5 mEq/L (3.5-5.1); Sodium 132 mEq/L (136-145); eGFR For African Americans > 60 (> 60); eGFR For Non-African Americans 50 (> 60)
[2019-07-09] MEDS: *HR* Heparin 5,000 UNIT/ML VIAL SQ SCH ×3 (06:18→20:24)
[2019-07-09] MEDS: Isosorbide MONOnitrate (24 HR) 30 MG TAB.ER.24H PO SCH (08:22)
[2019-07-09] MEDS: Aspirin Enteric Coated 81 MG Tablet PO SCH (08:22)
[2019-07-09] MEDS ORDERED: D10% in Water 500 ML IV SOLUTION IVC SCH ×2 (08:45→10:45)
[2019-07-09 09:52] LABS: BUN/Creatinine Ratio 15 (6-26); Blood Urea Nitrogen 14 mg/dL (6-20); Calcium 7.7 mg/dL (8.6-10.3); Carbon Dioxide 19 mEq/L (23-29); Chloride 104 mEq/L (98-107); Glucose 78 mg/dL (70-105); Osmolality,Calculated 277 (280-300); Potassium 3.6 mEq/L (3.5-5.1); Sodium 134 mEq/L (136-145); eGFR For African Americans > 60 (> 60); eGFR For Non-African Americans > 60 (> 60)
[2019-07-09] MEDS ORDERED: *HR* Dextrose 50 % in Water (Syg) 50 ML SYRINGE IVP PRN (10:04)
[2019-07-09] MEDS ORDERED: Insulin Human Regular 100 UNIT in 0.9 % Sodium Chloride 100 ML IVC SCH ×2 (10:04→13:44)
[2019-07-09] MEDS: Acetaminophen 325 MG TABLET PO PRN ×2 (11:17→20:23)
[2019-07-09] MEDS: *HR* OxyCODONE Immed Rel 5 MG TABLET PO PRN ×2 (13:20→20:23)
[2019-07-09] MEDS: *HR* Promethazine 25 MG/ML VIAL IVP PRN ×2 (13:21→23:25)
[2019-07-09] MEDS: Insulin Human Regular 100 UNIT in 0.9 % Sodium Chloride 100 ML IVC SCH ×3 (14:23→23:22)
[2019-07-09] MEDS: D10% in Water 500 ML IVC SCH (15:35)
[2019-07-09] MEDS: Fenofibrate 54 MG TABLET PO SCH (16:19)
[2019-07-10] MEDS: D10% in Water 500 ML IVC SCH ×2 (03:09→06:41)
[2019-07-10 03:22] LABS: BUN/Creatinine Ratio 14 (6-26); Blood Urea Nitrogen 11 mg/dL (6-20); Calcium 8.1 mg/dL (8.6-10.3); Carbon Dioxide 17 mEq/L (23-29); Chloride 107 mEq/L (98-107); Glucose 123 mg/dL (70-105); Magnesium 1.6 mg/dL (1.6-2.6); Osmolality,Calculated 279 (280-300); Phosphorous 2.5 mg/dL (2.7-4.5); Potassium 4.5 mEq/L (3.5-5.1); Sodium 134 mEq/L (136-145); Triglycerides 501 mg/dL (< 150); eGFR For African Americans > 60 (> 60); eGFR For Non-African Americans > 60 (> 60)
[2019-07-10 03:28] LABS: Basophils # 0.1 K/mcL (0.0-0.2); Basophils % 0.4 %; Eosinophils # 0.1 K/mcL (0.0-0.6); Eosinophils % 0.8 %; Hematocrit 28.7 % (35.3-44.9); Hemoglobin 8.9 g/dL (11.5-15.4); Immature Granulocytes % 2.3 % (0-4); Lymphocytes % 8.4 %; Mean Corpuscular Hemoglobin 26.6 pg (28.0-33.3); Mean Corpuscular Volume 85.9 fL (83.0-100.0); Mean Platelet Volume 10.6 fL (9.4-12.4); Monocytes # 1.1 K/mcL (0.0-1.3); Monocytes % 9.9 %; Platelet Count 318 K/mcL (140-400); Red Blood Count 3.34 M/mcL (3.82-4.97); Segmented Neutrophils % 78.2 %; White Blood Count 11.4 K/mcL (4.3-11.1)
[2019-07-10] MEDS: *HR* OxyCODONE Immed Rel 5 MG TABLET PO PRN ×4 (05:32→23:55)
[2019-07-10] MEDS: *HR* Heparin 5,000 UNIT/ML VIAL SQ SCH ×3 (05:33→20:44)
[2019-07-10] MEDS: Insulin Human Regular 100 UNIT in 0.9 % Sodium Chloride 100 ML IVC SCH (07:30)
[2019-07-10] MEDS: Aspirin Enteric Coated 81 MG Tablet PO SCH (07:53)
[2019-07-10] MEDS: Isosorbide MONOnitrate (24 HR) 30 MG TAB.ER.24H PO SCH (07:53)
[2019-07-10] MEDS: Gabapentin 300 MG CAPSULE PO SCH ×3 (09:56→20:07)
[2019-07-10] MEDS: Insulin DETEMIR 100 UNIT/ML X5UNITS SQ SCH (11:00)
[2019-07-10] MEDS ORDERED: Dextrose Gel 15 GM/37.5 ML TUBE PO PRN ×4 (14:32→14:35)
[2019-07-10] MEDS ORDERED: *HR* Dextrose 50 % in Water (Syg) 50 ML SYRINGE IVP PRN ×2 (14:32→14:35)
[2019-07-10] MEDS ORDERED: D5% in Water 1,000 ML IVC PRN ×2 (14:32→14:35)
[2019-07-10] MEDS: Insulin LISPRO 300 UNITS/3 ML VIAL SQ SCH (16:40)
[2019-07-10] MEDS: Fenofibrate 54 MG TABLET PO SCH (16:41)
[2019-07-10] MEDS ORDERED: *HR* HYDROmorphone (PF) 1 MG/ML SYRINGE IVP ONE (20:29)
[2019-07-10] MEDS ORDERED: Insulin LISPRO 300 UNITS/3 ML VIAL SQ SCH (21:00)
[2019-07-11 02:18] LABS: VBG HCO3 22 mEq/L (21-27); VBG PCO2 41 mmHg (41-51); VBG PH 7.34 pH Units (7.32-7.42); VBG PO2 74 mmHg (25-50)
[2019-07-11 02:19] LABS: Basophils % 0.3 %; Eosinophils # 0.1 K/mcL (0.0-0.6); Eosinophils % 1.1 %; Hematocrit 27.9 % (35.3-44.9); Hemoglobin 8.5 g/dL (11.5-15.4); Immature Granulocytes % 4.8 % (0-4); Lymphocytes # 1.4 K/mcL (0.6-4.6); Lymphocytes % 12.7 %; Mean Corpuscular HGB Conc 30.5 g/dL (31.6-35.5); Mean Corpuscular Hemoglobin 26.8 pg (28.0-33.3); Mean Platelet Volume 9.4 fL (9.4-12.4); Monocytes # 1.1 K/mcL (0.0-1.3); Neutrophils # 7.6 K/mcL (1.6-8.9); Platelet Count 402 K/mcL (140-400); Red Blood Count 3.17 M/mcL (3.82-4.97); Red Cell Distribution Width 14.7 % (11.5-14.5); Segmented Neutrophils % 71.1 %; White Blood Count 10.7 K/mcL (4.3-11.1)
[2019-07-11 02:38] LABS: BUN/Creatinine Ratio 12 (6-26); Blood Urea Nitrogen 9 mg/dL (6-20); Calcium 8.6 mg/dL (8.6-10.3); Carbon Dioxide 20 mEq/L (23-29); Chloride 101 mEq/L (98-107); Magnesium 1.4 mg/dL (1.6-2.6); Phosphorous 2.8 mg/dL (2.7-4.5); Sodium 130 mEq/L (136-145); eGFR For African Americans > 60 (> 60); eGFR For Non-African Americans > 60 (> 60)
[2019-07-11 03:08] LABS: Glucose 281 mg/dL (70-105); Osmolality,Calculated 279 (280-300)
[2019-07-11] MEDS: *HR* Promethazine 25 MG/ML VIAL IVP PRN (04:23)
[2019-07-11] MEDS: *HR* Heparin 5,000 UNIT/ML VIAL SQ SCH (05:42)
[2019-07-11] MEDS: Insulin LISPRO 300 UNITS/3 ML VIAL SQ SCH ×2 (07:43→11:58)
[2019-07-11] MEDS: Gabapentin 300 MG CAPSULE PO SCH (09:20)
[2019-07-11] MEDS: Aspirin Enteric Coated 81 MG Tablet PO SCH (09:20)
[2019-07-11] MEDS: Isosorbide MONOnitrate (24 HR) 30 MG TAB.ER.24H PO SCH (09:21)
[2019-07-11] MEDS: Insulin DETEMIR 100 UNIT/ML X5UNITS SQ SCH (09:21)
[2019-07-11] MEDS: *HR* OxyCODONE Immed Rel 5 MG TABLET PO PRN (09:28)
[2019-07-11 11:57] VITALS: BP 144/87
== END 2019-07-11 12:49 | disposition home or self-care (01) | DRG 871 ==
LOC: 3NENU 21:01 → EMEROOARM 21:01 → 3NENU 07-06 01:30 → SUATTDRO 07-06 16:57
PROVIDERS: ADMIT Student in an Organized Health Care Education/Training Program; ATTEND Internal Medicine